=== PATIENT | female | born 1950 | race Caucasian/White ===

== ENCOUNTER 2017-07-07 19:57 | Inpatient (IN) | payer MEDICARE, OTHER ==
[~2017-07-07] VITALS: Ht 170.2 cm; Wt 60.4 kg
--- NOTE | 2017-07-07 20:05 | ED.ADGEN ---
Past History Past Medical History: Anxiety, Dementia, Depression Adult General Chief Complaint Chief Complaint " ,, I don't why I am here... Why did they... send me in the middle of the night..." HPI HPI Patient is a 67 year old female resident of [facility] at [facility], who presents with above hx increased anxiety, uncooperative behavior and sent to ED for screen for SBH. Pt. recent hx of mental status change, refusing meds, therapy and uncooperative with staff. Pt. has been a resident of [facility] since 06/11/17 after Lt hip surgery on 06/08. Pt. has recently been refusing to go to dinning room to eat. Emotional out burst at staff. Pt. does have hx. of Anxiety, Panic disorder, CARDz, HTN, COPD, Nicotine dependence, Hypomagnesium, Stage II CKD, CARBG, Hyponatremia, Dysthymic Personality disorder, Mild Neurocognitive disorder, dementia and recent Lt. Femur fx. Pt. previous under went Psychological assessment by Estefanía Luong ( See report 06/23/2017). Pt. apparently received Haldol before transfer to [place] for which she received bid and prn. for marked agitation and aggressive behavior. Pt very poor historian, appears sedated. Review of Systems Review of Systems Pt. limited historian Constitutional: Denies fever or chills [] Eyes: Denies change in visual acuity, redness, or eye pain [] HENT: Denies nasal congestion or sore throat [] Respiratory: Denies cough or shortness of breath [] Cardiovascular: No additional information not addressed in HPI [] GI: Denies abdominal pain, nausea, vomiting, bloody stools or diarrhea [] : Denies dysuria or hematuria [] Musculoskeletal: Denies back pain or joint pain [] Complaints of Lt hip pain- recent surgery Integument: Denies rash or skin lesions [] Neurologic: Denies headache, focal weakness or sensory changes [] Endocrine: Denies polyuria or polydipsia [] All other systems were reviewed and found to be within normal limits, except as documented in this note. Family History Family History Not currently available. Current Medications Current Medications Current Medications Medications (Trade) Dose Ordered Sig/Shabbir Start Time Stop Time Status Last Admin Dose Admin Cephalexin HCl (Keflex) 500 mg 1X ONCE 07/07/17 22:00 07/07/17 22:01 DC 07/07/17 22:00 500 MG Clindamycin Palmitate HCl (Cleocin Pediatric) 280 mg 1X ONCE 07/07/17 23:45 07/07/17 23:46 UNV See Nursing for record of [facility] rehab[facility] facility meds. Allergies Allergies Allergies Coded Allergies Type Severity Reaction Last Updated Verified Penicillins Allergy Unknown 07/07/17 Yes Sulfa (Sulfonamide Antibiotics) Allergy Unknown 07/07/17 Yes codeine Allergy Unknown 07/07/17 Yes levofloxacin Allergy Unknown 07/07/17 Yes sulfamethoxazole Allergy Unknown 07/07/17 Yes trimethoprim Allergy Unknown 07/07/17 Yes Physical Exam Physical Exam Constitutional: Well developed, well nourished, no acute distress, sedate in appearance. [] HENT: Normocephalic, atraumatic, bilateral external ears normal, oropharynx moist, no oral exudates, nose normal. [] Eyes: PERRLA, EOMI, conjunctiva normal, no discharge. [] Neck: Normal range of motion, no tenderness, supple, no stridor. [] Cardiovascular:Heart rate regular rhythm, no murmur [] Lungs & Thorax: Bilateral breath sounds clear to auscultation [] Mid line scar. Abdomen: Bowel sounds normal, soft, no tenderness, no masses, no pulsatile masses. [] Old scars. Skin: Warm, dry, no erythema, no rash. [] Poor turgor. Back: No tenderness, no CVA tenderness. [] Extremities: No tenderness, no cyanosis, no clubbing, ROM intact, no edema. [] Old harvest scars. Arthritis changes. lt. hips scar. No inflammation. Neurologic: Alert and oriented X 3, but slow to respond, no gross motor or sensory deficits from base line, no gross focal deficits noted. [] Psychologic: Affect flat, judgement appears limited, depressed mood normal. [] Denies suicidal ideation. Current Patient Data Vital Signs Vital Signs Date Time Temp Pulse Resp B/P (MAP) Pulse Ox O2 Delivery O2 Flow Rate FiO2 07/07/17 23:40 98.0 81 18 145/62 (89) 98 Room Air Lab Results Laboratory Tests Test 07/07/17 20:30 White Blood Count 11.3 x10^3/uL (4.0-11.0) H Red Blood Count 2.61 x10^6/uL (3.50-5.40) L Hemoglobin 8.3 g/dL (12.0-15.5) L Hematocrit 25.4 % (36.0-47.0) L Mean Corpuscular Volume 97 fL (79-100) Mean Corpuscular Hemoglobin 32 pg (25-35) Mean Corpuscular Hemoglobin Concent 33 g/dL (31-37) Red Cell Distribution Width 17.5 % (11.5-14.5) H Platelet Count 440 x10^3/uL (140-400) H Neutrophils (%) (Auto) 72 % (31-73) Lymphocytes (%) (Auto) 21 % (24-48) L Monocytes (%) (Auto) 6 % (0-9) Eosinophils (%) (Auto) 1 % (0-3) Basophils (%) (Auto) 1 % (0-3) Neutrophils # (Auto) 8.2 x10^3uL (1.8-7.7) H Lymphocytes # (Auto) 2.3 x10^3/uL (1.0-4.8) Monocytes # (Auto) 0.6 x10^3/uL (0.0-1.1) Eosinophils # (Auto) 0.1 x10^3/uL (0.0-0.7) Basophils # (Auto) 0.1 x10^3/uL (0.0-0.2) Erythrocyte Sedimentation Rate 65 (0-25) H Prothrombin Time 11.6 SEC (9.4-11.4) H Prothrombin Time INR 1.1 (0.9-1.1) PTT 30 SEC (23-33) Urine Collection Type Unknown Urine Color Yellow Urine Clarity Cloudy Urine pH 6.5 Urine Specific [place] 1.015 Urine Protein Neg (NEG-TRACE) Urine Glucose (UA) Neg mg/dL (NEG) Urine Ketones (Stick) Neg mg/dL (NEG) Urine Blood Neg (NEG) Urine Nitrite Neg (NEG) Urine Bilirubin Neg (NEG) Urine Urobilinogen Dipstick 0.2 mg/dL (0.2 mg/dL) Urine Leukocyte Esterase Trace (NEG) Urine RBC 0 /HPF (0-2) Urine WBC 5-10 /HPF (0-4) Urine Squamous Epithelial Cells Occ /LPF Urine Bacteria Many /HPF (0-FEW) Sodium Level 136 mmol/L (136-145) Potassium Level 4.4 mmol/L (3.5-5.1) Chloride Level 101 mmol/L (98-107) Carbon Dioxide Level 27 mmol/L (21-32) Anion Gap 8 (6-14) Blood Urea Nitrogen 15 mg/dL (7-20) Creatinine 1.3 mg/dL (0.6-1.0) H Estimated GFR (Cockcroft-Gault) 41.1 Glucose Level 125 mg/dL (70-99) H Calcium Level 9.1 mg/dL (8.5-10.1) Magnesium Level 1.9 mg/dL (1.8-2.4) Creatine Kinase 24 U/L (26-192) L Creatine Kinase MB (Mass) 0.6 ng/mL (0.0-3.6) Creatine Kinase MB Relative Index 2.5 % (0-4) Troponin I Quantitative < 0.017 ng/mL (0-0.055) BB-Let-F-Type Natriuretic Peptide 685 pg/mL (0-124) H Urine Opiates Screen Pos (NEG) Urine Methadone Screen Neg (NEG) Urine Barbiturates Neg (NEG) Urine Phencyclidine Screen Neg (NEG) Urine Amphetamine/Methamphetamine Neg (NEG) Urine Benzodiazepines Screen Neg (NEG) Urine Cocaine Screen Neg (NEG) Urine Cannabinoids Screen Neg (NEG) Urine Ethyl Alcohol Neg (NEG) EKG EKG My interpretation of EKG shows sinus rate of 81, no findings of acute STEMI with contralateral changes. []Sone non-specific anteroseptal changes and T changes. Radiology/Procedures Radiology/Procedures My interpretation of CT head shows no shift, mass, edema, bleed or fx. White mater changes[] My interpretation of CXR shows marked scoliosis. No acute cardiopulmonary findings. DJD joint changes. Old surgery clips. Course & Med Decision Making Course & Med Decision Making Pertinent Labs and Imaging studies reviewed. (See chart for details). Discussed presentation, testing and tx. plan with Dr. Wilkinson. Will follow up labs . Pt. to be admitted to [facility]- Dr. Lott. [] Final Impression Final Impression 1. Mental Status Change[] 2. Recent Lt Hip Fx- repair 3. UTI 4. Anemia 5. Leukocytosis 6. Elevated Creat. 7. Hx Dementia 8. Hx Anxiety 9. Hx of Agitation Problems: Dragon Disclaimer Dragon Disclaimer This electronic medical record was generated, in whole or in part, using a voice recognition dictation system. GENE CRAWFORD MD Jul 07, 2017 20:05
--- NOTE | 2017-07-07 20:20 | EKG ---
[address] [address] Test Date: 2017-07-07 Test Time: 20:15:44 Pat Name: QUYEN KELLEY Department: Room: Gender: F C 42A Crew Chief: KORY : 1950 Requested By: GENE CRAWFORD Order Number: [id number] Reading MD: Measurements Intervals [place] Rate: 81 P: 64 DC: 170 QRS: 45 QRSD: 78 T: 74 QT: 360 QTc: 419 Interpretive Statements SINUS RHYTHM QRS(T) CONTOUR ABNORMALITY CONSIDER ANTEROSEPTAL MYOCARDIAL DAMAGE T ABNORMALITY IN HIGH LATERAL LEADS ABNORMAL ECG RI6.01 No previous ECG available for comparison
[2017-07-07 20:58] LABS: BASO # 0.1 x10^3/uL (0.0-0.2); BASO % 1 % (0-3); EOS # 0.1 x10^3/uL (0.0-0.7); EOS % 1 % (0-3); HEMATOCRIT 25.4 % (36.0-47.0); HEMOGLOBIN 8.3 g/dL (12.0-15.5); LYMPH # 2.3 x10^3/uL (1.0-4.8); LYMPH % 21 % (24-48); MEAN CORPUSCULAR HEMOGLOBIN 32 pg (25-35); MEAN CORPUSCULAR HGB CONC 33 g/dL (31-37); MEAN CORPUSCULAR VOLUME 97 fL (79-100); MONO # 0.6 x10^3/uL (0.0-1.1); MONO % 6 % (0-9); NEUT # 8.2 x10^3uL (1.8-7.7); NEUT % 72 % (31-73); PLATELET COUNT 440 x10^3/uL (140-400); RED BLOOD COUNT 2.61 x10^6/uL (3.50-5.40); RED CELL DISTRIBUTION WIDTH 17.5 % (11.5-14.5); WHITE BLOOD COUNT 11.3 x10^3/uL (4.0-11.0)
[2017-07-07 21:03] LABS: BARBITURATES NEG (NEG); BENZODIAZEPINES NEG (NEG); CANNABINOIDS NEG (NEG); COCAINE NEG (NEG); METHADONE NEG (NEG); OPIATES POS (NEG); PHENCYCLIDINE NEG (NEG)
[2017-07-07 21:05] LABS: AMPHETAMINE/METHAMPHETAMINE NEG (NEG); CLARITY,URINE CLOUDY; COLOR,URINE YELLOW; GLUCOSE,URINE NEG (NEG)
[2017-07-07 21:06] LABS: BACTERIA,URINE MANY /HPF (0-FEW); BILIRUBIN,URINE NEG (NEG); NITRITE,URINE NEG (NEG); RBC,URINE 0 /HPF (0-2); SQUAMOUS EPITHELIAL CELL,UR OCC /LPF; UROBILINOGEN,URINE 0.2 mg/dL (0.2 mg/dL)
[2017-07-07 21:21] LABS: CALCIUM 9.1 mg/dL (8.5-10.1); CREATININE 1.3 mg/dL (0.6-1.0); GFR 41.1; MAGNESIUM 1.9 mg/dL (1.8-2.4); POTASSIUM 4.4 mmol/L (3.5-5.1)
--- NOTE | 2017-07-07 21:37 | RAD ---
PQRS Compliance Statement: One or more of the following individualized dose reduction techniques were utilized for this examination: 1. Automated exposure control 2. Adjustment of the mA and/or kV according to patient size 3. Use of iterative reconstruction technique CT HEAD WITHOUT CONTRAST History: Mental status change Comparison: None. Technique: Axial images are obtained of the head from the skull base through the vertex without IV contrast. Findings: No mass-effect, midline shift, extra-axial fluid collection, hemorrhage, or obvious acute infarction is identified. Basilar cisterns are patent. The ventricles and sulci are prominent, consistent with age-related cerebral atrophy. There is periventricular white matter hypoattenuation. This is a nonspecific finding but is commonly due to chronic small vessel ischemic disease. Bone windows demonstrate no acute calvarial abnormality. The visualized paranasal sinuses are clear. Mastoid air cells are well aerated. IMPRESSION: No acute intracranial abnormality. Electronically signed by: Lio Snyder MD (07/07/2017 9:33 PM) [facility]
[2017-07-07] MEDS ORDERED: HYDR-971 PO (21:45)
[2017-07-07] MEDS ORDERED: CHOL10003 PO (21:45)
[2017-07-07] MEDS ORDERED: FAMO40TA4 PO (21:45)
[2017-07-07] MEDS ORDERED: IPRA3AMP NEB (21:45)
[2017-07-07] MEDS ORDERED: ESCITALOPRAM OX20 MG PO (21:45)
[2017-07-07] MEDS ORDERED: FERR325T14 PO (21:45)
[2017-07-07] MEDS ORDERED: ASPI81TA50 PO (21:45)
[2017-07-07] MEDS ORDERED: LIDO700A39 TP (21:45)
[2017-07-07] MEDS ORDERED: MULT-671 PO (21:45)
[2017-07-07] MEDS ORDERED: LISI-338 PO (21:45)
[2017-07-07] MEDS ORDERED: NICO1PAT21 TD (21:45)
[2017-07-07] MEDS ORDERED: METO25TA2 PO (21:45)
[2017-07-07] MEDS ORDERED: HALO2TAB PO ×2 (21:45)
[2017-07-07] MEDS ORDERED: ATORVASTATIN CA80 MG PO (21:45)
[2017-07-07] MEDS ORDERED: ACET325T9 PO (21:45)
[2017-07-07] MEDS ORDERED: ENOX40DI SQ (21:45)
[2017-07-07] MEDS ORDERED: LEVE500T56 PO (21:45)
[2017-07-07] MEDS ORDERED: MAGN400O7 PO (21:45)
[2017-07-07] MEDS ORDERED: PANT40TA3 PO (21:45)
[2017-07-07] MEDS ORDERED: BUDE10.2 IH (21:45)
[2017-07-07] MEDS ORDERED: BENZ100C PO (21:45)
[2017-07-07] MEDS ORDERED: NA P133E2 RC (21:45)
[2017-07-07] MEDS ORDERED: POTA10TA10 PO (21:45)
[2017-07-07] MEDS ORDERED: CLON1TAB3 PO (21:45)
[2017-07-07] MEDS ORDERED: MAGN400T3 PO (21:45)
[2017-07-07] MEDS ORDERED: CEPHALEXIN 250 MG CAPSULE PO ONE (22:00)
[2017-07-07 22:04] LABS: SEDIMENTATION RATE 65 (0-25)
[2017-07-07] MEDS ORDERED: CLINDAMYCIN 75 MG/5 ML ORAL SOLUTION. PO ONE (23:45)
[2017-07-08] MEDS ORDERED: HALOPERIDOL 2 MG TABLET PO PRN (00:30)
[2017-07-08] MEDS ORDERED: METHYL SALICYLATE/MENTHOL TOPICAL OINTMENT 29GM TUBE. TP PRN (00:30)
[2017-07-08] MEDS ORDERED: SODIUM PHOSPHATES 19/7GM 133 ML ENEMA. RC PRN (00:30)
[2017-07-08] MEDS ORDERED: BENZONATATE 100 MG CAPSULE. PO PRN (00:30)
[2017-07-08] MEDS ORDERED: MAGNESIUM HYDROXIDE 2,400 MG/30 ML ORAL.SUSP. PO PRN (00:30)
[2017-07-08] MEDS ORDERED: MAG HYDROX/AL HYDROX/SIMETH 30 ML ORAL.SUSP PO PRN (00:30)
[2017-07-08] MEDS: HYDROcodone/APAP 5/325MG 1 TAB TABLET PO PRN ×3 (00:43→18:38)
[2017-07-08] MEDS ORDERED: CLINDAMYCIN HCL 150 MG CAPSULE PO ONE (00:45)
[2017-07-08 07:45] LABS: BASO % 0 % (0-3); EOS # 0.1 x10^3/uL (0.0-0.7); EOS % 1 % (0-3); HEMATOCRIT 27.8 % (36.0-47.0); HEMOGLOBIN 9.3 g/dL (12.0-15.5); LYMPH # 2.4 x10^3/uL (1.0-4.8); LYMPH % 21 % (24-48); MEAN CORPUSCULAR HEMOGLOBIN 33 pg (25-35); MEAN CORPUSCULAR HGB CONC 34 g/dL (31-37); MEAN CORPUSCULAR VOLUME 97 fL (79-100); MONO # 0.6 x10^3/uL (0.0-1.1); MONO % 5 % (0-9); NEUT # 8.5 x10^3uL (1.8-7.7); NEUT % 73 % (31-73); PLATELET COUNT 443 x10^3/uL (140-400); RED BLOOD COUNT 2.86 x10^6/uL (3.50-5.40); RED CELL DISTRIBUTION WIDTH 17.2 % (11.5-14.5); WHITE BLOOD COUNT 11.7 x10^3/uL (4.0-11.0)
[2017-07-08] MEDS: FAMOTIDINE 20 MG TABLET PO SCH ×2 (07:45→20:09)
[2017-07-08] MEDS: ENOXAPARIN 40 MG/0.4 ML DISP.SYRIN. SQ SCH (07:45)
[2017-07-08] MEDS: FERROUS SULFATE 325 MG TABLET. PO SCH (07:45)
[2017-07-08] MEDS: MULTIVITAMIN with MINERAL TABLET. PO SCH (07:45)
[2017-07-08] MEDS: ASPIRIN ENTERIC COATED 81 MG TABLET.DR. PO SCH (07:45)
[2017-07-08] MEDS: CHOLECALCIFEROL (VITAMIN D3) 1,000 UNIT TABLET PO SCH (07:45)
[2017-07-08] MEDS: LISINOPRIL 5 MG TABLET. PO SCH ×2 (07:45→20:10)
[2017-07-08] MEDS: clonazePAM 1 MG TABLET PO SCH ×3 (07:46→20:09)
[2017-07-08] MEDS: levETIRAcetam 500 MG TABLET PO SCH ×2 (07:46→20:09)
[2017-07-08] MEDS: HALOPERIDOL 2 MG TABLET PO SCH ×2 (07:46→20:09)
[2017-07-08] MEDS: POTASSIUM CHLORIDE 10 MEQ TABLET.ER. PO SCH ×2 (07:46→18:08)
[2017-07-08] MEDS: NICOTINE 21MG PATCH. TD SCH (07:47)
[2017-07-08] MEDS: LIDOCAINE (700MG/PATCH) PATCH. TP SCH (07:47)
[2017-07-08] MEDS: METOPROLOL SUCC 24HR ER 25 MG TAB.ER.24H. PO SCH (07:51)
[2017-07-08] MEDS: MAGNESIUM OXIDE 400 MG TABLET PO SCH (07:51)
[2017-07-08 07:54] LABS: ALBUMIN 2.6 g/dL (3.4-5.0); ALBUMIN/GLOBULIN RATIO 0.7 (1.0-1.7); CALCIUM 9.3 mg/dL (8.5-10.1); CREATININE 1.3 mg/dL (0.6-1.0); GFR 41.1; POTASSIUM 4.5 mmol/L (3.5-5.1); TOTAL BILIRUBIN 0.3 mg/dL (0.2-1.0); TOTAL PROTEIN 6.6 g/dL (6.4-8.2)
--- NOTE | 2017-07-08 08:48 | RAD ---
AP chest x-ray History: Shortness of breath. Findings: Heart size normal. Thoracic aorta calcified plaque. There is asymmetric enlargement of the left hilum. Hyperexpansion of the lungs with decreased pulmonary vasculature at the apices likely indicative of pulmonary emphysema. There is no pleural line evident to suggest a pneumothorax. No pulmonary opacities or pleural effusions. Thoracolumbar scoliosis. Right posterior 10th rib fracture with mild distraction of indeterminate age. Impression: Age-indeterminate fracture of the right posterior 10th rib fracture. No acute cardiopulmonary process. Asymmetric enlargement of the left hilum which could be due to overlapping pulmonary vasculature versus a mass or adenopathy. This could be further assessed by CT imaging. See discussion above.
[2017-07-08] MEDS ORDERED: CITALOPRAM 20 MG TABLET. PO SCH (09:00)
[2017-07-08] MEDS ORDERED: NON FORMULARY ITEM (Budesonide/Formoterol Fumarate (Symbicort 160-4.5 Mcg Inhaler) 2 PUFF) IH SCH (09:00)
[2017-07-08] MEDS ORDERED: ALBUTEROL SULFATE 2.5 MG/3 ML NEBU. NEB PRN (10:00)
[2017-07-08 10:11] LABS: THYROID STIM HORMONE (TSH) 2.471 uIU/mL (0.358-3.740)
[2017-07-08 13:14] LABS: THYROXINE 7.5 ug/dL (4.5-12.0)
--- NOTE | 2017-07-08 14:59 | CONS ---
DATE OF CONSULTATION: 07/08/2017 REASON FOR CONSULTATION: Medical management. HISTORY OF PRESENT ILLNESS: The patient a 67-year-old female patient resident who is currently at [facility] where she is supposed to be getting rehabilitation as she broke her hip and underwent open reduction and internal fixation. However, the patient has been increasingly depressed, refusing to get out of bed or do therapy. Her appetite is very poor and decreased withdrawal behavior. When I questioned her today, she is complaining of pain mostly in her back and her head. She was in a wheelchair, as she wanted to bed, she refused to have her lunch. PAST MEDICAL HISTORY: Significant for coronary artery disease, hypertension, hyperlipidemia, COPD, hypomagnesemia, hyponatremia, stage 3 chronic kidney disease. She continued to smoke. She apparently has broken both hips, although not the same time and for both she underwent open reduction and internal fixation. PAST PSYCHIATRIC HISTORY: Significant for major depressive disorder, anxiety and panic attack. PAST SURGICAL HISTORY: Significant for bilateral hip fractures, status post open reduction and internal fixation. She has also appendectomy and cholecystectomy. ALLERGIES: PENICILLIN, SULFA DRUGS, CODEINE, LEVOFLOXACIN, SULFAMETHOXAZOLE AND TRIMETHOPRIM. MEDICATIONS: She is currently on following medications: She is on DuoNeb 0.5-2.5 mg 3 mL by nebulizer twice a day. She is on nicotine patch 21 mg transdermal patch daily, ferrous sulfate 325 mg every other day, Lovenox 40 mg daily, atorvastatin calcium 80 mg at bedtime, metoprolol succinate 25 mg once a day, lisinopril 5 mg twice a day, aspirin 81 mg once a day. She is on hydrocodone/APAP 5/325 one tablet every 6 hours, Tylenol 650 mg every 4 hours, clonazepam 1 mg 3 times a day, levetiracetam or Keppra 500 mg twice a day. She is on Lexapro 20 mg once a day, Haldol 2 mg twice a day, potassium chloride 10 mEq twice a day. She is on Symbicort 160/4.5 mcg 2 puffs twice a day, magnesium oxide 400 mg once a day, magnesium oxide, milk of magnesia 30 mL p.o. daily p.r.n. for constipation, famotidine 40 mg twice a day, Protonix 40 mg daily, Lidoderm patch topically to the right hip on for 12 hours and off for 12 hours, vitamin D 1000 international unit once a day, multivitamin 1 tablet once a day. FAMILY HISTORY: Unremarkable. SOCIAL HISTORY: She apparently used to live alone. She has 2 sons. 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 She has been a smoker for 40 years. She said she cut down and now smoking only 4 cigarettes. Does not drink alcohol or use any recreational drugs. REVIEW OF SYSTEMS: She basically denied any blurring of vision, did have bilateral cataracts, but denied any glaucoma or macular degeneration. Denied any earache, tinnitus or sensorineural deafness. Denied any nosebleeds, stuffy nose or postnasal drip. Denied any sore throat, sore tongue, toothache, hoarseness of voice or difficulty swallowing. Denied any nausea, vomiting, diarrhea or constipation. Denied any hematemesis, melena or hematochezia. Denied any dysuria, frequency or hematuria. Denied any chest pain, shortness of breath, orthopnea, paroxysmal nocturnal dyspnea. Her main complaint is low back pain and pain in both hip joints and inability to walk. PHYSICAL EXAMINATION: GENERAL: When I saw her today, she was sitting comfortably in her wheelchair, in no apparent distress. She was extremely pale, cachectic, no jaundice or cyanosis. No lymphadenopathy, no thyromegaly. No jugular venous distension. No lower limb edema. VITAL SIGNS: Her heart rate was 81, blood pressure was 145/62, temperature was 98, respiratory rate was 20, and oxygen saturation was 98% on room air. HEENT: Showed normocephalic, atraumatic. NECK: Supple, with no lymphadenopathy, no thyromegaly. No jugular venous distension. No audible bruit. HEART: Showed normal first and second heart sounds with no gallop, rub or murmur. CHEST: Clear to auscultation. No crepitation or rhonchi. ABDOMEN: Scaphoid, soft, nontender. NEUROLOGIC: She is awake, alert. All her cranial nerves intact. She has a slow monotonous speech. She moves extremities without difficulty. She has marked muscle wasting and weakness. She is mostly bedbound, chair bound. LABORATORY DATA: As of this morning showed a white cell count of 11,700, hemoglobin 9, hematocrit 27, MCV 97, and platelet count 443,000. Her chemistry showed a serum sodium 135, potassium 4.5, chloride 100, bicarbonate 27, anion gap of 8, BUN 14, creatinine 1.3, estimated GFR was 41 mL per minute. His glucose was 99, calcium was 9.3. Her serum iron was 16, TIBC was 146 and percent saturation was 11. Total bilirubin, AST, ALT were normal. Alkaline phosphatase was slightly elevated. Total protein was 6.6, albumin was 2.6. Her serum triglycerides were 96. Total cholesterol was 89, LDL was 26, VLDL was 19, HDL cholesterol was 44 and the ratio was 2. Her TSH was normal at 2.471. Her prothrombin time was 11.6, INR 1.1, aPTT was 30, and her urinalysis was essentially unremarkable. There were only 5-10 WBC, many bacteria, but negative for nitrite and trace of leukocyte esterase. Her toxic screen was positive for opiates, but negative for methadone, barbiturates, phencyclidine, amphetamine and methamphetamine, benzodiazepine, cocaine as well as alcohol. She did have a chest x-ray, which showed the heart size is normal. There is a symmetric enlargement of the left hilum, hyperexpansion of the lungs with decreased pulmonary vasculature. This is likely indicative of pulmonary emphysema. There is no pleural effusion evident to suggest pneumothorax and no pulmonary opacities or pleural effusion. Thoracolumbar scoliosis, right posterior tenth rib fracture with mild distraction of indeterminate age. She has had a CT scan of the head, which basically showed that no mass effect, midline shift, extra-axial fluid collection, hemorrhage or obvious acute infarction identified. Basilar cisterns are patent. The ventricles and sulci are prominent consistent with age-related cerebral atrophy. There is periventricular white matter hypoattenuation. This is a nonspecific finding, but is commonly due to chronic small vessel ischemic disease. IMPRESSION: In summary, this is a 67-year-old female patient who is currently at [facility] after she broke her left femur, treated with open reduction and internal fixation. She apparently has been increasingly depressed, refusing to get out of the bed or do therapy, decreased appetite, increasingly withdrawn, behavior, all this in a background of major depressive disorder with psychotic features. The patient is here for inpatient psychiatric stabilization. Medically she seemed to be stable. All her vital signs and her lab works are all within acceptable range. She has back pain and pain in her hip joints as well as poor appetite. PLAN: My plan is to x-ray of her hips and also her back and also given that her poor appetite and her body mass index, sometimes pancreatic cancer can be presented with severe depression and I will arrange for her to have a CT scan of the abdomen and pelvis and would decide on further management accordingly. Thank you for giving me the opportunity to participate in the care of this patient. JOEL DAVIS MD DR: LEW/mikey JOB#: [id number] / [id number]
--- NOTE | 2017-07-08 15:21 | RAD ---
CT abdomen and pelvis with contrast History: Abdominal pain, back pain with weight loss. Technique: Helical CT imaging of the abdomen and pelvis with 60 mL Omnipaque 300 intravenous contrast. Abdomen findings: Lumbar scoliosis with disc bulges and facet osteophytes and multilevel spinal canal and neural foraminal stenoses. There is mild anterior buckling and bone sclerosis of the third sacral vertebra without a lucent fracture, likely an old healed fracture. There is a subacute or chronic fifth sacral segment fracture with mild cortical offset and bone sclerosis. Old right posterior 11th rib fracture. Dilation of the extrahepatic bile ducts the common bile duct has a diameter of 12 mm proximally and tapers distally likely related to cholecystectomy. Pancreatic duct diameter 3 mm upper limits of normal. 2 cm oval hypodense lesion central right hepatic lobe adjacent to the IVC density of 40 units this is indeterminate. There appear to be small densities along the posterior aspect of the common duct on axial images 38-40, small calculi are not excluded. Pancreas, adrenals, spleen unremarkable. Numerous renal cysts as well as hypodensities lesions which are indeterminate based on their internal density of greater than 20 units. Appendix is not visualized. No obstruction or inflammatory changes in GI tract. Extensive calcified plaque of the aorta and arteries and iliac arteries with moderate stenotic disease, severe stenoses of the common iliac arteries are likely present. No abdominal fluid or adenopathy. Pelvis findings: Hysterectomy. Ovaries are absent. Bladder and rectum are unremarkable. No fluid or adenopathy. Screws of the right femoral neck bridging a nonunion fracture. Left hip arthroplasty with surrounding streak artifact. Impression: 1. Mild biliary ductal dilation. Common bile duct diameter is 12 mm. While this could be secondary to cholecystectomy, there are subtle densities at the distal common duct dependently raising the possibility of choledocholithiasis. 2. Renal cysts and indeterminate hypodense lesions based on densities of greater than 20 units may be hemorrhagic cysts although hypodense solid masses cannot be excluded. Correlation with nonemergent renal sonography may be of benefit. 3. Lumbar disc disease with multilevel spinal canal stenoses. 4. Chronic-appearing sacral fractures as described above. 5. Indeterminate 2 cm oval hypodense lesion of the right hepatic lobe with an internal density of 40 units. This may be further characterized by sonography or MR imaging. 6. Appendix not visualized. 7. Iliac artery atherosclerotic disease with high-grade stenoses.
[2017-07-08 16:07] VITALS: BP 104/52
[2017-07-08] MEDS: PANTOPRAZOLE 40 MG TABLET. PO SCH (18:07)
[2017-07-08] MEDS: ACETAMINOPHEN 325 MG TABLET PO PRN (18:38)
[2017-07-08] MEDS ORDERED: traZODone 50 MG TABLET. PO PRN (19:30)
--- NOTE | 2017-07-08 19:41 | PDOC ---
Exam Note: Avery Note: Please also refer to the separate dictated note~for this date of service dictated separately.~Patient seen individually. Discussed the patient with Nursing staff reviewed the chart.~Reviewed interim history and current functioning. Reviewed vital signs,~Labs/ Radiology~and current medications noted below. Continue current treatment with the changes noted in the dictated addendum note Assessment: Vital Signs: Vital Signs Date Time Temp Pulse Resp B/P (MAP) Pulse Ox O2 Delivery O2 Flow Rate FiO2 07/08/17 18:38 98 07/08/17 16:07 97.7 79 18 104/52 (69) Room Air Labs: Laboratory Tests Test 07/07/17 20:30 07/08/17 07:34 White Blood Count 11.3 x10^3/uL (4.0-11.0) H 11.7 x10^3/uL (4.0-11.0) H Red Blood Count 2.61 x10^6/uL (3.50-5.40) L 2.86 x10^6/uL (3.50-5.40) L Hemoglobin 8.3 g/dL (12.0-15.5) L 9.3 g/dL (12.0-15.5) L Hematocrit 25.4 % (36.0-47.0) L 27.8 % (36.0-47.0) L Mean Corpuscular Volume 97 fL (79-100) 97 fL (79-100) Mean Corpuscular Hemoglobin 32 pg (25-35) 33 pg (25-35) Mean Corpuscular Hemoglobin Concent 33 g/dL (31-37) 34 g/dL (31-37) Red Cell Distribution Width 17.5 % (11.5-14.5) H 17.2 % (11.5-14.5) H Platelet Count 440 x10^3/uL (140-400) H 443 x10^3/uL (140-400) H Neutrophils (%) (Auto) 72 % (31-73) 73 % (31-73) Lymphocytes (%) (Auto) 21 % (24-48) L 21 % (24-48) L Monocytes (%) (Auto) 6 % (0-9) 5 % (0-9) Eosinophils (%) (Auto) 1 % (0-3) 1 % (0-3) Basophils (%) (Auto) 1 % (0-3) 0 % (0-3) Neutrophils # (Auto) 8.2 x10^3uL (1.8-7.7) H 8.5 x10^3uL (1.8-7.7) H Lymphocytes # (Auto) 2.3 x10^3/uL (1.0-4.8) 2.4 x10^3/uL (1.0-4.8) Monocytes # (Auto) 0.6 x10^3/uL (0.0-1.1) 0.6 x10^3/uL (0.0-1.1) Eosinophils # (Auto) 0.1 x10^3/uL (0.0-0.7) 0.1 x10^3/uL (0.0-0.7) Basophils # (Auto) 0.1 x10^3/uL (0.0-0.2) 0.0 x10^3/uL (0.0-0.2) Erythrocyte Sedimentation Rate 65 (0-25) H 74 (0-25) H Reticulocyte Count (auto) 1.6 % (0.5-2.5) Prothrombin Time 11.6 SEC (9.4-11.4) H Prothrombin Time INR 1.1 (0.9-1.1) PTT 30 SEC (23-33) Urine Collection Type Unknown Urine Color Yellow Urine Clarity Cloudy Urine pH 6.5 Urine Specific [place] 1.015 Urine Protein Neg (NEG-TRACE) Urine Glucose (UA) Neg mg/dL (NEG) Urine Ketones (Stick) Neg mg/dL (NEG) Urine Blood Neg (NEG) Urine Nitrite Neg (NEG) Urine Bilirubin Neg (NEG) Urine Urobilinogen Dipstick 0.2 mg/dL (0.2 mg/dL) Urine Leukocyte Esterase Trace (NEG) Urine RBC 0 /HPF (0-2) Urine WBC 5-10 /HPF (0-4) Urine Squamous Epithelial Cells Occ /LPF Urine Bacteria Many /HPF (0-FEW) Sodium Level 136 mmol/L (136-145) 135 mmol/L (136-145) L Potassium Level 4.4 mmol/L (3.5-5.1) 4.5 mmol/L (3.5-5.1) Chloride Level 101 mmol/L (98-107) 100 mmol/L (98-107) Carbon Dioxide Level 27 mmol/L (21-32) 27 mmol/L (21-32) Anion Gap 8 (6-14) 8 (6-14) Blood Urea Nitrogen 15 mg/dL (7-20) 14 mg/dL (7-20) Creatinine 1.3 mg/dL (0.6-1.0) H 1.3 mg/dL (0.6-1.0) H Estimated GFR (Cockcroft-Gault) 41.1 41.1 Glucose Level 125 mg/dL (70-99) H 99 mg/dL (70-99) Calcium Level 9.1 mg/dL (8.5-10.1) 9.3 mg/dL (8.5-10.1) Magnesium Level 1.9 mg/dL (1.8-2.4) Iron Level 16 ug/dL (50-170) L Total Iron Binding Capacity 146 ug/dL (250-450) L Iron Saturation 11 % (15-34) L Creatine Kinase 24 U/L (26-192) L Creatine Kinase MB (Mass) 0.6 ng/mL (0.0-3.6) Creatine Kinase MB Relative Index 2.5 % (0-4) Troponin I Quantitative < 0.017 ng/mL (0-0.055) MR-Lnz-D-Type Natriuretic Peptide 685 pg/mL (0-124) H Triglycerides Level 96 mg/dL (0-150) Cholesterol Level 89 mg/dL (0-200) LDL Cholesterol, Calculated 26 mg/dL (0-100) VLDL Cholesterol, Calculated 19 mg/dL (0-40) Non-HDL Cholesterol Calculated 45 mg/dL (0-129) HDL Cholesterol 44 mg/dL (40-60) Cholesterol/HDL Ratio 2.0 Thyroid Stimulating Hormone (TSH) 2.471 uIU/mL (0.358-3.740) Thyroxine (T4) 7.5 ug/dL (4.5-12.0) Total Triiodothyronine (TT3) 98 ng/dL (71-180) Urine Opiates Screen Pos (NEG) Urine Methadone Screen Neg (NEG) Urine Barbiturates Neg (NEG) Urine Phencyclidine Screen Neg (NEG) Urine Amphetamine/Methamphetamine Neg (NEG) Urine Benzodiazepines Screen Neg (NEG) Urine Cocaine Screen Neg (NEG) Urine Cannabinoids Screen Neg (NEG) Urine Ethyl Alcohol Neg (NEG) BUN/Creatinine Ratio 11 (6-20) Total Bilirubin 0.3 mg/dL (0.2-1.0) Aspartate Amino Transferase (AST) 19 U/L (15-37) Alanine Aminotransferase (ALT) 22 U/L (14-59) Alkaline Phosphatase 150 U/L (46-116) H C-Reactive Protein 43.7 mg/L (0-3.3) H Total Protein 6.6 g/dL (6.4-8.2) Albumin 2.6 g/dL (3.4-5.0) L Albumin/Globulin Ratio 0.7 (1.0-1.7) L Current Medications: Meds: Current Medications Cephalexin HCl (Keflex) 500 mg 1X ONCE PO Last administered on 07/07/17at 22:00 ; Start 07/07/17 at 22:00; Stop 07/07/17 at 22:01; Status DC Clindamycin Palmitate HCl (Cleocin Pediatric) 280 mg 1X ONCE PO ; Start at 23:45; Stop 07/07/17 at 23:46; Status UNV Acetaminophen (Tylenol) 650 mg PRN Q6HRS PRN PO PAIN / TEMP Last administered on 07/08/17at 18:38; Start 07/08/17 at 00:30 Multi-Ingredient Ointment (Analgesic [place]) 1 meme PRN QID PRN TP MUSCLE PAIN; Start 07/08/17 at 00:30 Al Hydroxide/Mg Hydroxide (Mylanta Plus Xs) 15 ml PRN AFTMEALHC PRN PO DYSPEPSIA; Start 07/08/17 at 00:30 Nicotine (Nicoderm Cq 21mg) 1 patch DAILY TD Last administered on 07/08/17at 07: 47; Start 07/08/17 at 09:00 Clonazepam (KlonoPIN) 1 mg TID PO Last administered on 07/08/17at 12:12; Start 07/08/17 at 09:00; Stop 07/08/17 at 19:33; Status DC Haloperidol (Haldol) 1 mg BID PO Last administered on 07/08/17at 07:46; Start at 09:00 Haloperidol (Haldol) 2 mg PRN Q6HRS PRN PO AGITATION; Start 07/08/17 at 00:30 Levetiracetam (Keppra) 500 mg BID PO Last administered on 07/08/17 07:46; Start 07/08/17 at 09:00 Citalopram Hydrobromide (CeleXA) 40 mg DAILY PO Last administered on 07/08/17 07:46; Start 07/08/17 at 09:00; Stop 07/08/17 at 19:33; Status DC Aspirin (Aspirin Enteric Coated) 81 mg DAILY PO Last administered on 07/08/17 07:45; Start 07/08/17 at 09:00 Benzonatate (Tessalon Perle) 100 mg PRN TID PRN PO COUGH; Start 07/08/17 at 00: 30 Vitamin D (Vitamin D3) 1,000 unit DAILY PO Last administered on 07/08/17at 07:45 ; Start 07/08/17 at 09:00 Enoxaparin Sodium (Lovenox) 40 mg DAILY SQ Last administered on 07/08/17 07:45 ; Start 07/08/17 at 09:00 Ferrous Sulfate (Feosol) 325 mg QODAY PO Last administered on 07/08/17 07:45; Start 07/08/17 at 09:00 Acetaminophen/ Hydrocodone Bitart (Lortab 5/325) 1 tab PRN Q6HRS PRN PO PAIN Last administered on 07/08/17at 18:38; Start 07/08/17 at 00:30 Albuterol/ Ipratropium (Duoneb) 3 ml RTBID NEB ; Start 07/08/17 at 08:00 Lidocaine (Lidoderm) 1 patch DAILY TP Last administered on 07/08/17 07:47; Start 07/08/17 at 09:00 Lisinopril (Prinivil) 5 mg BID PO Last administered on 07/08/17 07:45; Start 07/08/17 at 09:00 Magnesium Hydroxide (Milk Of Magnesia) 2,400 mg PRN DAILY PRN PO CONSTIPATION; Start 07/08/17 at 00:30 Magnesium Oxide (Magnesium Oxide) 400 mg DAILY PO Last administered on at 07:51; Start 07/08/17 at 09:00 Metoprolol Succinate (Toprol Xl) 25 mg DAILY PO Last administered on 07/08/17at 07:51; Start 07/08/17 at 09:00 Sodium Biphosphate/ Sodium Phosphate (Fleet Adult) 133 ml PRN 1X PRN RC CONSTIPATION; Start 07/08/17 at 00:30 Pantoprazole Sodium (Protonix) 80 mg DAILYBFRSUP PO Last administered on at 18:07; Start 07/08/17 at 17:00 Atorvastatin Calcium (Lipitor) 80 mg QHS PO ; Start 07/08/17 at 21:00 Non-Formulary Medication (Budesonide/ Formoterol Fumarate (Symbicort 160-4.5 Mcg Inhaler)) 2 puff BID IH ; Start 07/08/17 at 09:00; Status UNV Famotidine (Pepcid) 40 mg BID PO Last administered on 07/08/17at 07:45; Start at 09:00 Multivitamins/ Calcium (Thera-M Plus) 1 tab DAILY PO Last administered on at 07:45; Start 07/08/17 at 09:00 Potassium Chloride (Klor-Con) 10 meq BIDWMEALS PO Last administered on at 18:08; Start 07/08/17 at 08:00 Miscellaneous (Lidoderm Patch Removal) 1 ea QHS MC ; Start 07/08/17 at 21:00 Clindamycin HCl (Cleocin) 300 mg 1X ONCE PO Last administered on 07/08/17at 00: 43; Start 07/08/17 at 00:45; Stop 07/08/17 at 00:46; Status DC Budesonide (Pulmicort) 0.5 mg RTBID NEB ; Start 07/08/17 at 08:00 Albuterol Sulfate (Ventolin) 2.5 mg PRN Q6HRS PRN NEB SHORTNESS OF BREATH; Start 07/08/17 at 10:00 Bupropion HCl (Wellbutrin Xl) 150 mg DAILY PO ; Start 07/09/17 at 09:00; Stop at 07:00 Bupropion HCl (Wellbutrin Xl) 300 mg DAILY PO ; Start 07/12/17 at 09:00 Trazodone HCl (Desyrel) 50 mg PRN QHS PRN PO INSOMNIA; Start 07/08/17 at 19:30 Clonazepam (KlonoPIN) 0.75 mg DAILY PO ; Start 07/09/17 at 09:00 Clonazepam (KlonoPIN) 1 mg BID PO ; Start 07/08/17 at 21:00; Status UNV Active Scripts Active Reported Vitamin D3 (Cholecalciferol (Vitamin D3)) 1,000 Unit Tablet 1,000 Unit PO DAILY Toprol Xl (Metoprolol Succinate) 25 Mg Tab.er.24h 25 Mg PO DAILY Tessalon Perle (Benzonatate) 100 Mg Capsule 100 Mg PO PRN TID PRN Symbicort 160-4.5 Mcg Inhaler (Budesonide/Formoterol Fumarate) 10.2 Gm Hfa.aer.ad 2 Puff IH BID Protonix (Pantoprazole Sodium) 40 Mg Tablet.dr 80 Mg PO DAILYBFRSUP Potassium Chloride 10 Meq Tablet.er 10 Meq PO BID [place] 5-325 Tablet (Hydrocodone Bit/Acetaminophen) 1 Each Tablet 1 Tab PO PRN Q6HRS PRN NICODERM CQ 21mg (Nicotine) 1 Each Patch.td24 1 Patch TD DAILY Dfwkr-Lharwzq-Phfjhlhr Tablet (Multivit-Min/Iron Fum/Folic AC) 1 Each Tablet 1 Tab PO DAILY Milk Of Magnesia (Magnesium Hydroxide) 400 Mg/5 Ml Oral.susp 2,400 Mg PO PRN DAILY PRN Magnesium Oxide 400 Mg Tablet 400 Mg PO DAILY Lisinopril 5 Mg Tablet 5 Mg PO BID Lidocaine 1 Each Adh..patch 1 Patch TP DAILY Keppra (Levetiracetam) 500 Mg Tablet 500 Mg PO BID Duoneb 0.5-3(2.5) Mg/3 Ml (Albuterol/Ipratropium) 3 Ml Ampul.neb 3 Ml NEB BID Haloperidol 2 Mg Tablet 1 Mg PO BID Haloperidol 2 Mg Tablet 2 Mg PO PRN Q6HRS PRN Fleet Enema (Na Phos,M-B/Na Phos,Di-Ba) 133 Ml Enema 133 Ml RC PRN 1X PRN Ferrous Sulfate 325 Mg Tablet 325 Mg PO QODAY Famotidine 40 Mg Tablet 40 Mg PO BID Escitalopram Oxalate 20 Mg Tablet 20 Mg PO DAILY Lovenox (Enoxaparin Sodium) 40 Mg/0.4 Ml Disp.syrin 40 Mg SQ DAILY Clonazepam 1 Mg Tablet 1 Mg PO TID Atorvastatin Calcium 80 Mg Tablet 80 Mg PO QHS Aspir-Low (Aspirin) 81 Mg Tablet. 81 Mg PO DAILY Tylenol (Acetaminophen) 325 Mg Tablet 650 Mg PO PRN Q24HRS PRN I have reviewed the current psychotropics carefully including drug interactions. Risk benefit ratio favors no change other than as noted in my dictated progress note. Diagnosis: Problems: (1) Anxiety disorder (2) Major depressive disorder, recurrent episode (3) Mild cognitive disorder CELESTINE RAY MD Jul 08, 2017 19:40
[2017-07-08] MEDS: BUDESONIDE 0.5 MG/2 ML NEBU NEB SCH ×2 (20:00→22:26)
[2017-07-08] MEDS: IPRATRPIUM/ALBUTEROL 0.5/2.5MG 3 ML NEBU. NEB SCH ×2 (20:00→22:26)
[2017-07-08] MEDS: PATCH REMOVAL. MC SCH (20:11)
[2017-07-08] MEDS: ATORVASTATIN CALCIUM 20 MG TABLET PO SCH (20:13)
--- NOTE | 2017-07-08 22:07 | HP ---
ADMIT DATE: 07/07/2017 PSYCHIATRIC ADMISSION HISTORY/EVALUATION IDENTIFYING DATA: The patient is a 67-year-old female referred to us from [facility] in [place], [place] by Marie Cortez MD, her primary care physician on account of worsening symptoms of depression, weight loss from 135 pounds down to 119 pounds, refusing to do therapy, lying in bed over the past 2 weeks, declined participation in all treatment, interventions and over the past week, refusing to go to the dining room with marked decrease in appetite and weight is noted. Declined has been worsening for 2 weeks, much worse for the past 1 week. She has failed outpatient psychiatric interventions with Dr. Henning resulting in this referral. CHIEF COMPLAINT: "I am getting better." The patient responded after I introduced myself, took her history, discussed her depression. HISTORY OF PRESENT ILLNESS: The patient has been increasingly depressed for the past 2 weeks as noted with significant weight loss, appetite change, apathy, anhedonia, demotivation, feeling hopeless, helpless, worthless. The patient denies clear psychotic symptoms or suicidal ideation. No clear history of bipolar disorder. She has had some short-term memory deficits and panic attacks as well. PAST PSYCHIATRIC HISTORY: Past psychiatric history is positive for depression. PAST MEDICAL HISTORY: Status post fractured left femur, hyponatremia, stage 3 chronic kidney disease, CHF, CAD, hypertension, hyperlipidemia, COPD, hypomagnesemia. SOCIAL HISTORY: She is a smoker. ALLERGIES: TO CODEINE, PENICILLIN, SULFA, BACTRIM, LEVAQUIN. CODE STATUS: Full code ACCU-CHEKS: None. DIET: Regular. Takes her medications whole. ambulates wheelchair with 1-person assist for transfers. UA positive on 07/07/2017, on Keflex and clindamycin with some leukocytosis evident. CURRENT PSYCHOTROPICS: Klonopin 1 mg 3 times a day, Keppra 500 mg b.i.d. for possible seizure disorder, Celexa 40 mg a day, Haldol 1 mg b.i.d. 2 mg q. 6 hours p.r.n. psychosis. FAMILY HISTORY: Noncontributory. SOCIAL HISTORY: No alcohol, drug abuse, physical, sexual or elder abuse. She is not known to be a perpetrator. 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 She is in the middle of a divorce and ex- is coming into the home and assisting her. MENTAL STATUS EXAMINATION: The patient was seen individually in the evening of 07/08/2017. She was aware it is 06/2017, unaware of the date, felt she came here on" Monday." In fact, she was admitted on 07/08/2017 earlier today. Speech has some latency, coherent. Abstraction fair, computation is impaired, language function intact, attention span short. Mood and affect is depressed, but no active suicidal ideation. ASSETS: Supportive family. REACTION TO HOSPITALIZATION: The patient accepting of it. REVIEW OF SYSTEMS: Ambulation impaired, in wheelchair. No CV, , pulmonary, eye system symptoms on review. IMPRESSION: Major depressive disorder, recurrent, severe with possible psychotic features; anxiety disorder, unspecified, cognitive disorder, unspecified. PLAN: Change the patient's Celexa to Wellbutrin XL 150 mg a day in the morning, increasing in 3 days to 300 mg a day. This should be more activating energizing for her. She slept 3-1/2 hours last night. We will add trazodone 50 mg at bedtime p.r.n. insomnia. She is on a rather large dosage of Klonopin 1 mg 3 times a day, which could be causing her to be more withdrawn, isolative, and we will reduce the morning dosage to 0.75 mg and gradually reduce the dosage further. Treat the UTI per Dr. Wilkinson from a medical standpoint and I will see her daily individually from a psychiatric standpoint. Estimated length of stay is 10-12 days. MAN Karthikeyan RAY MD DR: ROSA/mikey JOB#: [id number] / [id number]
--- NOTE | 2017-07-08 22:26 | PDOC ---
Exam Note: Avery Note: Please also refer to the separate dictated note~for this date of service dictated separately.~Patient seen individually. Discussed the patient with Nursing staff reviewed the chart.~Reviewed interim history and current functioning. Reviewed vital signs,~Labs/ Radiology~and current medications noted below. Continue current treatment with the changes noted in the dictated addendum note Assessment: Vital Signs: Vital Signs Date Time Temp Pulse Resp B/P (MAP) Pulse Ox O2 Delivery O2 Flow Rate FiO2 07/08/17 20:35 99 Room Air 07/08/17 20:10 79 104/52 07/08/17 19:38 18 07/08/17 16:07 97.7 Labs: Laboratory Tests Test 07/08/17 07:34 White Blood Count 11.7 x10^3/uL (4.0-11.0) H Red Blood Count 2.86 x10^6/uL (3.50-5.40) L Hemoglobin 9.3 g/dL (12.0-15.5) L Hematocrit 27.8 % (36.0-47.0) L Mean Corpuscular Volume 97 fL (79-100) Mean Corpuscular Hemoglobin 33 pg (25-35) Mean Corpuscular Hemoglobin Concent 34 g/dL (31-37) Red Cell Distribution Width 17.2 % (11.5-14.5) H Platelet Count 443 x10^3/uL (140-400) H Neutrophils (%) (Auto) 73 % (31-73) Lymphocytes (%) (Auto) 21 % (24-48) L Monocytes (%) (Auto) 5 % (0-9) Eosinophils (%) (Auto) 1 % (0-3) Basophils (%) (Auto) 0 % (0-3) Neutrophils # (Auto) 8.5 x10^3uL (1.8-7.7) H Lymphocytes # (Auto) 2.4 x10^3/uL (1.0-4.8) Monocytes # (Auto) 0.6 x10^3/uL (0.0-1.1) Eosinophils # (Auto) 0.1 x10^3/uL (0.0-0.7) Basophils # (Auto) 0.0 x10^3/uL (0.0-0.2) Erythrocyte Sedimentation Rate 74 (0-25) H Sodium Level 135 mmol/L (136-145) L Potassium Level 4.5 mmol/L (3.5-5.1) Chloride Level 100 mmol/L (98-107) Carbon Dioxide Level 27 mmol/L (21-32) Anion Gap 8 (6-14) Blood Urea Nitrogen 14 mg/dL (7-20) Creatinine 1.3 mg/dL (0.6-1.0) H Estimated GFR (Cockcroft-Gault) 41.1 BUN/Creatinine Ratio 11 (6-20) Glucose Level 99 mg/dL (70-99) Calcium Level 9.3 mg/dL (8.5-10.1) Total Bilirubin 0.3 mg/dL (0.2-1.0) Aspartate Amino Transferase (AST) 19 U/L (15-37) Alanine Aminotransferase (ALT) 22 U/L (14-59) Alkaline Phosphatase 150 U/L (46-116) H C-Reactive Protein 43.7 mg/L (0-3.3) H Total Protein 6.6 g/dL (6.4-8.2) Albumin 2.6 g/dL (3.4-5.0) L Albumin/Globulin Ratio 0.7 (1.0-1.7) L Current Medications: Meds: Current Medications Cephalexin HCl (Keflex) 500 mg 1X ONCE PO Last administered on 07/07/17at 22:00 ; Start 07/07/17 at 22:00; Stop 07/07/17 at 22:01; Status DC Clindamycin Palmitate HCl (Cleocin Pediatric) 280 mg 1X ONCE PO ; Start at 23:45; Stop 07/07/17 at 23:46; Status UNV Acetaminophen (Tylenol) 650 mg PRN Q6HRS PRN PO PAIN / TEMP Last administered on 07/08/17at 18:38; Start 07/08/17 at 00:30 Multi-Ingredient Ointment (Analgesic [place]) 1 meme PRN QID PRN TP MUSCLE PAIN; Start 07/08/17 at 00:30 Al Hydroxide/Mg Hydroxide (Mylanta Plus Xs) 15 ml PRN AFTMEALHC PRN PO DYSPEPSIA; Start 07/08/17 at 00:30 Nicotine (Nicoderm Cq 21mg) 1 patch DAILY TD Last administered on 07/08/17 07: 47; Start 07/08/17 at 09:00 Clonazepam (KlonoPIN) 1 mg TID PO Last administered on 07/08/17 12:12; Start 07/08/17 at 09:00; Stop 07/08/17 at 19:33; Status DC Haloperidol (Haldol) 1 mg BID PO Last administered on 07/08/17 20:09; Start at 09:00 Haloperidol (Haldol) 2 mg PRN Q6HRS PRN PO AGITATION; Start 07/08/17 at 00:30 Levetiracetam (Keppra) 500 mg BID PO Last administered on 07/08/17 20:09; Start 07/08/17 at 09:00 Citalopram Hydrobromide (CeleXA) 40 mg DAILY PO Last administered on 07/08/17 07:46; Start 07/08/17 at 09:00; Stop 07/08/17 at 19:33; Status DC Aspirin (Aspirin Enteric Coated) 81 mg DAILY PO Last administered on 07/08/17 07:45; Start 07/08/17 at 09:00 Benzonatate (Tessalon Perle) 100 mg PRN TID PRN PO COUGH; Start 07/08/17 at 00: 30 Vitamin D (Vitamin D3) 1,000 unit DAILY PO Last administered on 07/08/17 07:45 ; Start 07/08/17 at 09:00 Enoxaparin Sodium (Lovenox) 40 mg DAILY SQ Last administered on 07/08/17 07:45 ; Start 07/08/17 at 09:00 Ferrous Sulfate (Feosol) 325 mg QODAY PO Last administered on 07/08/17 07:45; Start 07/08/17 at 09:00 Acetaminophen/ Hydrocodone Bitart (Lortab 5/325) 1 tab PRN Q6HRS PRN PO PAIN Last administered on 07/08/17 18:38; Start 07/08/17 at 00:30 Albuterol/ Ipratropium (Duoneb) 3 ml RTBID NEB ; Start 07/08/17 at 08:00 Lidocaine (Lidoderm) 1 patch DAILY TP Last administered on 07/08/17 07:47; Start 07/08/17 at 09:00 Lisinopril (Prinivil) 5 mg BID PO Last administered on 07/08/17at 20:10; Start 07/08/17 at 09:00 Magnesium Hydroxide (Milk Of Magnesia) 2,400 mg PRN DAILY PRN PO CONSTIPATION; Start 07/08/17 at 00:30 Magnesium Oxide (Magnesium Oxide) 400 mg DAILY PO Last administered on at 07:51; Start 07/08/17 at 09:00 Metoprolol Succinate (Toprol Xl) 25 mg DAILY PO Last administered on 07/08/17at 07:51; Start 07/08/17 at 09:00 Sodium Biphosphate/ Sodium Phosphate (Fleet Adult) 133 ml PRN 1X PRN RC CONSTIPATION; Start 07/08/17 at 00:30 Pantoprazole Sodium (Protonix) 80 mg DAILYBFRSUP PO Last administered on at 18:07; Start 07/08/17 at 17:00 Atorvastatin Calcium (Lipitor) 80 mg QHS PO Last administered on 07/08/17at 20: 13; Start 07/08/17 at 21:00 Non-Formulary Medication (Budesonide/ Formoterol Fumarate (Symbicort 160-4.5 Mcg Inhaler)) 2 puff BID IH ; Start 07/08/17 at 09:00; Status UNV Famotidine (Pepcid) 40 mg BID PO Last administered on 07/08/17at 20:09; Start at 09:00 Multivitamins/ Calcium (Thera-M Plus) 1 tab DAILY PO Last administered on at 07:45; Start 07/08/17 at 09:00 Potassium Chloride (Klor-Con) 10 meq BIDWMEALS PO Last administered on at 18:08; Start 07/08/17 at 08:00 Miscellaneous (Lidoderm Patch Removal) 1 ea QHS MC Last administered on at 20:11; Start 07/08/17 at 21:00 Clindamycin HCl (Cleocin) 300 mg 1X ONCE PO Last administered on 07/08/17at 00: 43; Start 07/08/17 at 00:45; Stop 07/08/17 at 00:46; Status DC Budesonide (Pulmicort) 0.5 mg RTBID NEB ; Start 07/08/17 at 08:00 Albuterol Sulfate (Ventolin) 2.5 mg PRN Q6HRS PRN NEB SHORTNESS OF BREATH; Start 07/08/17 at 10:00 Bupropion HCl (Wellbutrin Xl) 150 mg DAILY PO ; Start 07/09/17 at 09:00; Stop at 09:00; Status DC Bupropion HCl (Wellbutrin Xl) 300 mg DAILY PO ; Start 07/12/17 at 09:00; Stop at 09:00; Status DC Trazodone HCl (Desyrel) 50 mg PRN QHS PRN PO INSOMNIA Last administered on 07/08at 20:09; Start 07/08/17 at 19:30 Clonazepam (KlonoPIN) 0.75 mg DAILY PO ; Start 07/09/17 at 09:00 Clonazepam (KlonoPIN) 1 mg BID@1400,2100 PO Last administered on 07/08/17at 20: 09; Start 07/08/17 at 21:00 Duloxetine HCl (Cymbalta) 30 mg DAILY PO ; Start 07/09/17 at 09:00 Active Scripts Active Reported Vitamin D3 (Cholecalciferol (Vitamin D3)) 1,000 Unit Tablet 1,000 Unit PO DAILY Toprol Xl (Metoprolol Succinate) 25 Mg Tab.er.24h 25 Mg PO DAILY Tessalon Perle (Benzonatate) 100 Mg Capsule 100 Mg PO PRN TID PRN Symbicort 160-4.5 Mcg Inhaler (Budesonide/Formoterol Fumarate) 10.2 Gm Hfa.aer.ad 2 Puff IH BID Protonix (Pantoprazole Sodium) 40 Mg Tablet.dr 80 Mg PO DAILYBFRSUP Potassium Chloride 10 Meq Tablet.er 10 Meq PO BID [place] 5-325 Tablet (Hydrocodone Bit/Acetaminophen) 1 Each Tablet 1 Tab PO PRN Q6HRS PRN NICODERM CQ 21mg (Nicotine) 1 Each Patch.td24 1 Patch TD DAILY Rpnoq-Bkbrwlj-Ckczmvgj Tablet (Multivit-Min/Iron Fum/Folic AC) 1 Each Tablet 1 Tab PO DAILY Milk Of Magnesia (Magnesium Hydroxide) 400 Mg/5 Ml Oral.susp 2,400 Mg PO PRN DAILY PRN Magnesium Oxide 400 Mg Tablet 400 Mg PO DAILY Lisinopril 5 Mg Tablet 5 Mg PO BID Lidocaine 1 Each Adh..patch 1 Patch TP DAILY Keppra (Levetiracetam) 500 Mg Tablet 500 Mg PO BID Duoneb 0.5-3(2.5) Mg/3 Ml (Albuterol/Ipratropium) 3 Ml Ampul.neb 3 Ml NEB BID Haloperidol 2 Mg Tablet 1 Mg PO BID Haloperidol 2 Mg Tablet 2 Mg PO PRN Q6HRS PRN Fleet Enema (Na Phos,M-B/Na Phos,Di-Ba) 133 Ml Enema 133 Ml RC PRN 1X PRN Ferrous Sulfate 325 Mg Tablet 325 Mg PO QODAY Famotidine 40 Mg Tablet 40 Mg PO BID Escitalopram Oxalate 20 Mg Tablet 20 Mg PO DAILY Lovenox (Enoxaparin Sodium) 40 Mg/0.4 Ml Disp.syrin 40 Mg SQ DAILY Clonazepam 1 Mg Tablet 1 Mg PO TID Atorvastatin Calcium 80 Mg Tablet 80 Mg PO QHS Aspir-Low (Aspirin) 81 Mg Tablet.dr 81 Mg PO DAILY Tylenol (Acetaminophen) 325 Mg Tablet 650 Mg PO PRN Q24HRS PRN I have reviewed the current psychotropics carefully including drug interactions. Risk benefit ratio favors no change other than as noted in my dictated progress note. Diagnosis: Problems: (1) Depression (2) Malnutrition (3) Anxiety disorder (4) Major depressive disorder, recurrent episode (5) Mild cognitive disorder CELESTINE RAY MD Jul 08, 2017 22:26
[2017-07-09] MEDS: ACETAMINOPHEN 325 MG TABLET PO PRN (00:25)
[2017-07-09] MEDS: HYDROcodone/APAP 5/325MG 1 TAB TABLET PO PRN ×2 (00:25→12:46)
[2017-07-09 06:07] VITALS: BP 94/41
[2017-07-09] MEDS: FAMOTIDINE 20 MG TABLET PO SCH ×2 (07:50→19:24)
[2017-07-09] MEDS: NICOTINE 21MG PATCH. TD SCH (07:50)
[2017-07-09] MEDS: levETIRAcetam 500 MG TABLET PO SCH ×2 (07:50→19:25)
[2017-07-09] MEDS: HALOPERIDOL 2 MG TABLET PO SCH ×2 (07:51→19:25)
[2017-07-09] MEDS: POTASSIUM CHLORIDE 10 MEQ TABLET.ER. PO SCH ×2 (07:51→16:50)
[2017-07-09] MEDS: MAGNESIUM OXIDE 400 MG TABLET PO SCH (07:51)
[2017-07-09] MEDS: CHOLECALCIFEROL (VITAMIN D3) 1,000 UNIT TABLET PO SCH (07:51)
[2017-07-09] MEDS: MULTIVITAMIN with MINERAL TABLET. PO SCH (07:51)
[2017-07-09] MEDS: LIDOCAINE (700MG/PATCH) PATCH. TP SCH (07:52)
[2017-07-09] MEDS: ASPIRIN ENTERIC COATED 81 MG TABLET.DR. PO SCH (07:52)
[2017-07-09] MEDS: METOPROLOL SUCC 24HR ER 25 MG TAB.ER.24H. PO SCH (07:52)
[2017-07-09] MEDS: ENOXAPARIN 40 MG/0.4 ML DISP.SYRIN. SQ SCH (07:52)
[2017-07-09] MEDS: LISINOPRIL 5 MG TABLET. PO SCH ×2 (07:53→19:26)
[2017-07-09] MEDS: clonazePAM 0.5 MG TABLET PO SCH (07:55)
[2017-07-09] MEDS: DULoxetine HCL 30 MG CAPSULE.DR PO SCH (07:55)
[2017-07-09] MEDS ORDERED: buPROPion XL 150 MG TAB.ER.24H PO SCH (09:00)
[2017-07-09] MEDS: BUDESONIDE 0.5 MG/2 ML NEBU NEB SCH ×2 (10:50→19:57)
[2017-07-09] MEDS: IPRATRPIUM/ALBUTEROL 0.5/2.5MG 3 ML NEBU. NEB SCH ×2 (10:50→19:57)
[2017-07-09] MEDS: clonazePAM 1 MG TABLET PO SCH ×2 (12:46→19:25)
[2017-07-09 15:38] VITALS: BP 109/46
[2017-07-09] MEDS ORDERED: traZODone 100 MG TABLET. PO PRN (16:30)
[2017-07-09] MEDS: PANTOPRAZOLE 40 MG TABLET. PO SCH (16:49)
[2017-07-09] MEDS: HYDROcodone/APAP 5/325MG 1 TAB TABLET PO SCH ×2 (16:50→23:30)
[2017-07-09] MEDS: ATORVASTATIN CALCIUM 20 MG TABLET PO SCH (19:24)
[2017-07-09] MEDS: PATCH REMOVAL. MC SCH (19:28)
--- NOTE | 2017-07-09 20:48 | PDOC ---
Exam Note: Avery Note: Please also refer to the separate dictated note~for this date of service dictated separately.~Patient seen individually. Discussed the patient with Nursing staff reviewed the chart.~Reviewed interim history and current functioning. Reviewed vital signs,~Labs/ Radiology~and current medications noted below. Continue current treatment with the changes noted in the dictated addendum note Assessment: Vital Signs: Vital Signs Date Time Temp Pulse Resp B/P (MAP) Pulse Ox O2 Delivery O2 Flow Rate FiO2 07/09/17 20:03 Room Air 07/09/17 20:00 98 07/09/17 19:26 90 109/46 07/09/17 17:50 18 07/09/17 15:38 98.0 I&O Intake and Output 07/09/17 07:00 Intake Total 810 ml Balance 810 ml Intake Oral 810 ml Current Medications: Meds: Current Medications Cephalexin HCl (Keflex) 500 mg 1X ONCE PO Last administered on 07/07/17at 22:00 ; Start 07/07/17 at 22:00; Stop 07/07/17 at 22:01; Status DC Clindamycin Palmitate HCl (Cleocin Pediatric) 280 mg 1X ONCE PO ; Start at 23:45; Stop 07/07/17 at 23:46; Status UNV Acetaminophen (Tylenol) 650 mg PRN Q6HRS PRN PO PAIN / TEMP Last administered on 07/09/17at 00:25; Start 07/08/17 at 00:30 Multi-Ingredient Ointment (Analgesic [place]) 1 meme PRN QID PRN TP MUSCLE PAIN; Start 07/08/17 at 00:30 Al Hydroxide/Mg Hydroxide (Mylanta Plus Xs) 15 ml PRN AFTMEALHC PRN PO DYSPEPSIA; Start 07/08/17 at 00:30 Nicotine (Nicoderm Cq 21mg) 1 patch DAILY TD Last administered on 07/09/17at 07: 50; Start 07/08/17 at 09:00 Clonazepam (KlonoPIN) 1 mg TID PO Last administered on 07/08/17at 12:12; Start 07/08/17 at 09:00; Stop 07/08/17 at 19:33; Status DC Haloperidol (Haldol) 1 mg BID PO Last administered on 07/09/17at 19:25; Start at 09:00 Haloperidol (Haldol) 2 mg PRN Q6HRS PRN PO AGITATION; Start 07/08/17 at 00:30; Stop 07/09/17 at 16:30; Status DC Levetiracetam (Keppra) 500 mg BID PO Last administered on 07/09/17 19:25; Start 07/08/17 at 09:00 Citalopram Hydrobromide (CeleXA) 40 mg DAILY PO Last administered on 07/08/17 07:46; Start 07/08/17 at 09:00; Stop 07/08/17 at 19:33; Status DC Aspirin (Aspirin Enteric Coated) 81 mg DAILY PO Last administered on 07/09/17 07:52; Start 07/08/17 at 09:00 Benzonatate (Tessalon Perle) 100 mg PRN TID PRN PO COUGH; Start 07/08/17 at 00: 30 Vitamin D (Vitamin D3) 1,000 unit DAILY PO Last administered on 07/09/17 07:51 ; Start 07/08/17 at 09:00 Enoxaparin Sodium (Lovenox) 40 mg DAILY SQ Last administered on 07/09/17 07:52 ; Start 07/08/17 at 09:00 Ferrous Sulfate (Feosol) 325 mg QODAY PO Last administered on 07/08/17 07:45; Start 07/08/17 at 09:00 Acetaminophen/ Hydrocodone Bitart (Lortab 5/325) 1 tab PRN Q6HRS PRN PO PAIN Last administered on 07/09/17 12:46; Start 07/08/17 at 00:30; Stop 07/09/17 at 15:24; Status DC Albuterol/ Ipratropium (Duoneb) 3 ml RTBID NEB Last administered on 07/09/17 19:57; Start 07/08/17 at 08:00 Lidocaine (Lidoderm) 1 patch DAILY TP Last administered on 07/09/17 07:52; Start 07/08/17 at 09:00 Lisinopril (Prinivil) 5 mg BID PO Last administered on 07/09/17 19:26; Start 07/08/17 at 09:00 Magnesium Hydroxide (Milk Of Magnesia) 2,400 mg PRN DAILY PRN PO CONSTIPATION; Start 07/08/17 at 00:30 Magnesium Oxide (Magnesium Oxide) 400 mg DAILY PO Last administered on 07:51; Start 07/08/17 at 09:00 Metoprolol Succinate (Toprol Xl) 25 mg DAILY PO Last administered on 07/08/17at 07:51; Start 07/08/17 at 09:00 Sodium Biphosphate/ Sodium Phosphate (Fleet Adult) 133 ml PRN 1X PRN RC CONSTIPATION; Start 07/08/17 at 00:30 Pantoprazole Sodium (Protonix) 80 mg DAILYBFRSUP PO Last administered on at 16:49; Start 07/08/17 at 17:00 Atorvastatin Calcium (Lipitor) 80 mg QHS PO Last administered on 07/09/17 19: 24; Start 07/08/17 at 21:00 Non-Formulary Medication (Budesonide/ Formoterol Fumarate (Symbicort 160-4.5 Mcg Inhaler)) 2 puff BID IH ; Start 07/08/17 at 09:00; Status UNV Famotidine (Pepcid) 40 mg BID PO Last administered on 07/09/17 19:24; Start at 09:00 Multivitamins/ Calcium (Thera-M Plus) 1 tab DAILY PO Last administered on 07:51; Start 07/08/17 at 09:00 Potassium Chloride (Klor-Con) 10 meq BIDWMEALS PO Last administered on at 16:50; Start 07/08/17 at 08:00 Miscellaneous (Lidoderm Patch Removal) 1 ea QHS MC Last administered on 19:28; Start 07/08/17 at 21:00 Clindamycin HCl (Cleocin) 300 mg 1X ONCE PO Last administered on 07/08/17at 00: 43; Start 07/08/17 at 00:45; Stop 07/08/17 at 00:46; Status DC Budesonide (Pulmicort) 0.5 mg RTBID NEB Last administered on 07/09/17at 19:57; Start 07/08/17 at 08:00 Albuterol Sulfate (Ventolin) 2.5 mg PRN Q6HRS PRN NEB SHORTNESS OF BREATH; Start 07/08/17 at 10:00 Bupropion HCl (Wellbutrin Xl) 150 mg DAILY PO ; Start 07/09/17 at 09:00; Stop at 09:00; Status DC Bupropion HCl (Wellbutrin Xl) 300 mg DAILY PO ; Start 07/12/17 at 09:00; Stop at 09:00; Status DC Trazodone HCl (Desyrel) 50 mg PRN QHS PRN PO INSOMNIA Last administered on 07/08at 20:09; Start 07/08/17 at 19:30; Stop 07/09/17 at 16:30; Status DC Clonazepam (KlonoPIN) 0.75 mg DAILY PO Last administered on 07/09/17at 07:55; Start 07/09/17 at 09:00 Clonazepam (KlonoPIN) 1 mg BID@1400,2100 PO Last administered on 07/09/17at 19: 25; Start 07/08/17 at 21:00 Duloxetine HCl (Cymbalta) 30 mg DAILY PO Last administered on 07/09/17at 07:55; Start 07/09/17 at 09:00 Acetaminophen/ Hydrocodone Bitart (Lortab 5/325) 1 tab Q6H PO Last administered on 07/09/17at 16:50; Start 07/09/17 at 16:00 Trazodone HCl (Desyrel) 100 mg PRN QHS PRN PO INSOMNIA; Start 07/09/17 at 16:30 Aripiprazole (Abilify) 5 mg DAILY PO ; Start 07/10/17 at 09:00 Active Scripts Active Reported Vitamin D3 (Cholecalciferol (Vitamin D3)) 1,000 Unit Tablet 1,000 Unit PO DAILY Toprol Xl (Metoprolol Succinate) 25 Mg Tab.er.24h 25 Mg PO DAILY Tessalon Perle (Benzonatate) 100 Mg Capsule 100 Mg PO PRN TID PRN Symbicort 160-4.5 Mcg Inhaler (Budesonide/Formoterol Fumarate) 10.2 Gm Hfa.aer.ad 2 Puff IH BID Protonix (Pantoprazole Sodium) 40 Mg Tablet.dr 80 Mg PO DAILYBFRSUP Potassium Chloride 10 Meq Tablet.er 10 Meq PO BID [place] 5-325 Tablet (Hydrocodone Bit/Acetaminophen) 1 Each Tablet 1 Tab PO PRN Q6HRS PRN NICODERM CQ 21mg (Nicotine) 1 Each Patch.td24 1 Patch TD DAILY Rsawx-Skhnssi-Oynmwvdl Tablet (Multivit-Min/Iron Fum/Folic AC) 1 Each Tablet 1 Tab PO DAILY Milk Of Magnesia (Magnesium Hydroxide) 400 Mg/5 Ml Oral.susp 2,400 Mg PO PRN DAILY PRN Magnesium Oxide 400 Mg Tablet 400 Mg PO DAILY Lisinopril 5 Mg Tablet 5 Mg PO BID Lidocaine 1 Each Adh..patch 1 Patch TP DAILY Keppra (Levetiracetam) 500 Mg Tablet 500 Mg PO BID Duoneb 0.5-3(2.5) Mg/3 Ml (Albuterol/Ipratropium) 3 Ml Ampul.neb 3 Ml NEB BID Haloperidol 2 Mg Tablet 1 Mg PO BID Haloperidol 2 Mg Tablet 2 Mg PO PRN Q6HRS PRN Fleet Enema (Na Phos,M-B/Na Phos,Di-Ba) 133 Ml Enema 133 Ml RC PRN 1X PRN Ferrous Sulfate 325 Mg Tablet 325 Mg PO QODAY Famotidine 40 Mg Tablet 40 Mg PO BID Escitalopram Oxalate 20 Mg Tablet 20 Mg PO DAILY Lovenox (Enoxaparin Sodium) 40 Mg/0.4 Ml Disp.syrin 40 Mg SQ DAILY Clonazepam 1 Mg Tablet 1 Mg PO TID Atorvastatin Calcium 80 Mg Tablet 80 Mg PO QHS Aspir-Low (Aspirin) 81 Mg Tablet. 81 Mg PO DAILY Tylenol (Acetaminophen) 325 Mg Tablet 650 Mg PO PRN Q24HRS PRN I have reviewed the current psychotropics carefully including drug interactions. Risk benefit ratio favors no change other than as noted in my dictated progress note. Diagnosis: Problems: (1) Depression (2) Malnutrition (3) Anxiety disorder (4) Major depressive disorder, recurrent episode (5) Mild cognitive disorder CELESTINE RAY MD Jul 09, 2017 20:48
[2017-07-09 22:09] LABS: HEMOGLOBIN A1C 5.6 % (4.8-5.6)
[2017-07-10] MEDS: HYDROcodone/APAP 5/325MG 1 TAB TABLET PO SCH ×4 (02:02→19:33)
[2017-07-10 06:25] VITALS: BP 107/70
[2017-07-10] MEDS: ENOXAPARIN 40 MG/0.4 ML DISP.SYRIN. SQ SCH (07:16)
[2017-07-10] MEDS: NICOTINE 21MG PATCH. TD SCH (07:16)
[2017-07-10] MEDS: MULTIVITAMIN with MINERAL TABLET. PO SCH (07:17)
[2017-07-10] MEDS: LIDOCAINE (700MG/PATCH) PATCH. TP SCH (07:17)
[2017-07-10] MEDS: MAGNESIUM OXIDE 400 MG TABLET PO SCH (07:17)
[2017-07-10] MEDS: ASPIRIN ENTERIC COATED 81 MG TABLET.DR. PO SCH (07:17)
[2017-07-10] MEDS: POTASSIUM CHLORIDE 10 MEQ TABLET.ER. PO SCH ×2 (07:18→17:07)
[2017-07-10] MEDS: FERROUS SULFATE 325 MG TABLET. PO SCH (07:18)
[2017-07-10] MEDS: DULoxetine HCL 30 MG CAPSULE.DR PO SCH (07:18)
[2017-07-10] MEDS: HALOPERIDOL 2 MG TABLET PO SCH ×2 (07:18→19:29)
[2017-07-10] MEDS: LISINOPRIL 5 MG TABLET. PO SCH ×2 (07:19→19:28)
[2017-07-10] MEDS: levETIRAcetam 500 MG TABLET PO SCH ×2 (07:19→19:29)
[2017-07-10] MEDS: CHOLECALCIFEROL (VITAMIN D3) 1,000 UNIT TABLET PO SCH (07:19)
[2017-07-10] MEDS: METOPROLOL SUCC 24HR ER 25 MG TAB.ER.24H. PO SCH (07:19)
[2017-07-10] MEDS: FAMOTIDINE 20 MG TABLET PO SCH ×2 (07:20→19:28)
[2017-07-10] MEDS: clonazePAM 0.5 MG TABLET PO SCH (07:25)
[2017-07-10] MEDS: ARIPiprazole 5 MG TABLET PO SCH (07:33)
[2017-07-10] MEDS: BUDESONIDE 0.5 MG/2 ML NEBU NEB SCH ×2 (10:53→19:57)
[2017-07-10] MEDS: IPRATRPIUM/ALBUTEROL 0.5/2.5MG 3 ML NEBU. NEB SCH ×2 (10:53→19:57)
[2017-07-10] MEDS: clonazePAM 1 MG TABLET PO SCH ×2 (14:41→19:35)
[2017-07-10 16:15] VITALS: BP 107/63
[2017-07-10] MEDS: PANTOPRAZOLE 40 MG TABLET. PO SCH (17:08)
[2017-07-10] MEDS: PATCH REMOVAL. MC SCH (19:29)
[2017-07-10] MEDS: ATORVASTATIN CALCIUM 20 MG TABLET PO SCH (19:29)
[2017-07-10] MEDS: LACTOBACILLUS RHAMNOSUS GG 1 CAPSULE. PO SCH (19:33)
[2017-07-10] MEDS: DOXYCYCLINE HYCLATE 100 MG TABLET PO SCH (19:33)
--- NOTE | 2017-07-10 20:44 | PDOC ---
Exam Note: Avery Note: Please also refer to the separate dictated note~for this date of service dictated separately.~Patient seen individually. Discussed the patient with Nursing staff reviewed the chart.~Reviewed interim history and current functioning. Reviewed vital signs,~Labs/ Radiology~and current medications noted below. Continue current treatment with the changes noted in the dictated addendum note Assessment: Vital Signs: Vital Signs Date Time Temp Pulse Resp B/P (MAP) Pulse Ox O2 Delivery O2 Flow Rate FiO2 07/10/17 20:04 96 Room Air 07/10/17 19:33 18 07/10/17 19:28 93 107/63 07/10/17 16:15 97.6 I&O Intake and Output 07/10/17 07:00 Intake Total 540 ml Balance 540 ml Intake Oral 540 ml # Voids 1 Current Medications: Meds: Current Medications Cephalexin HCl (Keflex) 500 mg 1X ONCE PO Last administered on 07/07/17at 22:00 ; Start 07/07/17 at 22:00; Stop 07/07/17 at 22:01; Status DC Clindamycin Palmitate HCl (Cleocin Pediatric) 280 mg 1X ONCE PO ; Start at 23:45; Stop 07/07/17 at 23:46; Status UNV Acetaminophen (Tylenol) 650 mg PRN Q6HRS PRN PO PAIN / TEMP Last administered on 07/09/17at 00:25; Start 07/08/17 at 00:30 Multi-Ingredient Ointment (Analgesic [place]) 1 meme PRN QID PRN TP MUSCLE PAIN; Start 07/08/17 at 00:30 Al Hydroxide/Mg Hydroxide (Mylanta Plus Xs) 15 ml PRN AFTMEALHC PRN PO DYSPEPSIA; Start 07/08/17 at 00:30 Nicotine (Nicoderm Cq 21mg) 1 patch DAILY TD Last administered on 07/10/17at 07: 16; Start 07/08/17 at 09:00 Clonazepam (KlonoPIN) 1 mg TID PO Last administered on 07/08/17at 12:12; Start 07/08/17 at 09:00; Stop 07/08/17 at 19:33; Status DC Haloperidol (Haldol) 1 mg BID PO Last administered on 07/10/17at 19:29; Start at 09:00 Haloperidol (Haldol) 2 mg PRN Q6HRS PRN PO AGITATION; Start 07/08/17 at 00:30; Stop 07/09/17 at 16:30; Status DC Levetiracetam (Keppra) 500 mg BID PO Last administered on 07/10/17 19:29; Start 07/08/17 at 09:00 Citalopram Hydrobromide (CeleXA) 40 mg DAILY PO Last administered on 07/08/17 07:46; Start 07/08/17 at 09:00; Stop 07/08/17 at 19:33; Status DC Aspirin (Aspirin Enteric Coated) 81 mg DAILY PO Last administered on 07/10/17 07:17; Start 07/08/17 at 09:00 Benzonatate (Tessalon Perle) 100 mg PRN TID PRN PO COUGH; Start 07/08/17 at 00: 30 Vitamin D (Vitamin D3) 1,000 unit DAILY PO Last administered on 07/10/17 07:19 ; Start 07/08/17 at 09:00 Enoxaparin Sodium (Lovenox) 40 mg DAILY SQ Last administered on 07/10/17 07:16 ; Start 07/08/17 at 09:00 Ferrous Sulfate (Feosol) 325 mg QODAY PO Last administered on 07/10/17 07:18; Start 07/08/17 at 09:00 Acetaminophen/ Hydrocodone Bitart (Lortab 5/325) 1 tab PRN Q6HRS PRN PO PAIN Last administered on 07/09/17at 12:46; Start 07/08/17 at 00:30; Stop 07/09/17 at 15:24; Status DC Albuterol/ Ipratropium (Duoneb) 3 ml RTBID NEB Last administered on 07/10/17 19:57; Start 07/08/17 at 08:00 Lidocaine (Lidoderm) 1 patch DAILY TP Last administered on 07/10/17 07:17; Start 07/08/17 at 09:00 Lisinopril (Prinivil) 5 mg BID PO Last administered on 07/10/17 19:28; Start 07/08/17 at 09:00 Magnesium Hydroxide (Milk Of Magnesia) 2,400 mg PRN DAILY PRN PO CONSTIPATION; Start 07/08/17 at 00:30 Magnesium Oxide (Magnesium Oxide) 400 mg DAILY PO Last administered on 07:17; Start 07/08/17 at 09:00 Metoprolol Succinate (Toprol Xl) 25 mg DAILY PO Last administered on 07/10/17 07:19; Start 07/08/17 at 09:00 Sodium Biphosphate/ Sodium Phosphate (Fleet Adult) 133 ml PRN 1X PRN RC CONSTIPATION; Start 07/08/17 at 00:30 Pantoprazole Sodium (Protonix) 80 mg DAILYBFRSUP PO Last administered on 17:08; Start 07/08/17 at 17:00 Atorvastatin Calcium (Lipitor) 80 mg QHS PO Last administered on 07/10/17 19: 29; Start 07/08/17 at 21:00 Non-Formulary Medication (Budesonide/ Formoterol Fumarate (Symbicort 160-4.5 Mcg Inhaler)) 2 puff BID IH ; Start 07/08/17 at 09:00; Status UNV Famotidine (Pepcid) 40 mg BID PO Last administered on 07/10/17 19:28; Start at 09:00 Multivitamins/ Calcium (Thera-M Plus) 1 tab DAILY PO Last administered on 07:17; Start 07/08/17 at 09:00 Potassium Chloride (Klor-Con) 10 meq BIDWMEALS PO Last administered on 17:07; Start 07/08/17 at 08:00 Miscellaneous (Lidoderm Patch Removal) 1 ea QHS MC Last administered on 19:29; Start 07/08/17 at 21:00 Clindamycin HCl (Cleocin) 300 mg 1X ONCE PO Last administered on 07/08/17 00: 43; Start 07/08/17 at 00:45; Stop 07/08/17 at 00:46; Status DC Budesonide (Pulmicort) 0.5 mg RTBID NEB Last administered on 07/10/17 19:57; Start 07/08/17 at 08:00 Albuterol Sulfate (Ventolin) 2.5 mg PRN Q6HRS PRN NEB SHORTNESS OF BREATH; Start 07/08/17 at 10:00 Bupropion HCl (Wellbutrin Xl) 150 mg DAILY PO ; Start 07/09/17 at 09:00; Stop at 09:00; Status DC Bupropion HCl (Wellbutrin Xl) 300 mg DAILY PO ; Start 07/12/17 at 09:00; Stop at 09:00; Status DC Trazodone HCl (Desyrel) 50 mg PRN QHS PRN PO INSOMNIA Last administered on 07/08at 20:09; Start 07/08/17 at 19:30; Stop 07/09/17 at 16:30; Status DC Clonazepam (KlonoPIN) 0.75 mg DAILY PO Last administered on 07/10/17at 07:25; Start 07/09/17 at 09:00 Clonazepam (KlonoPIN) 1 mg BID@1400,2100 PO Last administered on 07/10/17at 19: 35; Start 07/08/17 at 21:00 Duloxetine HCl (Cymbalta) 30 mg DAILY PO Last administered on 07/10/17at 07:18; Start 07/09/17 at 09:00 Acetaminophen/ Hydrocodone Bitart (Lortab 5/325) 1 tab Q6H PO Last administered on 07/10/17 19:33; Start 07/09/17 at 16:00 Trazodone HCl (Desyrel) 100 mg PRN QHS PRN PO INSOMNIA; Start 07/09/17 at 16:30 Aripiprazole (Abilify) 5 mg DAILY PO Last administered on 07/10/17at 07:33; Start 07/10/17 at 09:00 Doxycycline Hyclate (Vibra-Tab) 100 mg BID PO Last administered on 07/10/17 19 :33; Start 07/10/17 at 21:00; Stop 07/17/17 at 20:59 Lactobacillus Rhamnosus (Culturelle) 1 cap BID PO Last administered on 19:33; Start 07/10/17 at 21:00 Active Scripts Active Reported Vitamin D3 (Cholecalciferol (Vitamin D3)) 1,000 Unit Tablet 1,000 Unit PO DAILY Toprol Xl (Metoprolol Succinate) 25 Mg Tab.er.24h 25 Mg PO DAILY Tessalon Perle (Benzonatate) 100 Mg Capsule 100 Mg PO PRN TID PRN Symbicort 160-4.5 Mcg Inhaler (Budesonide/Formoterol Fumarate) 10.2 Gm Hfa.aer.ad 2 Puff IH BID Protonix (Pantoprazole Sodium) 40 Mg Tablet. 80 Mg PO DAILYBFRSUP Potassium Chloride 10 Meq Tablet.er 10 Meq PO BID [place] 5-325 Tablet (Hydrocodone Bit/Acetaminophen) 1 Each Tablet 1 Tab PO PRN Q6HRS PRN NICODERM CQ 21mg (Nicotine) 1 Each Patch.td24 1 Patch TD DAILY Tljuj-Vlbmtmk-Ztmcaliv Tablet (Multivit-Min/Iron Fum/Folic AC) 1 Each Tablet 1 Tab PO DAILY Milk Of Magnesia (Magnesium Hydroxide) 400 Mg/5 Ml Oral.susp 2,400 Mg PO PRN DAILY PRN Magnesium Oxide 400 Mg Tablet 400 Mg PO DAILY Lisinopril 5 Mg Tablet 5 Mg PO BID Lidocaine 1 Each Adh..patch 1 Patch TP DAILY Keppra (Levetiracetam) 500 Mg Tablet 500 Mg PO BID Duoneb 0.5-3(2.5) Mg/3 Ml (Albuterol/Ipratropium) 3 Ml Ampul.neb 3 Ml NEB BID Haloperidol 2 Mg Tablet 1 Mg PO BID Haloperidol 2 Mg Tablet 2 Mg PO PRN Q6HRS PRN Fleet Enema (Na Phos,M-B/Na Phos,Di-Ba) 133 Ml Enema 133 Ml RC PRN 1X PRN Ferrous Sulfate 325 Mg Tablet 325 Mg PO QODAY Famotidine 40 Mg Tablet 40 Mg PO BID Escitalopram Oxalate 20 Mg Tablet 20 Mg PO DAILY Lovenox (Enoxaparin Sodium) 40 Mg/0.4 Ml Disp.syrin 40 Mg SQ DAILY Clonazepam 1 Mg Tablet 1 Mg PO TID Atorvastatin Calcium 80 Mg Tablet 80 Mg PO QHS Aspir-Low (Aspirin) 81 Mg Tablet. 81 Mg PO DAILY Tylenol (Acetaminophen) 325 Mg Tablet 650 Mg PO PRN Q24HRS PRN I have reviewed the current psychotropics carefully including drug interactions. Risk benefit ratio favors no change other than as noted in my dictated progress note. Diagnosis: Problems: (1) Depression (2) Malnutrition (3) Anxiety disorder (4) Major depressive disorder, recurrent episode (5) Mild cognitive disorder CELESTINE RAY MD Jul 10, 2017 20:44
--- NOTE | 2017-07-11 00:53 | PN ---
DATE: 07/09/2017 This is a late entry for 07/09/2017 and covers elements not covered in my initial note of 07/09/2017. I met with the patient in the afternoon. 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 The patient has been withdrawn, isolative. I wanted to start her on Wellbutrin, but she stated she had an adverse reaction to it and we started Cymbalta instead. She is constantly wanting pain medication and Cymbalta should help with this as well, slept 5-3/4 hours previous evening, met with her in her room. No CV, , pulmonary, eye system symptoms on review. MENTAL STATUS EXAM: Reasonably oriented. Speech coherent, has some latency, low in volume. Abstraction fair, computation impaired, language function intact, attention span short. Mood and affect withdrawn. LABORATORY DATA: Reviewed. IMPRESSION: Major depressive disorder with psychotic features. PLAN: Start trazodone 100 mg at bedtime p.r.n., july repeat x 1 for insomnia. Change Haldol to Abilify 5 mg a day to augment the Cymbalta. Adjust further as clinically indicated. MAN Karthikeyan RAY MD DR: ROSA/mikey JOB#: [id number] / [id number]
[2017-07-11] MEDS: HYDROcodone/APAP 5/325MG 1 TAB TABLET PO SCH ×4 (03:08→22:00)
[2017-07-11 06:20] VITALS: BP 106/66
[2017-07-11] MEDS: LISINOPRIL 5 MG TABLET. PO SCH ×2 (09:00→19:16)
[2017-07-11] MEDS: LIDOCAINE (700MG/PATCH) PATCH. TP SCH (09:16)
[2017-07-11] MEDS: ENOXAPARIN 40 MG/0.4 ML DISP.SYRIN. SQ SCH (09:17)
[2017-07-11] MEDS: MAGNESIUM OXIDE 400 MG TABLET PO SCH (09:18)
[2017-07-11] MEDS: ARIPiprazole 5 MG TABLET PO SCH (09:18)
[2017-07-11] MEDS: LACTOBACILLUS RHAMNOSUS GG 1 CAPSULE. PO SCH ×2 (09:18→19:05)
[2017-07-11] MEDS: clonazePAM 0.5 MG TABLET PO SCH (09:18)
[2017-07-11] MEDS: DOXYCYCLINE HYCLATE 100 MG TABLET PO SCH ×2 (09:19→19:07)
[2017-07-11] MEDS: POTASSIUM CHLORIDE 10 MEQ TABLET.ER. PO SCH ×2 (09:19→16:36)
[2017-07-11] MEDS: DULoxetine HCL 30 MG CAPSULE.DR PO SCH (09:19)
[2017-07-11] MEDS: CHOLECALCIFEROL (VITAMIN D3) 1,000 UNIT TABLET PO SCH (09:19)
[2017-07-11] MEDS: ASPIRIN ENTERIC COATED 81 MG TABLET.DR. PO SCH (09:19)
[2017-07-11] MEDS: MULTIVITAMIN with MINERAL TABLET. PO SCH (09:19)
[2017-07-11] MEDS: levETIRAcetam 500 MG TABLET PO SCH ×2 (09:19→19:07)
[2017-07-11] MEDS: FAMOTIDINE 20 MG TABLET PO SCH ×2 (09:20→19:05)
[2017-07-11] MEDS: METOPROLOL SUCC 24HR ER 25 MG TAB.ER.24H. PO SCH (09:20)
[2017-07-11] MEDS: NICOTINE 21MG PATCH. TD SCH (09:22)
[2017-07-11] MEDS: BUDESONIDE 0.5 MG/2 ML NEBU NEB SCH ×2 (10:28→22:01)
[2017-07-11] MEDS: IPRATRPIUM/ALBUTEROL 0.5/2.5MG 3 ML NEBU. NEB SCH ×2 (10:28→22:01)
[2017-07-11] MEDS: clonazePAM 1 MG TABLET PO SCH ×2 (14:07→19:09)
[2017-07-11] MEDS: PANTOPRAZOLE 40 MG TABLET. PO SCH (16:36)
[2017-07-11] MEDS: ATORVASTATIN CALCIUM 20 MG TABLET PO SCH (19:07)
--- NOTE | 2017-07-11 20:42 | PDOC ---
Exam Note: Avery Note: Please also refer to the separate dictated note~for this date of service dictated separately.~Patient seen individually. Discussed the patient with Nursing staff reviewed the chart.~Reviewed interim history and current functioning. Reviewed vital signs,~Labs/ Radiology~and current medications noted below. Continue current treatment with the changes noted in the dictated addendum note Assessment: Vital Signs: Vital Signs Date Time Temp Pulse Resp B/P (MAP) Pulse Ox O2 Delivery O2 Flow Rate FiO2 07/11/17 19:16 84 115/48 07/11/17 17:21 16 95 07/11/17 10:31 Room Air 07/11/17 06:20 97.3 I&O Intake and Output 07/11/17 07:00 Intake Total 120 ml Balance 120 ml Intake Oral 120 ml # Voids 1 Current Medications: Meds: Current Medications Cephalexin HCl (Keflex) 500 mg 1X ONCE PO Last administered on 07/07/17at 22:00 ; Start 07/07/17 at 22:00; Stop 07/07/17 at 22:01; Status DC Clindamycin Palmitate HCl (Cleocin Pediatric) 280 mg 1X ONCE PO ; Start at 23:45; Stop 07/07/17 at 23:46; Status UNV Acetaminophen (Tylenol) 650 mg PRN Q6HRS PRN PO PAIN / TEMP Last administered on 07/09/17at 00:25; Start 07/08/17 at 00:30 Multi-Ingredient Ointment (Analgesic [place]) 1 meme PRN QID PRN TP MUSCLE PAIN; Start 07/08/17 at 00:30 Al Hydroxide/Mg Hydroxide (Mylanta Plus Xs) 15 ml PRN AFTMEALHC PRN PO DYSPEPSIA; Start 07/08/17 at 00:30 Nicotine (Nicoderm Cq 21mg) 1 patch DAILY TD Last administered on 07/11/17at 09: 22; Start 07/08/17 at 09:00 Clonazepam (KlonoPIN) 1 mg TID PO Last administered on 07/08/17at 12:12; Start 07/08/17 at 09:00; Stop 07/08/17 at 19:33; Status DC Haloperidol (Haldol) 1 mg BID PO Last administered on 07/10/17at 19:29; Start at 09:00; Stop 07/11/17 at 05:30; Status DC Haloperidol (Haldol) 2 mg PRN Q6HRS PRN PO AGITATION; Start 07/08/17 at 00:30; Stop 07/09/17 at 16:30; Status DC Levetiracetam (Keppra) 500 mg BID PO Last administered on 07/11/17 19:07; Start 07/08/17 at 09:00 Citalopram Hydrobromide (CeleXA) 40 mg DAILY PO Last administered on 07/08/17at 07:46; Start 07/08/17 at 09:00; Stop 07/08/17 at 19:33; Status DC Aspirin (Aspirin Enteric Coated) 81 mg DAILY PO Last administered on 07/11/17 09:19; Start 07/08/17 at 09:00 Benzonatate (Tessalon Perle) 100 mg PRN TID PRN PO COUGH; Start 07/08/17 at 00: 30 Vitamin D (Vitamin D3) 1,000 unit DAILY PO Last administered on 07/11/17 09:19 ; Start 07/08/17 at 09:00 Enoxaparin Sodium (Lovenox) 40 mg DAILY SQ Last administered on 07/11/17 09:17 ; Start 07/08/17 at 09:00 Ferrous Sulfate (Feosol) 325 mg QODAY PO Last administered on 07/10/17 07:18; Start 07/08/17 at 09:00 Acetaminophen/ Hydrocodone Bitart (Lortab 5/325) 1 tab PRN Q6HRS PRN PO PAIN Last administered on 07/09/17at 12:46; Start 07/08/17 at 00:30; Stop 07/09/17 at 15:24; Status DC Albuterol/ Ipratropium (Duoneb) 3 ml RTBID NEB Last administered on 07/11/17 10:28; Start 07/08/17 at 08:00 Lidocaine (Lidoderm) 1 patch DAILY TP Last administered on 07/11/17 09:16; Start 07/08/17 at 09:00 Lisinopril (Prinivil) 5 mg BID PO Last administered on 07/11/17 19:16; Start 07/08/17 at 09:00 Magnesium Hydroxide (Milk Of Magnesia) 2,400 mg PRN DAILY PRN PO CONSTIPATION; Start 07/08/17 at 00:30 Magnesium Oxide (Magnesium Oxide) 400 mg DAILY PO Last administered on 09:18; Start 07/08/17 at 09:00 Metoprolol Succinate (Toprol Xl) 25 mg DAILY PO Last administered on 07/11/17 09:20; Start 07/08/17 at 09:00 Sodium Biphosphate/ Sodium Phosphate (Fleet Adult) 133 ml PRN 1X PRN RC CONSTIPATION; Start 07/08/17 at 00:30 Pantoprazole Sodium (Protonix) 80 mg DAILYBFRSUP PO Last administered on 16:36; Start 07/08/17 at 17:00 Atorvastatin Calcium (Lipitor) 80 mg QHS PO Last administered on 07/11/17 19: 07; Start 07/08/17 at 21:00 Non-Formulary Medication (Budesonide/ Formoterol Fumarate (Symbicort 160-4.5 Mcg Inhaler)) 2 puff BID IH ; Start 07/08/17 at 09:00; Status UNV Famotidine (Pepcid) 40 mg BID PO Last administered on 07/11/17 19:05; Start at 09:00 Multivitamins/ Calcium (Thera-M Plus) 1 tab DAILY PO Last administered on 09:19; Start 07/08/17 at 09:00 Potassium Chloride (Klor-Con) 10 meq BIDWMEALS PO Last administered on 16:36; Start 07/08/17 at 08:00 Miscellaneous (Lidoderm Patch Removal) 1 ea QHS MC Last administered on 19:29; Start 07/08/17 at 21:00 Clindamycin HCl (Cleocin) 300 mg 1X ONCE PO Last administered on 07/08/17at 00: 43; Start 07/08/17 at 00:45; Stop 07/08/17 at 00:46; Status DC Budesonide (Pulmicort) 0.5 mg RTBID NEB Last administered on 07/11/17at 10:28; Start 07/08/17 at 08:00 Albuterol Sulfate (Ventolin) 2.5 mg PRN Q6HRS PRN NEB SHORTNESS OF BREATH; Start 07/08/17 at 10:00 Bupropion HCl (Wellbutrin Xl) 150 mg DAILY PO ; Start 07/09/17 at 09:00; Stop at 09:00; Status DC Bupropion HCl (Wellbutrin Xl) 300 mg DAILY PO ; Start 07/12/17 at 09:00; Stop at 09:00; Status DC Trazodone HCl (Desyrel) 50 mg PRN QHS PRN PO INSOMNIA Last administered on 07/08at 20:09; Start 07/08/17 at 19:30; Stop 07/09/17 at 16:30; Status DC Clonazepam (KlonoPIN) 0.75 mg DAILY PO Last administered on 07/11/17at 09:18; Start 07/09/17 at 09:00 Clonazepam (KlonoPIN) 1 mg BID@1400,2100 PO Last administered on 07/11/17at 19: 09; Start 07/08/17 at 21:00; Stop 07/12/17 at 13:59 Duloxetine HCl (Cymbalta) 30 mg DAILY PO Last administered on 07/11/17at 09:19; Start 07/09/17 at 09:00 Acetaminophen/ Hydrocodone Bitart (Lortab 5/325) 1 tab Q6H PO Last administered on 07/11/17at 16:16; Start 07/09/17 at 16:00 Trazodone HCl (Desyrel) 100 mg PRN QHS PRN PO INSOMNIA; Start 07/09/17 at 16:30 Aripiprazole (Abilify) 5 mg DAILY PO Last administered on 07/11/17at 09:18; Start 07/10/17 at 09:00 Doxycycline Hyclate (Vibra-Tab) 100 mg BID PO Last administered on 07/11/17at 19 :07; Start 07/10/17 at 21:00; Stop 07/17/17 at 20:59 Lactobacillus Rhamnosus (Culturelle) 1 cap BID PO Last administered on at 19:05; Start 07/10/17 at 21:00 Clonazepam (KlonoPIN) 1 mg DAILY@1400 PO ; Start 07/12/17 at 14:00 Clonazepam (KlonoPIN) 0.75 mg QHS PO ; Start 07/12/17 at 21:00 Active Scripts Active Reported Vitamin D3 (Cholecalciferol (Vitamin D3)) 1,000 Unit Tablet 1,000 Unit PO DAILY Toprol Xl (Metoprolol Succinate) 25 Mg Tab.er.24h 25 Mg PO DAILY Tessalon Perle (Benzonatate) 100 Mg Capsule 100 Mg PO PRN TID PRN Symbicort 160-4.5 Mcg Inhaler (Budesonide/Formoterol Fumarate) 10.2 Gm Hfa.aer.ad 2 Puff IH BID Protonix (Pantoprazole Sodium) 40 Mg Tablet.dr 80 Mg PO DAILYBFRSUP Potassium Chloride 10 Meq Tablet.er 10 Meq PO BID [place] 5-325 Tablet (Hydrocodone Bit/Acetaminophen) 1 Each Tablet 1 Tab PO PRN Q6HRS PRN NICODERM CQ 21mg (Nicotine) 1 Each Patch.td24 1 Patch TD DAILY Shpxg-Papeduz-Ewndodqc Tablet (Multivit-Min/Iron Fum/Folic AC) 1 Each Tablet 1 Tab PO DAILY Milk Of Magnesia (Magnesium Hydroxide) 400 Mg/5 Ml Oral.susp 2,400 Mg PO PRN DAILY PRN Magnesium Oxide 400 Mg Tablet 400 Mg PO DAILY Lisinopril 5 Mg Tablet 5 Mg PO BID Lidocaine 1 Each Adh..patch 1 Patch TP DAILY Keppra (Levetiracetam) 500 Mg Tablet 500 Mg PO BID Duoneb 0.5-3(2.5) Mg/3 Ml (Albuterol/Ipratropium) 3 Ml Ampul.neb 3 Ml NEB BID Haloperidol 2 Mg Tablet 1 Mg PO BID Haloperidol 2 Mg Tablet 2 Mg PO PRN Q6HRS PRN Fleet Enema (Na Phos,M-B/Na Phos,Di-Ba) 133 Ml Enema 133 Ml RC PRN 1X PRN Ferrous Sulfate 325 Mg Tablet 325 Mg PO QODAY Famotidine 40 Mg Tablet 40 Mg PO BID Escitalopram Oxalate 20 Mg Tablet 20 Mg PO DAILY Lovenox (Enoxaparin Sodium) 40 Mg/0.4 Ml Disp.syrin 40 Mg SQ DAILY Clonazepam 1 Mg Tablet 1 Mg PO TID Atorvastatin Calcium 80 Mg Tablet 80 Mg PO QHS Aspir-Low (Aspirin) 81 Mg Tablet. 81 Mg PO DAILY Tylenol (Acetaminophen) 325 Mg Tablet 650 Mg PO PRN Q24HRS PRN I have reviewed the current psychotropics carefully including drug interactions. Risk benefit ratio favors no change other than as noted in my dictated progress note. Diagnosis: Problems: (1) Depression (2) Malnutrition (3) Anxiety disorder (4) Major depressive disorder, recurrent episode (5) Mild cognitive disorder CELESTINE RAY MD Jul 11, 2017 20:42
[2017-07-11] MEDS: PATCH REMOVAL. MC SCH (21:00)
[2017-07-11] MEDS: ACETAMINOPHEN 325 MG TABLET PO PRN (21:21)
--- NOTE | 2017-07-11 22:26 | PN ---
DATE: 07/10/2017 PSYCHIATRIC PROGRESS NOTE This late entry date of service 07/10/2017 covers elements not covered in my initial note 07/10/2017. SUBJECTIVE: The patient seen individually evening of 07/10/2017. The patient slept 7 hours previous evening. Per nursing report, she has been withdrawn, spending much time in bed, comes out for 2 minutes with significant encouragement from nursing staff, goes right back to bed. She does have a UTI, started on doxycycline 100 mg twice a day for 7 days. I met with her in her room. REVIEW OF SYSTEMS: No CV, , pulmonary, eye system symptoms on review. Gait unsteady in wheelchair. MENTAL STATUS EXAM: Oriented to herself and situation. Speech moderate latency, low in volume, coherent, abstraction fair, computation impaired, language function intact, attention span short. Mood and affect withdrawn, but showing some improvement. LABORATORY DATA: Reviewed. IMPRESSION: Major depressive disorder with psychotic features. PLAN: Continue psychotropics mentioned in my initial note. We will increase the Cymbalta gradually. CELESTINE RAY MD DR: ROSA/mikey JOB#: [id number] / [id number]
[2017-07-12] MEDS: HYDROcodone/APAP 5/325MG 1 TAB TABLET PO SCH ×4 (04:00→19:03)
[2017-07-12 06:22] VITALS: BP 124/79
[2017-07-12] MEDS: LIDOCAINE (700MG/PATCH) PATCH. TP SCH ×2 (07:41→13:14)
[2017-07-12] MEDS: NICOTINE 21MG PATCH. TD SCH (07:42)
[2017-07-12] MEDS: ENOXAPARIN 40 MG/0.4 ML DISP.SYRIN. SQ SCH (07:42)
[2017-07-12] MEDS: POTASSIUM CHLORIDE 10 MEQ TABLET.ER. PO SCH ×2 (07:42→16:40)
[2017-07-12] MEDS: METOPROLOL SUCC 24HR ER 25 MG TAB.ER.24H. PO SCH (07:43)
[2017-07-12] MEDS: ARIPiprazole 5 MG TABLET PO SCH (07:43)
[2017-07-12] MEDS: MAGNESIUM OXIDE 400 MG TABLET PO SCH (07:43)
[2017-07-12] MEDS: LACTOBACILLUS RHAMNOSUS GG 1 CAPSULE. PO SCH ×2 (07:43→19:03)
[2017-07-12] MEDS: CHOLECALCIFEROL (VITAMIN D3) 1,000 UNIT TABLET PO SCH (07:44)
[2017-07-12] MEDS: FAMOTIDINE 20 MG TABLET PO SCH ×2 (07:44→19:03)
[2017-07-12] MEDS: MULTIVITAMIN with MINERAL TABLET. PO SCH (07:44)
[2017-07-12] MEDS: levETIRAcetam 500 MG TABLET PO SCH ×2 (07:44→19:03)
[2017-07-12] MEDS: DOXYCYCLINE HYCLATE 100 MG TABLET PO SCH ×2 (07:44→19:03)
[2017-07-12] MEDS: ASPIRIN ENTERIC COATED 81 MG TABLET.DR. PO SCH (07:44)
[2017-07-12] MEDS: LISINOPRIL 5 MG TABLET. PO SCH ×2 (07:45→19:03)
[2017-07-12] MEDS: clonazePAM 0.5 MG TABLET PO SCH (07:52)
[2017-07-12] MEDS: FERROUS SULFATE 325 MG TABLET. PO SCH (07:52)
[2017-07-12] MEDS: DULoxetine HCL 30 MG CAPSULE.DR PO SCH (09:00)
[2017-07-12] MEDS ORDERED: buPROPion XL 300 MG TAB.ER.24H. PO SCH (09:00)
[2017-07-12] MEDS: BUDESONIDE 0.5 MG/2 ML NEBU NEB SCH ×2 (11:13→22:11)
[2017-07-12] MEDS: IPRATRPIUM/ALBUTEROL 0.5/2.5MG 3 ML NEBU. NEB SCH ×2 (11:14→22:11)
[2017-07-12] MEDS ORDERED: clonazePAM 1 MG TABLET PO SCH (14:00)
[2017-07-12 15:41] VITALS: BP 90/52
[2017-07-12 16:37] VITALS: BP 105/60
[2017-07-12] MEDS: PANTOPRAZOLE 40 MG TABLET. PO SCH (16:41)
[2017-07-12] MEDS: clonazePAM 1 MG TABLET PO SCH (19:01)
[2017-07-12] MEDS: ATORVASTATIN CALCIUM 20 MG TABLET PO SCH (19:03)
[2017-07-12] MEDS: PATCH REMOVAL. MC SCH (19:04)
--- NOTE | 2017-07-12 20:19 | PDOC ---
Exam Note: Avery Note: Please also refer to the separate dictated note~for this date of service dictated separately.~Patient seen individually. Discussed the patient with Nursing staff reviewed the chart.~Reviewed interim history and current functioning. Reviewed vital signs,~Labs/ Radiology~and current medications noted below. Continue current treatment with the changes noted in the dictated addendum note Assessment: Vital Signs: Vital Signs Date Time Temp Pulse Resp B/P (MAP) Pulse Ox O2 Delivery O2 Flow Rate FiO2 07/12/17 19:03 20 97 07/12/17 19:03 91 105/60 07/12/17 15:41 97.4 07/12/17 11:14 Room Air I&O Intake and Output 07/12/17 07:00 Intake Total 1020 ml Balance 1020 ml Intake Oral 1020 ml Current Medications: Meds: Current Medications Cephalexin HCl (Keflex) 500 mg 1X ONCE PO Last administered on 07/07/17at 22:00 ; Start 07/07/17 at 22:00; Stop 07/07/17 at 22:01; Status DC Clindamycin Palmitate HCl (Cleocin Pediatric) 280 mg 1X ONCE PO ; Start at 23:45; Stop 07/07/17 at 23:46; Status UNV Acetaminophen (Tylenol) 650 mg PRN Q6HRS PRN PO PAIN / TEMP Last administered on 07/11/17at 21:21; Start 07/08/17 at 00:30 Multi-Ingredient Ointment (Analgesic [place]) 1 meme PRN QID PRN TP MUSCLE PAIN; Start 07/08/17 at 00:30 Al Hydroxide/Mg Hydroxide (Mylanta Plus Xs) 15 ml PRN AFTMEALHC PRN PO DYSPEPSIA; Start 07/08/17 at 00:30 Nicotine (Nicoderm Cq 21mg) 1 patch DAILY TD Last administered on 07/12/17at 07: 42; Start 07/08/17 at 09:00 Clonazepam (KlonoPIN) 1 mg TID PO Last administered on 07/08/17at 12:12; Start 07/08/17 at 09:00; Stop 07/08/17 at 19:33; Status DC Haloperidol (Haldol) 1 mg BID PO Last administered on 07/10/17at 19:29; Start at 09:00; Stop 07/11/17 at 05:30; Status DC Haloperidol (Haldol) 2 mg PRN Q6HRS PRN PO AGITATION; Start 07/08/17 at 00:30; Stop 07/09/17 at 16:30; Status DC Levetiracetam (Keppra) 500 mg BID PO Last administered on 07/12/17 19:03; Start 07/08/17 at 09:00 Citalopram Hydrobromide (CeleXA) 40 mg DAILY PO Last administered on 07/08/17 07:46; Start 07/08/17 at 09:00; Stop 07/08/17 at 19:33; Status DC Aspirin (Aspirin Enteric Coated) 81 mg DAILY PO Last administered on 07/12/17 07:44; Start 07/08/17 at 09:00 Benzonatate (Tessalon Perle) 100 mg PRN TID PRN PO COUGH; Start 07/08/17 at 00: 30 Vitamin D (Vitamin D3) 1,000 unit DAILY PO Last administered on 07/12/17 07:44 ; Start 07/08/17 at 09:00 Enoxaparin Sodium (Lovenox) 40 mg DAILY SQ Last administered on 07/12/17 07:42 ; Start 07/08/17 at 09:00 Ferrous Sulfate (Feosol) 325 mg QODAY PO Last administered on 07/12/17 07:52; Start 07/08/17 at 09:00 Acetaminophen/ Hydrocodone Bitart (Lortab 5/325) 1 tab PRN Q6HRS PRN PO PAIN Last administered on 07/09/17 12:46; Start 07/08/17 at 00:30; Stop 07/09/17 at 15:24; Status DC Albuterol/ Ipratropium (Duoneb) 3 ml RTBID NEB Last administered on 07/12/17 11:14; Start 07/08/17 at 08:00 Lidocaine (Lidoderm) 1 patch DAILY TP Last administered on 07/12/17 13:14; Start 07/08/17 at 09:00 Lisinopril (Prinivil) 5 mg BID PO Last administered on 07/12/17 19:03; Start 07/08/17 at 09:00 Magnesium Hydroxide (Milk Of Magnesia) 2,400 mg PRN DAILY PRN PO CONSTIPATION; Start 07/08/17 at 00:30 Magnesium Oxide (Magnesium Oxide) 400 mg DAILY PO Last administered on 07:43; Start 07/08/17 at 09:00 Metoprolol Succinate (Toprol Xl) 25 mg DAILY PO Last administered on 07/12/17 07:43; Start 07/08/17 at 09:00 Sodium Biphosphate/ Sodium Phosphate (Fleet Adult) 133 ml PRN 1X PRN RC CONSTIPATION; Start 07/08/17 at 00:30 Pantoprazole Sodium (Protonix) 80 mg DAILYBFRSUP PO Last administered on 16:41; Start 07/08/17 at 17:00 Atorvastatin Calcium (Lipitor) 80 mg QHS PO Last administered on 07/12/17 19: 03; Start 07/08/17 at 21:00 Non-Formulary Medication (Budesonide/ Formoterol Fumarate (Symbicort 160-4.5 Mcg Inhaler)) 2 puff BID IH ; Start 07/08/17 at 09:00; Status UNV Famotidine (Pepcid) 40 mg BID PO Last administered on 07/12/17 19:03; Start at 09:00 Multivitamins/ Calcium (Thera-M Plus) 1 tab DAILY PO Last administered on 07:44; Start 07/08/17 at 09:00 Potassium Chloride (Klor-Con) 10 meq BIDWMEALS PO Last administered on 16:40; Start 07/08/17 at 08:00 Miscellaneous (Lidoderm Patch Removal) 1 ea QHS MC Last administered on 19:04; Start 07/08/17 at 21:00 Clindamycin HCl (Cleocin) 300 mg 1X ONCE PO Last administered on 07/08/17 00: 43; Start 07/08/17 at 00:45; Stop 07/08/17 at 00:46; Status DC Budesonide (Pulmicort) 0.5 mg RTBID NEB Last administered on 07/12/17 11:13; Start 07/08/17 at 08:00 Albuterol Sulfate (Ventolin) 2.5 mg PRN Q6HRS PRN NEB SHORTNESS OF BREATH; Start 07/08/17 at 10:00 Bupropion HCl (Wellbutrin Xl) 150 mg DAILY PO ; Start 07/09/17 at 09:00; Stop at 09:00; Status DC Bupropion HCl (Wellbutrin Xl) 300 mg DAILY PO ; Start 07/12/17 at 09:00; Stop at 09:00; Status DC Trazodone HCl (Desyrel) 50 mg PRN QHS PRN PO INSOMNIA Last administered on 07/08at 20:09; Start 07/08/17 at 19:30; Stop 07/09/17 at 16:30; Status DC Clonazepam (KlonoPIN) 0.75 mg DAILY PO Last administered on 07/12/17at 07:52; Start 07/09/17 at 09:00 Clonazepam (KlonoPIN) 1 mg BID@1400,2100 PO Last administered on 07/11/17at 19: 09; Start 07/08/17 at 21:00; Stop 07/12/17 at 13:59; Status DC Duloxetine HCl (Cymbalta) 30 mg DAILY PO Last administered on 07/12/17at 09:00; Start 07/09/17 at 09:00 Acetaminophen/ Hydrocodone Bitart (Lortab 5/325) 1 tab Q6H PO Last administered on 07/12/17at 19:03; Start 07/09/17 at 16:00 Trazodone HCl (Desyrel) 100 mg PRN QHS PRN PO INSOMNIA; Start 07/09/17 at 16:30 Aripiprazole (Abilify) 5 mg DAILY PO Last administered on 07/12/17at 07:43; Start 07/10/17 at 09:00 Doxycycline Hyclate (Vibra-Tab) 100 mg BID PO Last administered on 07/12/17 19 :03; Start 07/10/17 at 21:00; Stop 07/17/17 at 20:59 Lactobacillus Rhamnosus (Culturelle) 1 cap BID PO Last administered on 19:03; Start 07/10/17 at 21:00 Clonazepam (KlonoPIN) 1 mg DAILY@1400 PO Last administered on 07/12/17at 15:02; Start 07/12/17 at 14:00 Clonazepam (KlonoPIN) 0.75 mg QHS PO Last administered on 07/12/17at 19:01; Start 07/12/17 at 21:00 Active Scripts Active Reported Vitamin D3 (Cholecalciferol (Vitamin D3)) 1,000 Unit Tablet 1,000 Unit PO DAILY Toprol Xl (Metoprolol Succinate) 25 Mg Tab.er.24h 25 Mg PO DAILY Tessalon Perle (Benzonatate) 100 Mg Capsule 100 Mg PO PRN TID PRN Symbicort 160-4.5 Mcg Inhaler (Budesonide/Formoterol Fumarate) 10.2 Gm Hfa.aer.ad 2 Puff IH BID Protonix (Pantoprazole Sodium) 40 Mg Tablet.dr 80 Mg PO DAILYBFRSUP Potassium Chloride 10 Meq Tablet.er 10 Meq PO BID [place] 5-325 Tablet (Hydrocodone Bit/Acetaminophen) 1 Each Tablet 1 Tab PO PRN Q6HRS PRN NICODERM CQ 21mg (Nicotine) 1 Each Patch.td24 1 Patch TD DAILY Uvbsc-Zzifyoe-Jwmlxsni Tablet (Multivit-Min/Iron Fum/Folic AC) 1 Each Tablet 1 Tab PO DAILY Milk Of Magnesia (Magnesium Hydroxide) 400 Mg/5 Ml Oral.susp 2,400 Mg PO PRN DAILY PRN Magnesium Oxide 400 Mg Tablet 400 Mg PO DAILY Lisinopril 5 Mg Tablet 5 Mg PO BID Lidocaine 1 Each Adh..patch 1 Patch TP DAILY Keppra (Levetiracetam) 500 Mg Tablet 500 Mg PO BID Duoneb 0.5-3(2.5) Mg/3 Ml (Albuterol/Ipratropium) 3 Ml Ampul.neb 3 Ml NEB BID Haloperidol 2 Mg Tablet 1 Mg PO BID Haloperidol 2 Mg Tablet 2 Mg PO PRN Q6HRS PRN Fleet Enema (Na Phos,M-B/Na Phos,Di-Ba) 133 Ml Enema 133 Ml RC PRN 1X PRN Ferrous Sulfate 325 Mg Tablet 325 Mg PO QODAY Famotidine 40 Mg Tablet 40 Mg PO BID Escitalopram Oxalate 20 Mg Tablet 20 Mg PO DAILY Lovenox (Enoxaparin Sodium) 40 Mg/0.4 Ml Disp.syrin 40 Mg SQ DAILY Clonazepam 1 Mg Tablet 1 Mg PO TID Atorvastatin Calcium 80 Mg Tablet 80 Mg PO QHS Aspir-Low (Aspirin) 81 Mg Tablet.dr 81 Mg PO DAILY Tylenol (Acetaminophen) 325 Mg Tablet 650 Mg PO PRN Q24HRS PRN I have reviewed the current psychotropics carefully including drug interactions. Risk benefit ratio favors no change other than as noted in my dictated progress note. Diagnosis: Problems: (1) Depression (2) Malnutrition (3) Anxiety disorder (4) Major depressive disorder, recurrent episode (5) Mild cognitive disorder CELESTINE RAY MD Jul 12, 2017 20:19
--- NOTE | 2017-07-12 22:04 | PN ---
DATE: 07/11/2017 This late entry 07/11/2017 covers elements not covered in my initial note 07/11/2017. SUBJECTIVE: Met with the patient in the evening. The patient has been somewhat withdrawn, frequently back to her room. Staff are trying to encourage her to stay outside, attend activities. She spent a little time outside in the afternoon, but as I met with her in the evening, she is trying to get back to her room right after dinner, somewhat prematurely and nursing staff brought her out. She does have a UTI and is on doxycycline. REVIEW OF SYSTEMS: Impaired ambulation. No CV, , pulmonary, eye, ENT system symptoms on review. MENTAL STATUS EXAM: Oriented to herself and situation. Speech is moderate latency, often responses monosyllabic, coherent. Abstraction fair, computation impaired, language function intact, attention span short. Mood and affect still depressed. LABORATORY DATA: Reviewed. IMPRESSION: Major depressive disorder with psychotic features. PLAN: The patient is currently on Klonopin 0.75 mg in the morning and 1 mg at 1400 and 2100. We will reduce the Klonopin at 2100 down to 0.75 mg starting on the and reduce further gradually since it could be sedating her. Continue rest unchanged. CELESTINE RAY MD DR: ROSA/mikey JOB#: [id number] / [id number]
[2017-07-13] MEDS: HYDROcodone/APAP 5/325MG 1 TAB TABLET PO SCH ×4 (04:00→22:25)
[2017-07-13 06:10] VITALS: BP 138/80
[2017-07-13] MEDS: ARIPiprazole 5 MG TABLET PO SCH (08:26)
[2017-07-13] MEDS: FAMOTIDINE 20 MG TABLET PO SCH ×2 (08:26→20:27)
[2017-07-13] MEDS: ASPIRIN ENTERIC COATED 81 MG TABLET.DR. PO SCH (08:26)
[2017-07-13] MEDS: MULTIVITAMIN with MINERAL TABLET. PO SCH (08:26)
[2017-07-13] MEDS: MAGNESIUM OXIDE 400 MG TABLET PO SCH (08:26)
[2017-07-13] MEDS: LISINOPRIL 5 MG TABLET. PO SCH ×2 (08:26→20:32)
[2017-07-13] MEDS: POTASSIUM CHLORIDE 10 MEQ TABLET.ER. PO SCH ×2 (08:27→16:35)
[2017-07-13] MEDS: METOPROLOL SUCC 24HR ER 25 MG TAB.ER.24H. PO SCH (08:27)
[2017-07-13] MEDS: DULoxetine HCL 30 MG CAPSULE.DR PO SCH (08:27)
[2017-07-13] MEDS: DOXYCYCLINE HYCLATE 100 MG TABLET PO SCH ×2 (08:27→20:26)
[2017-07-13] MEDS: LACTOBACILLUS RHAMNOSUS GG 1 CAPSULE. PO SCH ×2 (08:27→20:27)
[2017-07-13] MEDS: CHOLECALCIFEROL (VITAMIN D3) 1,000 UNIT TABLET PO SCH (08:28)
[2017-07-13] MEDS: levETIRAcetam 500 MG TABLET PO SCH ×2 (08:28→20:27)
[2017-07-13] MEDS: ENOXAPARIN 40 MG/0.4 ML DISP.SYRIN. SQ SCH (08:28)
[2017-07-13] MEDS: NICOTINE 21MG PATCH. TD SCH (08:29)
[2017-07-13] MEDS: clonazePAM 0.5 MG TABLET PO SCH (08:33)
[2017-07-13] MEDS: IPRATRPIUM/ALBUTEROL 0.5/2.5MG 3 ML NEBU. NEB SCH ×2 (10:09→22:45)
[2017-07-13] MEDS: BUDESONIDE 0.5 MG/2 ML NEBU NEB SCH ×2 (10:09→22:45)
[2017-07-13] MEDS: clonazePAM 1 MG TABLET PO SCH ×2 (14:20→20:30)
[2017-07-13 16:16] VITALS: BP 97/45
[2017-07-13 16:32] VITALS: BP 102/62
[2017-07-13] MEDS: PANTOPRAZOLE 40 MG TABLET. PO SCH (16:35)
[2017-07-13 16:45] VITALS: BP 102/62
[2017-07-13] MEDS: ATORVASTATIN CALCIUM 20 MG TABLET PO SCH (20:27)
[2017-07-13] MEDS: ACETAMINOPHEN 325 MG TABLET PO PRN (20:38)
[2017-07-13] MEDS: PATCH REMOVAL. MC SCH (21:00)
--- NOTE | 2017-07-13 21:05 | PDOC ---
Exam Note: Avery Note: Please also refer to the separate dictated note~for this date of service dictated separately.~Patient seen individually. Discussed the patient with Nursing staff reviewed the chart.~Reviewed interim history and current functioning. Reviewed vital signs,~Labs/ Radiology~and current medications noted below. Continue current treatment with the changes noted in the dictated addendum note Assessment: Vital Signs: Vital Signs Date Time Temp Pulse Resp B/P (MAP) Pulse Ox O2 Delivery O2 Flow Rate FiO2 07/13/17 20:32 86 110/64 07/13/17 16:32 Room Air 07/13/17 16:16 97.8 18 97 I&O Intake and Output 07/13/17 07:00 Intake Total 630 ml Balance 630 ml Intake Oral 630 ml # Voids 1 Current Medications: Meds: Current Medications Cephalexin HCl (Keflex) 500 mg 1X ONCE PO Last administered on 07/07/17at 22:00 ; Start 07/07/17 at 22:00; Stop 07/07/17 at 22:01; Status DC Clindamycin Palmitate HCl (Cleocin Pediatric) 280 mg 1X ONCE PO ; Start at 23:45; Stop 07/07/17 at 23:46; Status UNV Acetaminophen (Tylenol) 650 mg PRN Q6HRS PRN PO PAIN / TEMP Last administered on 07/13/17at 20:38; Start 07/08/17 at 00:30 Multi-Ingredient Ointment (Analgesic [place]) 1 meme PRN QID PRN TP MUSCLE PAIN; Start 07/08/17 at 00:30 Al Hydroxide/Mg Hydroxide (Mylanta Plus Xs) 15 ml PRN AFTMEALHC PRN PO DYSPEPSIA; Start 07/08/17 at 00:30 Nicotine (Nicoderm Cq 21mg) 1 patch DAILY TD Last administered on 07/13/17at 08: 29; Start 07/08/17 at 09:00 Clonazepam (KlonoPIN) 1 mg TID PO Last administered on 07/08/17at 12:12; Start 07/08/17 at 09:00; Stop 07/08/17 at 19:33; Status DC Haloperidol (Haldol) 1 mg BID PO Last administered on 07/10/17at 19:29; Start at 09:00; Stop 07/11/17 at 05:30; Status DC Haloperidol (Haldol) 2 mg PRN Q6HRS PRN PO AGITATION; Start 07/08/17 at 00:30; Stop 07/09/17 at 16:30; Status DC Levetiracetam (Keppra) 500 mg BID PO Last administered on 07/13/17 20:27; Start 07/08/17 at 09:00 Citalopram Hydrobromide (CeleXA) 40 mg DAILY PO Last administered on 07/08/17 07:46; Start 07/08/17 at 09:00; Stop 07/08/17 at 19:33; Status DC Aspirin (Aspirin Enteric Coated) 81 mg DAILY PO Last administered on 07/13/17 08:26; Start 07/08/17 at 09:00 Benzonatate (Tessalon Perle) 100 mg PRN TID PRN PO COUGH; Start 07/08/17 at 00: 30 Vitamin D (Vitamin D3) 1,000 unit DAILY PO Last administered on 07/13/17 08:28 ; Start 07/08/17 at 09:00 Enoxaparin Sodium (Lovenox) 40 mg DAILY SQ Last administered on 07/13/17 08:28 ; Start 07/08/17 at 09:00 Ferrous Sulfate (Feosol) 325 mg QODAY PO Last administered on 07/12/17 07:52; Start 07/08/17 at 09:00 Acetaminophen/ Hydrocodone Bitart (Lortab 5/325) 1 tab PRN Q6HRS PRN PO PAIN Last administered on 07/09/17 12:46; Start 07/08/17 at 00:30; Stop 07/09/17 at 15:24; Status DC Albuterol/ Ipratropium (Duoneb) 3 ml RTBID NEB Last administered on 07/13/17 10:09; Start 07/08/17 at 08:00 Lidocaine (Lidoderm) 1 patch DAILY TP Last administered on 07/12/17 13:14; Start 07/08/17 at 09:00 Lisinopril (Prinivil) 5 mg BID PO Last administered on 07/13/17at 20:32; Start 07/08/17 at 09:00 Magnesium Hydroxide (Milk Of Magnesia) 2,400 mg PRN DAILY PRN PO CONSTIPATION; Start 07/08/17 at 00:30 Magnesium Oxide (Magnesium Oxide) 400 mg DAILY PO Last administered on 08:26; Start 07/08/17 at 09:00 Metoprolol Succinate (Toprol Xl) 25 mg DAILY PO Last administered on 07/13/17at 08:27; Start 07/08/17 at 09:00 Sodium Biphosphate/ Sodium Phosphate (Fleet Adult) 133 ml PRN 1X PRN RC CONSTIPATION; Start 07/08/17 at 00:30 Pantoprazole Sodium (Protonix) 80 mg DAILYBFRSUP PO Last administered on 16:35; Start 07/08/17 at 17:00 Atorvastatin Calcium (Lipitor) 80 mg QHS PO Last administered on 07/13/17 20: 27; Start 07/08/17 at 21:00 Non-Formulary Medication (Budesonide/ Formoterol Fumarate (Symbicort 160-4.5 Mcg Inhaler)) 2 puff BID IH ; Start 07/08/17 at 09:00; Status UNV Famotidine (Pepcid) 40 mg BID PO Last administered on 07/13/17 20:27; Start at 09:00 Multivitamins/ Calcium (Thera-M Plus) 1 tab DAILY PO Last administered on 08:26; Start 07/08/17 at 09:00 Potassium Chloride (Klor-Con) 10 meq BIDWMEALS PO Last administered on 16:35; Start 07/08/17 at 08:00 Miscellaneous (Lidoderm Patch Removal) 1 ea QHS MC Last administered on 19:04; Start 07/08/17 at 21:00 Clindamycin HCl (Cleocin) 300 mg 1X ONCE PO Last administered on 07/08/17at 00: 43; Start 07/08/17 at 00:45; Stop 07/08/17 at 00:46; Status DC Budesonide (Pulmicort) 0.5 mg RTBID NEB Last administered on 07/13/17at 10:09; Start 07/08/17 at 08:00 Albuterol Sulfate (Ventolin) 2.5 mg PRN Q6HRS PRN NEB SHORTNESS OF BREATH; Start 07/08/17 at 10:00 Bupropion HCl (Wellbutrin Xl) 150 mg DAILY PO ; Start 07/09/17 at 09:00; Stop at 09:00; Status DC Bupropion HCl (Wellbutrin Xl) 300 mg DAILY PO ; Start 07/12/17 at 09:00; Stop at 09:00; Status DC Trazodone HCl (Desyrel) 50 mg PRN QHS PRN PO INSOMNIA Last administered on 07/08at 20:09; Start 07/08/17 at 19:30; Stop 07/09/17 at 16:30; Status DC Clonazepam (KlonoPIN) 0.75 mg DAILY PO Last administered on 07/13/17at 08:33; Start 07/09/17 at 09:00 Clonazepam (KlonoPIN) 1 mg BID@1400,2100 PO Last administered on 07/11/17at 19: 09; Start 07/08/17 at 21:00; Stop 07/12/17 at 13:59; Status DC Duloxetine HCl (Cymbalta) 30 mg DAILY PO Last administered on 07/13/17 08:27; Start 07/09/17 at 09:00 Acetaminophen/ Hydrocodone Bitart (Lortab 5/325) 1 tab Q6H PO Last administered on 07/12/17at 19:03; Start 07/09/17 at 16:00 Trazodone HCl (Desyrel) 100 mg PRN QHS PRN PO INSOMNIA; Start 07/09/17 at 16:30 Aripiprazole (Abilify) 5 mg DAILY PO Last administered on 07/13/17at 08:26; Start 07/10/17 at 09:00 Doxycycline Hyclate (Vibra-Tab) 100 mg BID PO Last administered on 07/13/17 20 :26; Start 07/10/17 at 21:00; Stop 07/17/17 at 20:59 Lactobacillus Rhamnosus (Culturelle) 1 cap BID PO Last administered on at 20:27; Start 07/10/17 at 21:00 Clonazepam (KlonoPIN) 1 mg DAILY@1400 PO Last administered on 07/12/17at 15:02; Start 07/12/17 at 14:00; Stop 07/13/17 at 12:12; Status DC Clonazepam (KlonoPIN) 0.75 mg QHS PO Last administered on 07/13/17at 20:30; Start 07/12/17 at 21:00 Clonazepam (KlonoPIN) 0.75 mg DAILY@1400 PO Last administered on 07/13/17at 14: 20; Start 07/13/17 at 14:00 Active Scripts Active Reported Vitamin D3 (Cholecalciferol (Vitamin D3)) 1,000 Unit Tablet 1,000 Unit PO DAILY Toprol Xl (Metoprolol Succinate) 25 Mg Tab.er.24h 25 Mg PO DAILY Tessalon Perle (Benzonatate) 100 Mg Capsule 100 Mg PO PRN TID PRN Symbicort 160-4.5 Mcg Inhaler (Budesonide/Formoterol Fumarate) 10.2 Gm Hfa.aer.ad 2 Puff IH BID Protonix (Pantoprazole Sodium) 40 Mg Tablet.dr 80 Mg PO DAILYBFRSUP Potassium Chloride 10 Meq Tablet.er 10 Meq PO BID [place] 5-325 Tablet (Hydrocodone Bit/Acetaminophen) 1 Each Tablet 1 Tab PO PRN Q6HRS PRN NICODERM CQ 21mg (Nicotine) 1 Each Patch.td24 1 Patch TD DAILY Mibyw-Lpximef-Dtekfufp Tablet (Multivit-Min/Iron Fum/Folic AC) 1 Each Tablet 1 Tab PO DAILY Milk Of Magnesia (Magnesium Hydroxide) 400 Mg/5 Ml Oral.susp 2,400 Mg PO PRN DAILY PRN Magnesium Oxide 400 Mg Tablet 400 Mg PO DAILY Lisinopril 5 Mg Tablet 5 Mg PO BID Lidocaine 1 Each Adh..patch 1 Patch TP DAILY Keppra (Levetiracetam) 500 Mg Tablet 500 Mg PO BID Duoneb 0.5-3(2.5) Mg/3 Ml (Albuterol/Ipratropium) 3 Ml Ampul.neb 3 Ml NEB BID Haloperidol 2 Mg Tablet 1 Mg PO BID Haloperidol 2 Mg Tablet 2 Mg PO PRN Q6HRS PRN Fleet Enema (Na Phos,M-B/Na Phos,Di-Ba) 133 Ml Enema 133 Ml RC PRN 1X PRN Ferrous Sulfate 325 Mg Tablet 325 Mg PO QODAY Famotidine 40 Mg Tablet 40 Mg PO BID Escitalopram Oxalate 20 Mg Tablet 20 Mg PO DAILY Lovenox (Enoxaparin Sodium) 40 Mg/0.4 Ml Disp.syrin 40 Mg SQ DAILY Clonazepam 1 Mg Tablet 1 Mg PO TID Atorvastatin Calcium 80 Mg Tablet 80 Mg PO QHS Aspir-Low (Aspirin) 81 Mg Tablet.dr 81 Mg PO DAILY Tylenol (Acetaminophen) 325 Mg Tablet 650 Mg PO PRN Q24HRS PRN I have reviewed the current psychotropics carefully including drug interactions. Risk benefit ratio favors no change other than as noted in my dictated progress note. Diagnosis: Problems: (1) Depression (2) Malnutrition (3) Anxiety disorder (4) Major depressive disorder, recurrent episode (5) Mild cognitive disorder CELESTINE RAY MD Jul 13, 2017 21:05
[2017-07-14] MEDS: HYDROcodone/APAP 5/325MG 1 TAB TABLET PO SCH ×4 (04:00→22:00)
[2017-07-14 05:49] VITALS: BP 114/58
[2017-07-14] MEDS: BUDESONIDE 0.5 MG/2 ML NEBU NEB SCH ×2 (09:59→20:16)
[2017-07-14] MEDS: IPRATRPIUM/ALBUTEROL 0.5/2.5MG 3 ML NEBU. NEB SCH ×2 (09:59→20:16)
[2017-07-14] MEDS: DOXYCYCLINE HYCLATE 100 MG TABLET PO SCH ×2 (10:09→19:10)
[2017-07-14] MEDS: FAMOTIDINE 20 MG TABLET PO SCH ×2 (10:09→19:09)
[2017-07-14] MEDS: CHOLECALCIFEROL (VITAMIN D3) 1,000 UNIT TABLET PO SCH (10:09)
[2017-07-14] MEDS: ARIPiprazole 5 MG TABLET PO SCH (10:09)
[2017-07-14] MEDS: MAGNESIUM OXIDE 400 MG TABLET PO SCH (10:09)
[2017-07-14] MEDS: DULoxetine HCL 30 MG CAPSULE.DR PO SCH (10:09)
[2017-07-14] MEDS: MULTIVITAMIN with MINERAL TABLET. PO SCH (10:09)
[2017-07-14] MEDS: LISINOPRIL 5 MG TABLET. PO SCH ×2 (10:10→19:20)
[2017-07-14] MEDS: LACTOBACILLUS RHAMNOSUS GG 1 CAPSULE. PO SCH ×2 (10:10→19:09)
[2017-07-14] MEDS: levETIRAcetam 500 MG TABLET PO SCH ×2 (10:10→19:11)
[2017-07-14] MEDS: POTASSIUM CHLORIDE 10 MEQ TABLET.ER. PO SCH ×3 (10:10→18:31)
[2017-07-14] MEDS: ASPIRIN ENTERIC COATED 81 MG TABLET.DR. PO SCH (10:10)
[2017-07-14] MEDS: METOPROLOL SUCC 24HR ER 25 MG TAB.ER.24H. PO SCH (10:10)
[2017-07-14] MEDS: ENOXAPARIN 40 MG/0.4 ML DISP.SYRIN. SQ SCH (10:11)
[2017-07-14] MEDS: LIDOCAINE (700MG/PATCH) PATCH. TP SCH (10:12)
[2017-07-14] MEDS: NICOTINE 21MG PATCH. TD SCH (10:12)
[2017-07-14] MEDS: FERROUS SULFATE 325 MG TABLET. PO SCH (10:14)
[2017-07-14] MEDS: clonazePAM 0.5 MG TABLET PO SCH (10:15)
[2017-07-14 14:29] VITALS: BP 113/72
[2017-07-14] MEDS: clonazePAM 1 MG TABLET PO SCH ×2 (15:02→19:19)
[2017-07-14 16:19] VITALS: BP 98/62
[2017-07-14] MEDS: PANTOPRAZOLE 40 MG TABLET. PO SCH ×2 (17:43→18:31)
[2017-07-14] MEDS: ATORVASTATIN CALCIUM 20 MG TABLET PO SCH (19:11)
[2017-07-14] MEDS: PATCH REMOVAL. MC SCH (21:00)
--- NOTE | 2017-07-14 22:52 | PDOC ---
Exam Note: Avery Note: Please also refer to the separate dictated note~for this date of service dictated separately.~Patient seen individually. Discussed the patient with Nursing staff reviewed the chart.~Reviewed interim history and current functioning. Reviewed vital signs,~Labs/ Radiology~and current medications noted below. Continue current treatment with the changes noted in the dictated addendum note Assessment: Vital Signs: Vital Signs Date Time Temp Pulse Resp B/P (MAP) Pulse Ox O2 Delivery O2 Flow Rate FiO2 07/14/17 20:19 Room Air 07/14/17 20:15 98 07/14/17 19:20 89 121/89 07/14/17 16:19 97.6 20 I&O Intake and Output 07/14/17 07:00 Intake Total 960 ml Balance 960 ml Intake Oral 960 ml Current Medications: Meds: Current Medications Cephalexin HCl (Keflex) 500 mg 1X ONCE PO Last administered on 07/07/17at 22:00 ; Start 07/07/17 at 22:00; Stop 07/07/17 at 22:01; Status DC Clindamycin Palmitate HCl (Cleocin Pediatric) 280 mg 1X ONCE PO ; Start at 23:45; Stop 07/07/17 at 23:46; Status UNV Acetaminophen (Tylenol) 650 mg PRN Q6HRS PRN PO PAIN / TEMP Last administered on 07/13/17at 20:38; Start 07/08/17 at 00:30 Multi-Ingredient Ointment (Analgesic [place]) 1 meme PRN QID PRN TP MUSCLE PAIN; Start 07/08/17 at 00:30 Al Hydroxide/Mg Hydroxide (Mylanta Plus Xs) 15 ml PRN AFTMEALHC PRN PO DYSPEPSIA; Start 07/08/17 at 00:30 Nicotine (Nicoderm Cq 21mg) 1 patch DAILY TD Last administered on 07/14/17at 10: 12; Start 07/08/17 at 09:00 Clonazepam (KlonoPIN) 1 mg TID PO Last administered on 07/08/17at 12:12; Start 07/08/17 at 09:00; Stop 07/08/17 at 19:33; Status DC Haloperidol (Haldol) 1 mg BID PO Last administered on 07/10/17at 19:29; Start at 09:00; Stop 07/11/17 at 05:30; Status DC Haloperidol (Haldol) 2 mg PRN Q6HRS PRN PO AGITATION; Start 07/08/17 at 00:30; Stop 07/09/17 at 16:30; Status DC Levetiracetam (Keppra) 500 mg BID PO Last administered on 07/14/17 19:11; Start 07/08/17 at 09:00 Citalopram Hydrobromide (CeleXA) 40 mg DAILY PO Last administered on 07/08/17at 07:46; Start 07/08/17 at 09:00; Stop 07/08/17 at 19:33; Status DC Aspirin (Aspirin Enteric Coated) 81 mg DAILY PO Last administered on 07/14/17 10:10; Start 07/08/17 at 09:00 Benzonatate (Tessalon Perle) 100 mg PRN TID PRN PO COUGH; Start 07/08/17 at 00: 30 Vitamin D (Vitamin D3) 1,000 unit DAILY PO Last administered on 07/14/17 10:09 ; Start 07/08/17 at 09:00 Enoxaparin Sodium (Lovenox) 40 mg DAILY SQ Last administered on 07/14/17 10:11 ; Start 07/08/17 at 09:00 Ferrous Sulfate (Feosol) 325 mg QODAY PO Last administered on 07/14/17 10:14; Start 07/08/17 at 09:00 Acetaminophen/ Hydrocodone Bitart (Lortab 5/325) 1 tab PRN Q6HRS PRN PO PAIN Last administered on 07/09/17 12:46; Start 07/08/17 at 00:30; Stop 07/09/17 at 15:24; Status DC Albuterol/ Ipratropium (Duoneb) 3 ml RTBID NEB Last administered on 07/14/17 20:16; Start 07/08/17 at 08:00 Lidocaine (Lidoderm) 1 patch DAILY TP Last administered on 07/14/17 10:12; Start 07/08/17 at 09:00 Lisinopril (Prinivil) 5 mg BID PO Last administered on 07/14/17 19:20; Start 07/08/17 at 09:00 Magnesium Hydroxide (Milk Of Magnesia) 2,400 mg PRN DAILY PRN PO CONSTIPATION; Start 07/08/17 at 00:30 Magnesium Oxide (Magnesium Oxide) 400 mg DAILY PO Last administered on 10:09; Start 07/08/17 at 09:00 Metoprolol Succinate (Toprol Xl) 25 mg DAILY PO Last administered on 07/14/17 10:10; Start 07/08/17 at 09:00 Sodium Biphosphate/ Sodium Phosphate (Fleet Adult) 133 ml PRN 1X PRN RC CONSTIPATION; Start 07/08/17 at 00:30 Pantoprazole Sodium (Protonix) 80 mg DAILYBFRSUP PO Last administered on 16:35; Start 07/08/17 at 17:00 Atorvastatin Calcium (Lipitor) 80 mg QHS PO Last administered on 07/14/17 19: 11; Start 07/08/17 at 21:00 Non-Formulary Medication (Budesonide/ Formoterol Fumarate (Symbicort 160-4.5 Mcg Inhaler)) 2 puff BID IH ; Start 07/08/17 at 09:00; Status UNV Famotidine (Pepcid) 40 mg BID PO Last administered on 07/14/17 19:09; Start at 09:00 Multivitamins/ Calcium (Thera-M Plus) 1 tab DAILY PO Last administered on 10:09; Start 07/08/17 at 09:00 Potassium Chloride (Klor-Con) 10 meq BIDWMEALS PO Last administered on 10:10; Start 07/08/17 at 08:00 Miscellaneous (Lidoderm Patch Removal) 1 ea QHS MC Last administered on 21:00; Start 07/08/17 at 21:00 Clindamycin HCl (Cleocin) 300 mg 1X ONCE PO Last administered on 07/08/17at 00: 43; Start 07/08/17 at 00:45; Stop 07/08/17 at 00:46; Status DC Budesonide (Pulmicort) 0.5 mg RTBID NEB Last administered on 07/14/17at 20:16; Start 07/08/17 at 08:00 Albuterol Sulfate (Ventolin) 2.5 mg PRN Q6HRS PRN NEB SHORTNESS OF BREATH; Start 07/08/17 at 10:00 Bupropion HCl (Wellbutrin Xl) 150 mg DAILY PO ; Start 07/09/17 at 09:00; Stop at 09:00; Status DC Bupropion HCl (Wellbutrin Xl) 300 mg DAILY PO ; Start 07/12/17 at 09:00; Stop at 09:00; Status DC Trazodone HCl (Desyrel) 50 mg PRN QHS PRN PO INSOMNIA Last administered on 07/08at 20:09; Start 07/08/17 at 19:30; Stop 07/09/17 at 16:30; Status DC Clonazepam (KlonoPIN) 0.75 mg DAILY PO Last administered on 07/14/17at 10:15; Start 07/09/17 at 09:00 Clonazepam (KlonoPIN) 1 mg BID@1400,2100 PO Last administered on 07/11/17at 19: 09; Start 07/08/17 at 21:00; Stop 07/12/17 at 13:59; Status DC Duloxetine HCl (Cymbalta) 30 mg DAILY PO Last administered on 07/14/17 10:09; Start 07/09/17 at 09:00 Acetaminophen/ Hydrocodone Bitart (Lortab 5/325) 1 tab Q6H PO Last administered on 07/14/17at 10:14; Start 07/09/17 at 16:00 Trazodone HCl (Desyrel) 100 mg PRN QHS PRN PO INSOMNIA; Start 07/09/17 at 16:30 Aripiprazole (Abilify) 5 mg DAILY PO Last administered on 07/14/17at 10:09; Start 07/10/17 at 09:00 Doxycycline Hyclate (Vibra-Tab) 100 mg BID PO Last administered on 07/14/17 19 :10; Start 07/10/17 at 21:00; Stop 07/17/17 at 20:59 Lactobacillus Rhamnosus (Culturelle) 1 cap BID PO Last administered on 19:09; Start 07/10/17 at 21:00 Clonazepam (KlonoPIN) 1 mg DAILY@1400 PO Last administered on 07/12/17at 15:02; Start 07/12/17 at 14:00; Stop 07/13/17 at 12:12; Status DC Clonazepam (KlonoPIN) 0.75 mg QHS PO Last administered on 07/14/17at 19:19; Start 07/12/17 at 21:00 Clonazepam (KlonoPIN) 0.75 mg DAILY@1400 PO Last administered on 07/13/17at 14: 20; Start 07/13/17 at 14:00 Active Scripts Active Reported Vitamin D3 (Cholecalciferol (Vitamin D3)) 1,000 Unit Tablet 1,000 Unit PO DAILY Toprol Xl (Metoprolol Succinate) 25 Mg Tab.er.24h 25 Mg PO DAILY Tessalon Perle (Benzonatate) 100 Mg Capsule 100 Mg PO PRN TID PRN Symbicort 160-4.5 Mcg Inhaler (Budesonide/Formoterol Fumarate) 10.2 Gm Hfa.aer.ad 2 Puff IH BID Protonix (Pantoprazole Sodium) 40 Mg Tablet.dr 80 Mg PO DAILYBFRSUP Potassium Chloride 10 Meq Tablet.er 10 Meq PO BID [place] 5-325 Tablet (Hydrocodone Bit/Acetaminophen) 1 Each Tablet 1 Tab PO PRN Q6HRS PRN NICODERM CQ 21mg (Nicotine) 1 Each Patch.td24 1 Patch TD DAILY Qfysj-Qrgaeps-Jkfgrfar Tablet (Multivit-Min/Iron Fum/Folic AC) 1 Each Tablet 1 Tab PO DAILY Milk Of Magnesia (Magnesium Hydroxide) 400 Mg/5 Ml Oral.susp 2,400 Mg PO PRN DAILY PRN Magnesium Oxide 400 Mg Tablet 400 Mg PO DAILY Lisinopril 5 Mg Tablet 5 Mg PO BID Lidocaine 1 Each Adh..patch 1 Patch TP DAILY Keppra (Levetiracetam) 500 Mg Tablet 500 Mg PO BID Duoneb 0.5-3(2.5) Mg/3 Ml (Albuterol/Ipratropium) 3 Ml Ampul.neb 3 Ml NEB BID Haloperidol 2 Mg Tablet 1 Mg PO BID Haloperidol 2 Mg Tablet 2 Mg PO PRN Q6HRS PRN Fleet Enema (Na Phos,M-B/Na Phos,Di-Ba) 133 Ml Enema 133 Ml RC PRN 1X PRN Ferrous Sulfate 325 Mg Tablet 325 Mg PO QODAY Famotidine 40 Mg Tablet 40 Mg PO BID Escitalopram Oxalate 20 Mg Tablet 20 Mg PO DAILY Lovenox (Enoxaparin Sodium) 40 Mg/0.4 Ml Disp.syrin 40 Mg SQ DAILY Clonazepam 1 Mg Tablet 1 Mg PO TID Atorvastatin Calcium 80 Mg Tablet 80 Mg PO QHS Aspir-Low (Aspirin) 81 Mg Tablet. 81 Mg PO DAILY Tylenol (Acetaminophen) 325 Mg Tablet 650 Mg PO PRN Q24HRS PRN I have reviewed the current psychotropics carefully including drug interactions. Risk benefit ratio favors no change other than as noted in my dictated progress note. Diagnosis: Problems: (1) Depression (2) Malnutrition (3) Anxiety disorder (4) Major depressive disorder, recurrent episode (5) Mild cognitive disorder CELESTINE RAY MD Jul 14, 2017 22:52
[2017-07-15] MEDS: HYDROcodone/APAP 5/325MG 1 TAB TABLET PO SCH ×4 (04:00→21:37)
[2017-07-15 06:16] VITALS: BP 133/60
[2017-07-15] MEDS: IPRATRPIUM/ALBUTEROL 0.5/2.5MG 3 ML NEBU. NEB SCH ×2 (08:00→20:16)
[2017-07-15] MEDS: BUDESONIDE 0.5 MG/2 ML NEBU NEB SCH ×2 (08:00→20:16)
[2017-07-15 08:43] LABS: ALBUMIN 2.6 g/dL (3.4-5.0); ALBUMIN/GLOBULIN RATIO 0.7 (1.0-1.7); CALCIUM 9.8 mg/dL (8.5-10.1); CREATININE 1.3 mg/dL (0.6-1.0); GFR 41.1; POTASSIUM 4.5 mmol/L (3.5-5.1); TOTAL BILIRUBIN 0.3 mg/dL (0.2-1.0); TOTAL PROTEIN 6.2 g/dL (6.4-8.2)
[2017-07-15] MEDS: NICOTINE 21MG PATCH. TD SCH (09:02)
[2017-07-15] MEDS: LISINOPRIL 5 MG TABLET. PO SCH ×2 (09:03→19:34)
[2017-07-15] MEDS: DOXYCYCLINE HYCLATE 100 MG TABLET PO SCH ×2 (09:03→19:33)
[2017-07-15] MEDS: ASPIRIN ENTERIC COATED 81 MG TABLET.DR. PO SCH (09:03)
[2017-07-15] MEDS: levETIRAcetam 500 MG TABLET PO SCH ×2 (09:03→19:33)
[2017-07-15] MEDS: POTASSIUM CHLORIDE 10 MEQ TABLET.ER. PO SCH ×2 (09:03→16:52)
[2017-07-15] MEDS: CHOLECALCIFEROL (VITAMIN D3) 1,000 UNIT TABLET PO SCH (09:04)
[2017-07-15] MEDS: FAMOTIDINE 20 MG TABLET PO SCH ×2 (09:04→19:33)
[2017-07-15] MEDS: LACTOBACILLUS RHAMNOSUS GG 1 CAPSULE. PO SCH ×2 (09:04→19:33)
[2017-07-15] MEDS: MAGNESIUM OXIDE 400 MG TABLET PO SCH (09:04)
[2017-07-15] MEDS: ARIPiprazole 5 MG TABLET PO SCH (09:04)
[2017-07-15] MEDS: DULoxetine HCL 30 MG CAPSULE.DR PO SCH (09:04)
[2017-07-15] MEDS: MULTIVITAMIN with MINERAL TABLET. PO SCH (09:04)
[2017-07-15] MEDS: METOPROLOL SUCC 24HR ER 25 MG TAB.ER.24H. PO SCH (09:05)
[2017-07-15] MEDS: clonazePAM 0.5 MG TABLET PO SCH (09:08)
[2017-07-15] MEDS: ENOXAPARIN 40 MG/0.4 ML DISP.SYRIN. SQ SCH (09:09)
[2017-07-15] MEDS: LIDOCAINE (700MG/PATCH) PATCH. TP SCH (09:10)
[2017-07-15 09:13] LABS: BASO # 0.1 x10^3/uL (0.0-0.2); BASO % 1 % (0-3); EOS # 0.1 x10^3/uL (0.0-0.7); EOS % 1 % (0-3); HEMATOCRIT 26.1 % (36.0-47.0); HEMOGLOBIN 8.6 g/dL (12.0-15.5); LYMPH # 1.4 x10^3/uL (1.0-4.8); LYMPH % 19 % (24-48); MEAN CORPUSCULAR HEMOGLOBIN 32 pg (25-35); MEAN CORPUSCULAR HGB CONC 33 g/dL (31-37); MEAN CORPUSCULAR VOLUME 98 fL (79-100); MONO # 0.5 x10^3/uL (0.0-1.1); MONO % 7 % (0-9); NEUT # 5.7 x10^3uL (1.8-7.7); NEUT % 72 % (31-73); PLATELET COUNT 296 x10^3/uL (140-400); RED BLOOD COUNT 2.67 x10^6/uL (3.50-5.40); RED CELL DISTRIBUTION WIDTH 18.2 % (11.5-14.5); WHITE BLOOD COUNT 7.8 x10^3/uL (4.0-11.0)
--- NOTE | 2017-07-15 10:55 | PN ---
DATE: 07/12/2017 This is a late entry 07/12/2017 covers elements not covered in my initial note, 07/12/2017. SUBJECTIVE: I met with the patient in the evening. Her visited at lunch. She has been anxious, restless, withdrawn, spends much time in her room. She is on rather large doses of Klonopin and we are trying to reduce this since this could be worsening her withdrawal and sedation. She came to the day room and TV lounge, during the day, which was an improvement. I met with her in her room. REVIEW OF SYSTEMS: Ambulation impaired. Usually uses wheelchair. No CV, , pulmonary, eye system symptoms on review. MENTAL STATUS EXAM: Reasonably oriented. Speech, moderate latency, often responses monosyllabic. Abstraction fair, computation impaired, language function intact, attention span short. Mood and affect still somewhat withdrawn. LABORATORY DATA: Reviewed. IMPRESSION: Major depressive disorder with psychotic features in partial remission. Rest unchanged. PLAN: Continue to taper the Klonopin. Make further adjustments as clinically indicated. MAN Karthikeyan RAY MD DR: ROSA/mikey JOB#: [id number] / [id number]
[2017-07-15] MEDS: clonazePAM 1 MG TABLET PO SCH ×2 (12:59→19:37)
[2017-07-15 16:48] VITALS: BP 113/65
[2017-07-15] MEDS: PANTOPRAZOLE 40 MG TABLET. PO SCH (16:52)
--- NOTE | 2017-07-15 18:46 | PN ---
DATE: 07/13/2017 This is a late entry for 07/13/2017 and covers the elements not covered in my initial note of 07/13/2017. SUBJECTIVE: The patient was staffed in the morning and seen individually in the evening. Appetite somewhat poor 30%. She has been somewhat withdrawn, isolative, spends much time in her room, staff encouraging her to get out. Tapering the Klonopin since this could be sedating, her causing her withdrawal partially. REVIEW OF SYSTEMS: Ambulation impaired, in wheelchair. No CV, , pulmonary, eye system symptoms on review. MENTAL STATUS EXAM: Reasonably oriented. Speech, often responses monosyllabic, has some latency. Abstraction fair, computation impaired, language function intact, attention span short. Mood and affect still depressed. LABORATORY DATA: Reviewed. IMPRESSION: Major depressive disorder with psychotic features. PLAN: Continue current psychotropics. Reduce the Klonopin to 0.75 mg from her current 1 mg dosage at 1400 starting on 07/14/2017. The dose at 2100 was reduced from 1 mg to 0.75 mg on 07/12/2017. We will continue to taper this gradually. Maintain the rest unchanged. MAN Karthikeyan RAY MD DR: ROSA/mikey JOB#: [id number] / [id number]
[2017-07-15] MEDS: ATORVASTATIN CALCIUM 20 MG TABLET PO SCH (19:33)
[2017-07-15] MEDS: PATCH REMOVAL. MC SCH (19:49)
--- NOTE | 2017-07-15 22:22 | PDOC ---
Exam Note: Avery Note: Please also refer to the separate dictated note~for this date of service dictated separately.~Patient seen individually. Discussed the patient with Nursing staff reviewed the chart.~Reviewed interim history and current functioning. Reviewed vital signs,~Labs/ Radiology~and current medications noted below. Continue current treatment with the changes noted in the dictated addendum note Assessment: Vital Signs: Vital Signs Date Time Temp Pulse Resp B/P (MAP) Pulse Ox O2 Delivery O2 Flow Rate FiO2 07/15/17 21:37 18 97 Room Air 07/15/17 19:34 99 113/65 07/15/17 16:48 97.6 I&O Intake and Output 07/15/17 07:00 Intake Total 840 ml Balance 840 ml Intake Oral 840 ml Labs: Laboratory Tests Test 07/15/17 07:30 White Blood Count 7.8 x10^3/uL (4.0-11.0) Red Blood Count 2.67 x10^6/uL (3.50-5.40) L Hemoglobin 8.6 g/dL (12.0-15.5) L Hematocrit 26.1 % (36.0-47.0) L Mean Corpuscular Volume 98 fL (79-100) Mean Corpuscular Hemoglobin 32 pg (25-35) Mean Corpuscular Hemoglobin Concent 33 g/dL (31-37) Red Cell Distribution Width 18.2 % (11.5-14.5) H Platelet Count 296 x10^3/uL (140-400) Neutrophils (%) (Auto) 72 % (31-73) Lymphocytes (%) (Auto) 19 % (24-48) L Monocytes (%) (Auto) 7 % (0-9) Eosinophils (%) (Auto) 1 % (0-3) Basophils (%) (Auto) 1 % (0-3) Neutrophils # (Auto) 5.7 x10^3uL (1.8-7.7) Lymphocytes # (Auto) 1.4 x10^3/uL (1.0-4.8) Monocytes # (Auto) 0.5 x10^3/uL (0.0-1.1) Eosinophils # (Auto) 0.1 x10^3/uL (0.0-0.7) Basophils # (Auto) 0.1 x10^3/uL (0.0-0.2) Sodium Level 136 mmol/L (136-145) Potassium Level 4.5 mmol/L (3.5-5.1) Chloride Level 101 mmol/L (98-107) Carbon Dioxide Level 27 mmol/L (21-32) Anion Gap 8 (6-14) Blood Urea Nitrogen 20 mg/dL (7-20) Creatinine 1.3 mg/dL (0.6-1.0) H Estimated GFR (Cockcroft-Gault) 41.1 BUN/Creatinine Ratio 15 (6-20) Glucose Level 101 mg/dL (70-99) H Calcium Level 9.8 mg/dL (8.5-10.1) Total Bilirubin 0.3 mg/dL (0.2-1.0) Aspartate Amino Transferase (AST) 22 U/L (15-37) Alanine Aminotransferase (ALT) 20 U/L (14-59) Alkaline Phosphatase 114 U/L (46-116) Total Protein 6.2 g/dL (6.4-8.2) L Albumin 2.6 g/dL (3.4-5.0) L Albumin/Globulin Ratio 0.7 (1.0-1.7) L Current Medications: Meds: Current Medications Cephalexin HCl (Keflex) 500 mg 1X ONCE PO Last administered on 07/07/17at 22:00 ; Start 07/07/17 at 22:00; Stop 07/07/17 at 22:01; Status DC Clindamycin Palmitate HCl (Cleocin Pediatric) 280 mg 1X ONCE PO ; Start at 23:45; Stop 07/07/17 at 23:46; Status UNV Acetaminophen (Tylenol) 650 mg PRN Q6HRS PRN PO PAIN / TEMP Last administered on 07/13/17at 20:38; Start 07/08/17 at 00:30 Multi-Ingredient Ointment (Analgesic [place]) 1 meme PRN QID PRN TP MUSCLE PAIN; Start 07/08/17 at 00:30 Al Hydroxide/Mg Hydroxide (Mylanta Plus Xs) 15 ml PRN AFTMEALHC PRN PO DYSPEPSIA; Start 07/08/17 at 00:30 Nicotine (Nicoderm Cq 21mg) 1 patch DAILY TD Last administered on 07/15/17at 09: 02; Start 07/08/17 at 09:00 Clonazepam (KlonoPIN) 1 mg TID PO Last administered on 07/08/17 12:12; Start 07/08/17 at 09:00; Stop 07/08/17 at 19:33; Status DC Haloperidol (Haldol) 1 mg BID PO Last administered on 07/10/17 19:29; Start at 09:00; Stop 07/11/17 at 05:30; Status DC Haloperidol (Haldol) 2 mg PRN Q6HRS PRN PO AGITATION; Start 07/08/17 at 00:30; Stop 07/09/17 at 16:30; Status DC Levetiracetam (Keppra) 500 mg BID PO Last administered on 07/15/17 19:33; Start 07/08/17 at 09:00 Citalopram Hydrobromide (CeleXA) 40 mg DAILY PO Last administered on 07/08/17 07:46; Start 07/08/17 at 09:00; Stop 07/08/17 at 19:33; Status DC Aspirin (Aspirin Enteric Coated) 81 mg DAILY PO Last administered on 07/15/17 09:03; Start 07/08/17 at 09:00 Benzonatate (Tessalon Perle) 100 mg PRN TID PRN PO COUGH; Start 07/08/17 at 00: 30 Vitamin D (Vitamin D3) 1,000 unit DAILY PO Last administered on 07/15/17 09:04 ; Start 07/08/17 at 09:00 Enoxaparin Sodium (Lovenox) 40 mg DAILY SQ Last administered on 07/15/17 09:09 ; Start 07/08/17 at 09:00 Ferrous Sulfate (Feosol) 325 mg QODAY PO Last administered on 07/14/17at 10:14; Start 07/08/17 at 09:00 Acetaminophen/ Hydrocodone Bitart (Lortab 5/325) 1 tab PRN Q6HRS PRN PO PAIN Last administered on 07/09/17 12:46; Start 07/08/17 at 00:30; Stop 07/09/17 at 15:24; Status DC Albuterol/ Ipratropium (Duoneb) 3 ml RTBID NEB Last administered on 07/15/17 20:16; Start 07/08/17 at 08:00 Lidocaine (Lidoderm) 1 patch DAILY TP Last administered on 07/15/17 09:10; Start 07/08/17 at 09:00 Lisinopril (Prinivil) 5 mg BID PO Last administered on 07/15/17 19:34; Start 07/08/17 at 09:00 Magnesium Hydroxide (Milk Of Magnesia) 2,400 mg PRN DAILY PRN PO CONSTIPATION; Start 07/08/17 at 00:30 Magnesium Oxide (Magnesium Oxide) 400 mg DAILY PO Last administered on 09:04; Start 07/08/17 at 09:00 Metoprolol Succinate (Toprol Xl) 25 mg DAILY PO Last administered on 07/15/17 09:05; Start 07/08/17 at 09:00 Sodium Biphosphate/ Sodium Phosphate (Fleet Adult) 133 ml PRN 1X PRN RC CONSTIPATION; Start 07/08/17 at 00:30 Pantoprazole Sodium (Protonix) 80 mg DAILYBFRSUP PO Last administered on 16:52; Start 07/08/17 at 17:00 Atorvastatin Calcium (Lipitor) 80 mg QHS PO Last administered on 07/15/17 19: 33; Start 07/08/17 at 21:00 Non-Formulary Medication (Budesonide/ Formoterol Fumarate (Symbicort 160-4.5 Mcg Inhaler)) 2 puff BID IH ; Start 07/08/17 at 09:00; Status UNV Famotidine (Pepcid) 40 mg BID PO Last administered on 07/15/17 19:33; Start at 09:00 Multivitamins/ Calcium (Thera-M Plus) 1 tab DAILY PO Last administered on 09:04; Start 07/08/17 at 09:00 Potassium Chloride (Klor-Con) 10 meq BIDWMEALS PO Last administered on 16:52; Start 07/08/17 at 08:00 Miscellaneous (Lidoderm Patch Removal) 1 ea QHS MC Last administered on 19:49; Start 07/08/17 at 21:00 Clindamycin HCl (Cleocin) 300 mg 1X ONCE PO Last administered on 4/21/18at 00: 43; Start 07/08/17 at 00:45; Stop 07/08/17 at 00:46; Status DC Budesonide (Pulmicort) 0.5 mg RTBID NEB Last administered on 07/15/17at 20:16; Start 07/08/17 at 08:00 Albuterol Sulfate (Ventolin) 2.5 mg PRN Q6HRS PRN NEB SHORTNESS OF BREATH; Start 07/08/17 at 10:00 Bupropion HCl (Wellbutrin Xl) 150 mg DAILY PO ; Start 07/09/17 at 09:00; Stop at 09:00; Status DC Bupropion HCl (Wellbutrin Xl) 300 mg DAILY PO ; Start 07/12/17 at 09:00; Stop at 09:00; Status DC Trazodone HCl (Desyrel) 50 mg PRN QHS PRN PO INSOMNIA Last administered on 07/08at 20:09; Start 07/08/17 at 19:30; Stop 07/09/17 at 16:30; Status DC Clonazepam (KlonoPIN) 0.75 mg DAILY PO Last administered on 07/15/17at 09:08; Start 07/09/17 at 09:00; Stop 07/15/17 at 15:21; Status DC Clonazepam (KlonoPIN) 1 mg BID@1400,2100 PO Last administered on 07/11/17at 19: 09; Start 07/08/17 at 21:00; Stop 07/12/17 at 13:59; Status DC Duloxetine HCl (Cymbalta) 30 mg DAILY PO Last administered on 07/15/17at 09:04; Start 07/09/17 at 09:00 Acetaminophen/ Hydrocodone Bitart (Lortab 5/325) 1 tab Q6H PO Last administered on 07/15/17at 21:37; Start 07/09/17 at 16:00 Trazodone HCl (Desyrel) 100 mg PRN QHS PRN PO INSOMNIA; Start 07/09/17 at 16:30 Aripiprazole (Abilify) 5 mg DAILY PO Last administered on 07/15/17at 09:04; Start 07/10/17 at 09:00 Doxycycline Hyclate (Vibra-Tab) 100 mg BID PO Last administered on 07/15/17 19 :33; Start 07/10/17 at 21:00; Stop 07/17/17 at 20:59 Lactobacillus Rhamnosus (Culturelle) 1 cap BID PO Last administered on at 19:33; Start 07/10/17 at 21:00 Clonazepam (KlonoPIN) 1 mg DAILY@1400 PO Last administered on 07/12/17at 15:02; Start 07/12/17 at 14:00; Stop 07/13/17 at 12:12; Status DC Clonazepam (KlonoPIN) 0.75 mg QHS PO Last administered on 07/15/17at 19:37; Start 07/12/17 at 21:00 Clonazepam (KlonoPIN) 0.75 mg DAILY@1400 PO Last administered on 07/15/17at 12: 59; Start 07/13/17 at 14:00 Clonazepam (KlonoPIN) 0.5 mg DAILY PO ; Start 07/16/17 at 09:00 Active Scripts Active Reported Vitamin D3 (Cholecalciferol (Vitamin D3)) 1,000 Unit Tablet 1,000 Unit PO DAILY Toprol Xl (Metoprolol Succinate) 25 Mg Tab.er.24h 25 Mg PO DAILY Tessalon Perle (Benzonatate) 100 Mg Capsule 100 Mg PO PRN TID PRN Symbicort 160-4.5 Mcg Inhaler (Budesonide/Formoterol Fumarate) 10.2 Gm Hfa.aer.ad 2 Puff IH BID Protonix (Pantoprazole Sodium) 40 Mg Tablet.dr 80 Mg PO DAILYBFRSUP Potassium Chloride 10 Meq Tablet.er 10 Meq PO BID [place] 5-325 Tablet (Hydrocodone Bit/Acetaminophen) 1 Each Tablet 1 Tab PO PRN Q6HRS PRN NICODERM CQ 21mg (Nicotine) 1 Each Patch.td24 1 Patch TD DAILY Aszyq-Wggokqo-Umugcydi Tablet (Multivit-Min/Iron Fum/Folic AC) 1 Each Tablet 1 Tab PO DAILY Milk Of Magnesia (Magnesium Hydroxide) 400 Mg/5 Ml Oral.susp 2,400 Mg PO PRN DAILY PRN Magnesium Oxide 400 Mg Tablet 400 Mg PO DAILY Lisinopril 5 Mg Tablet 5 Mg PO BID Lidocaine 1 Each Adh..patch 1 Patch TP DAILY Keppra (Levetiracetam) 500 Mg Tablet 500 Mg PO BID Duoneb 0.5-3(2.5) Mg/3 Ml (Albuterol/Ipratropium) 3 Ml Ampul.neb 3 Ml NEB BID Haloperidol 2 Mg Tablet 1 Mg PO BID Haloperidol 2 Mg Tablet 2 Mg PO PRN Q6HRS PRN Fleet Enema (Na Phos,M-B/Na Phos,Di-Ba) 133 Ml Enema 133 Ml RC PRN 1X PRN Ferrous Sulfate 325 Mg Tablet 325 Mg PO QODAY Famotidine 40 Mg Tablet 40 Mg PO BID Escitalopram Oxalate 20 Mg Tablet 20 Mg PO DAILY Lovenox (Enoxaparin Sodium) 40 Mg/0.4 Ml Disp.syrin 40 Mg SQ DAILY Clonazepam 1 Mg Tablet 1 Mg PO TID Atorvastatin Calcium 80 Mg Tablet 80 Mg PO QHS Aspir-Low (Aspirin) 81 Mg Tablet.dr 81 Mg PO DAILY Tylenol (Acetaminophen) 325 Mg Tablet 650 Mg PO PRN Q24HRS PRN I have reviewed the current psychotropics carefully including drug interactions. Risk benefit ratio favors no change other than as noted in my dictated progress note. Diagnosis: Problems: (1) Depression (2) Malnutrition (3) Anxiety disorder (4) Major depressive disorder, recurrent episode (5) Mild cognitive disorder CELESTINE RAY MD Jul 15, 2017 22:22
[2017-07-16] MEDS: HYDROcodone/APAP 5/325MG 1 TAB TABLET PO SCH ×4 (03:43→21:50)
[2017-07-16 06:12] VITALS: BP 119/54
[2017-07-16] MEDS: POTASSIUM CHLORIDE 10 MEQ TABLET.ER. PO SCH ×2 (07:44→16:14)
[2017-07-16] MEDS: LACTOBACILLUS RHAMNOSUS GG 1 CAPSULE. PO SCH ×2 (07:45→19:19)
[2017-07-16] MEDS: ASPIRIN ENTERIC COATED 81 MG TABLET.DR. PO SCH (07:45)
[2017-07-16] MEDS: ARIPiprazole 5 MG TABLET PO SCH (07:45)
[2017-07-16] MEDS: FAMOTIDINE 20 MG TABLET PO SCH ×2 (07:46→19:18)
[2017-07-16] MEDS: FERROUS SULFATE 325 MG TABLET. PO SCH (07:46)
[2017-07-16] MEDS: levETIRAcetam 500 MG TABLET PO SCH ×2 (07:46→19:19)
[2017-07-16] MEDS: MAGNESIUM OXIDE 400 MG TABLET PO SCH (07:46)
[2017-07-16] MEDS: DULoxetine HCL 30 MG CAPSULE.DR PO SCH (07:46)
[2017-07-16] MEDS: DOXYCYCLINE HYCLATE 100 MG TABLET PO SCH ×2 (07:48→19:17)
[2017-07-16] MEDS: CHOLECALCIFEROL (VITAMIN D3) 1,000 UNIT TABLET PO SCH (07:48)
[2017-07-16] MEDS: MULTIVITAMIN with MINERAL TABLET. PO SCH (07:48)
[2017-07-16] MEDS: ENOXAPARIN 40 MG/0.4 ML DISP.SYRIN. SQ SCH (07:49)
[2017-07-16] MEDS: NICOTINE 21MG PATCH. TD SCH (07:49)
[2017-07-16] MEDS: LIDOCAINE (700MG/PATCH) PATCH. TP SCH (07:51)
[2017-07-16] MEDS: clonazePAM 0.5 MG TABLET PO SCH (07:52)
[2017-07-16] MEDS: METOPROLOL SUCC 24HR ER 25 MG TAB.ER.24H. PO SCH (07:52)
[2017-07-16] MEDS: LISINOPRIL 5 MG TABLET. PO SCH ×2 (07:53→19:18)
[2017-07-16] MEDS: IPRATRPIUM/ALBUTEROL 0.5/2.5MG 3 ML NEBU. NEB SCH ×2 (11:23→20:37)
[2017-07-16] MEDS: BUDESONIDE 0.5 MG/2 ML NEBU NEB SCH ×2 (11:23→20:37)
[2017-07-16] MEDS: clonazePAM 1 MG TABLET PO SCH (13:45)
[2017-07-16 16:07] VITALS: BP 93/58
[2017-07-16] MEDS: PANTOPRAZOLE 40 MG TABLET. PO SCH (16:14)
[2017-07-16 17:35] VITALS: BP 116/71
[2017-07-16] MEDS: ATORVASTATIN CALCIUM 20 MG TABLET PO SCH (19:18)
[2017-07-16] MEDS: PATCH REMOVAL. MC SCH (19:20)
--- NOTE | 2017-07-16 20:17 | PDOC ---
Exam Note: Avery Note: Please also refer to the separate dictated note~for this date of service dictated separately.~Patient seen individually. Discussed the patient with Nursing staff reviewed the chart.~Reviewed interim history and current functioning. Reviewed vital signs,~Labs/ Radiology~and current medications noted below. Continue current treatment with the changes noted in the dictated addendum note Assessment: Vital Signs: Vital Signs Date Time Temp Pulse Resp B/P (MAP) Pulse Ox O2 Delivery O2 Flow Rate FiO2 07/16/17 19:18 89 116/71 07/16/17 17:35 20 99 07/16/17 17:14 Room Air 07/16/17 16:07 97.4 I&O Intake and Output 07/16/17 07:00 Intake Total 360 ml Balance 360 ml Intake Oral 360 ml # Voids 2 Current Medications: Meds: Current Medications Cephalexin HCl (Keflex) 500 mg 1X ONCE PO Last administered on 07/07/17at 22:00 ; Start 07/07/17 at 22:00; Stop 07/07/17 at 22:01; Status DC Clindamycin Palmitate HCl (Cleocin Pediatric) 280 mg 1X ONCE PO ; Start at 23:45; Stop 07/07/17 at 23:46; Status UNV Acetaminophen (Tylenol) 650 mg PRN Q6HRS PRN PO PAIN / TEMP Last administered on 07/13/17at 20:38; Start 07/08/17 at 00:30 Multi-Ingredient Ointment (Analgesic [place]) 1 meme PRN QID PRN TP MUSCLE PAIN; Start 07/08/17 at 00:30 Al Hydroxide/Mg Hydroxide (Mylanta Plus Xs) 15 ml PRN AFTMEALHC PRN PO DYSPEPSIA; Start 07/08/17 at 00:30 Nicotine (Nicoderm Cq 21mg) 1 patch DAILY TD Last administered on 07/16/17at 07: 49; Start 07/08/17 at 09:00 Clonazepam (KlonoPIN) 1 mg TID PO Last administered on 07/08/17at 12:12; Start 07/08/17 at 09:00; Stop 07/08/17 at 19:33; Status DC Haloperidol (Haldol) 1 mg BID PO Last administered on 07/10/17at 19:29; Start at 09:00; Stop 07/11/17 at 05:30; Status DC Haloperidol (Haldol) 2 mg PRN Q6HRS PRN PO AGITATION; Start 07/08/17 at 00:30; Stop 07/09/17 at 16:30; Status DC Levetiracetam (Keppra) 500 mg BID PO Last administered on 07/16/17 19:19; Start 07/08/17 at 09:00 Citalopram Hydrobromide (CeleXA) 40 mg DAILY PO Last administered on 07/08/17 07:46; Start 07/08/17 at 09:00; Stop 07/08/17 at 19:33; Status DC Aspirin (Aspirin Enteric Coated) 81 mg DAILY PO Last administered on 07/16/17 07:45; Start 07/08/17 at 09:00 Benzonatate (Tessalon Perle) 100 mg PRN TID PRN PO COUGH; Start 07/08/17 at 00: 30 Vitamin D (Vitamin D3) 1,000 unit DAILY PO Last administered on 07/16/17 07:48 ; Start 07/08/17 at 09:00 Enoxaparin Sodium (Lovenox) 40 mg DAILY SQ Last administered on 07/16/17 07:49 ; Start 07/08/17 at 09:00 Ferrous Sulfate (Feosol) 325 mg QODAY PO Last administered on 07/16/17 07:46; Start 07/08/17 at 09:00 Acetaminophen/ Hydrocodone Bitart (Lortab 5/325) 1 tab PRN Q6HRS PRN PO PAIN Last administered on 07/09/17 12:46; Start 07/08/17 at 00:30; Stop 07/09/17 at 15:24; Status DC Albuterol/ Ipratropium (Duoneb) 3 ml RTBID NEB Last administered on 07/16/17 11:23; Start 07/08/17 at 08:00 Lidocaine (Lidoderm) 1 patch DAILY TP Last administered on 07/16/17 07:51; Start 07/08/17 at 09:00 Lisinopril (Prinivil) 5 mg BID PO Last administered on 07/16/17 19:18; Start 07/08/17 at 09:00 Magnesium Hydroxide (Milk Of Magnesia) 2,400 mg PRN DAILY PRN PO CONSTIPATION; Start 07/08/17 at 00:30 Magnesium Oxide (Magnesium Oxide) 400 mg DAILY PO Last administered on 07:46; Start 07/08/17 at 09:00 Metoprolol Succinate (Toprol Xl) 25 mg DAILY PO Last administered on 07/16/17 07:52; Start 07/08/17 at 09:00 Sodium Biphosphate/ Sodium Phosphate (Fleet Adult) 133 ml PRN 1X PRN RC CONSTIPATION; Start 07/08/17 at 00:30 Pantoprazole Sodium (Protonix) 80 mg DAILYBFRSUP PO Last administered on 16:14; Start 07/08/17 at 17:00 Atorvastatin Calcium (Lipitor) 80 mg QHS PO Last administered on 07/16/17 19: 18; Start 07/08/17 at 21:00 Non-Formulary Medication (Budesonide/ Formoterol Fumarate (Symbicort 160-4.5 Mcg Inhaler)) 2 puff BID IH ; Start 07/08/17 at 09:00; Status UNV Famotidine (Pepcid) 40 mg BID PO Last administered on 07/16/17 19:18; Start at 09:00 Multivitamins/ Calcium (Thera-M Plus) 1 tab DAILY PO Last administered on 07:48; Start 07/08/17 at 09:00 Potassium Chloride (Klor-Con) 10 meq BIDWMEALS PO Last administered on 16:14; Start 07/08/17 at 08:00 Miscellaneous (Lidoderm Patch Removal) 1 ea QHS MC Last administered on 19:20; Start 07/08/17 at 21:00 Clindamycin HCl (Cleocin) 300 mg 1X ONCE PO Last administered on 07/08/17 00: 43; Start 07/08/17 at 00:45; Stop 07/08/17 at 00:46; Status DC Budesonide (Pulmicort) 0.5 mg RTBID NEB Last administered on 07/16/17 11:23; Start 07/08/17 at 08:00 Albuterol Sulfate (Ventolin) 2.5 mg PRN Q6HRS PRN NEB SHORTNESS OF BREATH; Start 07/08/17 at 10:00 Bupropion HCl (Wellbutrin Xl) 150 mg DAILY PO ; Start 07/09/17 at 09:00; Stop at 09:00; Status DC Bupropion HCl (Wellbutrin Xl) 300 mg DAILY PO ; Start 07/12/17 at 09:00; Stop at 09:00; Status DC Trazodone HCl (Desyrel) 50 mg PRN QHS PRN PO INSOMNIA Last administered on 07/08at 20:09; Start 07/08/17 at 19:30; Stop 07/09/17 at 16:30; Status DC Clonazepam (KlonoPIN) 0.75 mg DAILY PO Last administered on 07/15/17at 09:08; Start 07/09/17 at 09:00; Stop 07/15/17 at 15:21; Status DC Clonazepam (KlonoPIN) 1 mg BID@1400,2100 PO Last administered on 07/11/17at 19: 09; Start 07/08/17 at 21:00; Stop 07/12/17 at 13:59; Status DC Duloxetine HCl (Cymbalta) 30 mg DAILY PO Last administered on 07/16/17at 07:46; Start 07/09/17 at 09:00; Stop 07/16/17 at 18:57; Status DC Acetaminophen/ Hydrocodone Bitart (Lortab 5/325) 1 tab Q6H PO Last administered on 07/16/17at 16:14; Start 07/09/17 at 16:00 Trazodone HCl (Desyrel) 100 mg PRN QHS PRN PO INSOMNIA; Start 07/09/17 at 16:30 Aripiprazole (Abilify) 5 mg DAILY PO Last administered on 07/16/17at 07:45; Start 07/10/17 at 09:00 Doxycycline Hyclate (Vibra-Tab) 100 mg BID PO Last administered on 07/16/17at 19 :17; Start 07/10/17 at 21:00; Stop 07/17/17 at 20:59 Lactobacillus Rhamnosus (Culturelle) 1 cap BID PO Last administered on at 19:19; Start 07/10/17 at 21:00 Clonazepam (KlonoPIN) 1 mg DAILY@1400 PO Last administered on 07/12/17at 15:02; Start 07/12/17 at 14:00; Stop 07/13/17 at 12:12; Status DC Clonazepam (KlonoPIN) 0.75 mg QHS PO Last administered on 07/15/17at 19:37; Start 07/12/17 at 21:00; Stop 07/16/17 at 18:21; Status DC Clonazepam (KlonoPIN) 0.75 mg DAILY@1400 PO Last administered on 07/16/17at 13: 45; Start 07/13/17 at 14:00 Clonazepam (KlonoPIN) 0.5 mg DAILY PO Last administered on 07/16/17at 07:52; Start 07/16/17 at 09:00 Clonazepam (KlonoPIN) 0.5 mg QHS PO ; Start 07/20/17 at 09:00 Duloxetine HCl (Cymbalta) 20 mg DAILY PO ; Start 07/17/17 at 09:00 Active Scripts Active Reported Vitamin D3 (Cholecalciferol (Vitamin D3)) 1,000 Unit Tablet 1,000 Unit PO DAILY Toprol Xl (Metoprolol Succinate) 25 Mg Tab.er.24h 25 Mg PO DAILY Tessalon Perle (Benzonatate) 100 Mg Capsule 100 Mg PO PRN TID PRN Symbicort 160-4.5 Mcg Inhaler (Budesonide/Formoterol Fumarate) 10.2 Gm Hfa.aer.ad 2 Puff IH BID Protonix (Pantoprazole Sodium) 40 Mg Tablet.dr 80 Mg PO DAILYBFRSUP Potassium Chloride 10 Meq Tablet.er 10 Meq PO BID [place] 5-325 Tablet (Hydrocodone Bit/Acetaminophen) 1 Each Tablet 1 Tab PO PRN Q6HRS PRN NICODERM CQ 21mg (Nicotine) 1 Each Patch.td24 1 Patch TD DAILY Ntmxy-Ggdhnzg-Sfwbqdrl Tablet (Multivit-Min/Iron Fum/Folic AC) 1 Each Tablet 1 Tab PO DAILY Milk Of Magnesia (Magnesium Hydroxide) 400 Mg/5 Ml Oral.susp 2,400 Mg PO PRN DAILY PRN Magnesium Oxide 400 Mg Tablet 400 Mg PO DAILY Lisinopril 5 Mg Tablet 5 Mg PO BID Lidocaine 1 Each Adh..patch 1 Patch TP DAILY Keppra (Levetiracetam) 500 Mg Tablet 500 Mg PO BID Duoneb 0.5-3(2.5) Mg/3 Ml (Albuterol/Ipratropium) 3 Ml Ampul.neb 3 Ml NEB BID Haloperidol 2 Mg Tablet 1 Mg PO BID Haloperidol 2 Mg Tablet 2 Mg PO PRN Q6HRS PRN Fleet Enema (Na Phos,M-B/Na Phos,Di-Ba) 133 Ml Enema 133 Ml RC PRN 1X PRN Ferrous Sulfate 325 Mg Tablet 325 Mg PO QODAY Famotidine 40 Mg Tablet 40 Mg PO BID Escitalopram Oxalate 20 Mg Tablet 20 Mg PO DAILY Lovenox (Enoxaparin Sodium) 40 Mg/0.4 Ml Disp.syrin 40 Mg SQ DAILY Clonazepam 1 Mg Tablet 1 Mg PO TID Atorvastatin Calcium 80 Mg Tablet 80 Mg PO QHS Aspir-Low (Aspirin) 81 Mg Tablet.dr 81 Mg PO DAILY Tylenol (Acetaminophen) 325 Mg Tablet 650 Mg PO PRN Q24HRS PRN I have reviewed the current psychotropics carefully including drug interactions. Risk benefit ratio favors no change other than as noted in my dictated progress note. Diagnosis: Problems: (1) Depression (2) Malnutrition (3) Anxiety disorder (4) Major depressive disorder, recurrent episode (5) Mild cognitive disorder CELESTINE RAY MD Jul 16, 2017 20:17
--- NOTE | 2017-07-16 21:34 | PN ---
DATE: 07/16/2017 This late entry of 07/14/2017 covers elements not covered in my initial note 07/14/2017. Met with the patient in the evening. The patient remains withdrawn, isolated, spends much time in her room. She has been encouraged by nursing staff to come out. She refused physical therapy, occupational therapy and wants her sister to come discharge her prematurely but the sister is refusing to come since the patient seems to need continued adjustments of her psychotropics and remains depressed. She did work with physical therapy later in the day. Klonopin is being tapered to reduce the daytime sedation. She was somewhat hypotensive earlier, ambulated to the bathroom with a walker herself, slept 6 hours previous evening. REVIEW OF SYSTEMS: Positive for tiredness. No CV, , pulmonary, eye system symptoms on review. MENTAL STATUS EXAM: Oriented to herself and situation. Speech moderate latency, often responses monosyllabic. Abstraction fair, computation impaired, language function intact, attention span short. Mood and affect, somewhat depressed, withdrawn, less so than before. LABORATORY DATA: Reviewed. IMPRESSION: Unchanged from initial note. PLAN: Continue current psychotropics and taper the Klonopin. May consider increasing Cymbalta. MAN Karthikeyan RAY MD DR: ROSA/mikey JOB#: [id number] / [id number]
[2017-07-16] MEDS: ACETAMINOPHEN 325 MG TABLET PO PRN (23:30)
[2017-07-17] MEDS ORDERED: CLON0.5T3 PO ×2 (01:04)
[2017-07-17] MEDS ORDERED: DULO20CA50 PO (01:08)
[2017-07-17] MEDS ORDERED: TRAZ-90 PO (01:10)
[2017-07-17] MEDS ORDERED: ARIP5TAB13 PO (01:12)
[2017-07-17] MEDS ORDERED: LACT1CAP21 PO (01:15)
[2017-07-17] MEDS ORDERED: MAG30ORA2 PO (01:18)
[2017-07-17] MEDS ORDERED: METH29OI TP (01:18)
[2017-07-17] MEDS: HYDROcodone/APAP 5/325MG 1 TAB TABLET PO SCH ×2 (04:43→11:20)
[2017-07-17 06:07] VITALS: BP 107/67
--- NOTE | 2017-07-17 08:53 | RAD ---
CT head without intravenous contrast History: Fall July 16, 2017. Posterior right head pain. Anticoagulated. Comparison: None. Technique: Axial images are obtained of the head from the skull base through the vertex without IV contrast. Exposure: One or more of the following individualized dose reduction techniques were utilized for this examination: 1. Automated exposure control 2. Adjustment of the mA and/or kV according to patient size 3. Use of iterative reconstruction technique Findings: The ventricles are appropriate in size, shape, and location for the patient's age. No obvious intracranial mass, mass-effect, midline shift, hemorrhage or obvious acute infarction is identified. Basilar cisterns are patent. Mild, patchy, nonspecific white matter low-attenuation is seen, probably from chronic microvascular ischemic disease. Bone windows demonstrate no acute calvarial abnormality. The visualized paranasal sinuses appear clear. Impression: 1. No acute intracranial process. Please note that CT can be relatively insensitive to acute ischemic infarction for up to 24 hours after symptom onset. 2. Nonspecific white matter changes, probably from chronic microvascular ischemic disease. Electronically signed by: Kwaku Catalan MD (07/17/2017 8:49 AM) [id number]
[2017-07-17] MEDS ORDERED: DULoxetine HCL 20 MG CAPSULE.DR PO SCH (09:00)
[2017-07-17] MEDS: ARIPiprazole 5 MG TABLET PO SCH (09:08)
[2017-07-17] MEDS: ASPIRIN ENTERIC COATED 81 MG TABLET.DR. PO SCH (09:08)
[2017-07-17] MEDS: MULTIVITAMIN with MINERAL TABLET. PO SCH (09:08)
[2017-07-17] MEDS: levETIRAcetam 500 MG TABLET PO SCH (09:08)
[2017-07-17] MEDS: CHOLECALCIFEROL (VITAMIN D3) 1,000 UNIT TABLET PO SCH (09:08)
[2017-07-17] MEDS: FAMOTIDINE 20 MG TABLET PO SCH (09:08)
[2017-07-17] MEDS: MAGNESIUM OXIDE 400 MG TABLET PO SCH (09:08)
[2017-07-17] MEDS: DOXYCYCLINE HYCLATE 100 MG TABLET PO SCH (09:08)
[2017-07-17] MEDS: METOPROLOL SUCC 24HR ER 25 MG TAB.ER.24H. PO SCH (09:09)
[2017-07-17] MEDS: clonazePAM 0.5 MG TABLET PO SCH (09:09)
[2017-07-17] MEDS: FERROUS SULFATE 325 MG TABLET. PO SCH (09:09)
[2017-07-17] MEDS: LACTOBACILLUS RHAMNOSUS GG 1 CAPSULE. PO SCH (09:09)
[2017-07-17] MEDS: POTASSIUM CHLORIDE 10 MEQ TABLET.ER. PO SCH (09:09)
[2017-07-17 09:10] VITALS: BP 107/67
[2017-07-17] MEDS: ENOXAPARIN 40 MG/0.4 ML DISP.SYRIN. SQ SCH (09:10)
[2017-07-17] MEDS: NICOTINE 21MG PATCH. TD SCH (09:10)
[2017-07-17] MEDS: LISINOPRIL 5 MG TABLET. PO SCH (09:10)
[2017-07-17] MEDS: LIDOCAINE (700MG/PATCH) PATCH. TP SCH (09:14)
[2017-07-17] MEDS: IPRATRPIUM/ALBUTEROL 0.5/2.5MG 3 ML NEBU. NEB SCH (10:28)
[2017-07-17] MEDS: BUDESONIDE 0.5 MG/2 ML NEBU NEB SCH (10:29)
--- NOTE | 2017-07-17 21:24 | PDOC ---
Exam Note: Avery Note: Please also refer to the separate dictated note~for this date of service dictated separately.~Patient seen individually. Discussed the patient with Nursing staff reviewed the chart.~Reviewed interim history and current functioning. Reviewed vital signs,~Labs/ Radiology~and current medications noted below. Continue current treatment with the changes noted in the dictated addendum note Assessment: Vital Signs: Vital Signs Date Time Temp Pulse Resp B/P (MAP) Pulse Ox O2 Delivery O2 Flow Rate FiO2 07/17/17 12:30 96 Room Air 07/17/17 09:10 80 107/67 07/17/17 06:07 97.5 18 I&O Intake and Output 07/17/17 07:00 Intake Total 840 ml Balance 840 ml Intake Oral 840 ml Current Medications: Meds: Current Medications Cephalexin HCl (Keflex) 500 mg 1X ONCE PO Last administered on 07/07/17at 22:00 ; Start 07/07/17 at 22:00; Stop 07/07/17 at 22:01; Status DC Clindamycin Palmitate HCl (Cleocin Pediatric) 280 mg 1X ONCE PO ; Start at 23:45; Stop 07/07/17 at 23:46; Status UNV Acetaminophen (Tylenol) 650 mg PRN Q6HRS PRN PO PAIN / TEMP Last administered on 07/16/17at 23:30; Start 07/08/17 at 00:30; Stop 07/17/17 at 14:53; Status DC Multi-Ingredient Ointment (Analgesic Sullivan) 1 yarely PRN QID PRN TP MUSCLE PAIN; Start 07/08/17 at 00:30; Stop 07/17/17 at 14:53; Status DC Al Hydroxide/Mg Hydroxide (Mylanta Plus Xs) 15 ml PRN AFTMEALHC PRN PO DYSPEPSIA; Start 07/08/17 at 00:30; Stop 07/17/17 at 14:53; Status DC Nicotine (Nicoderm Cq 21mg) 1 patch DAILY TD Last administered on 07/17/17at 09: 10; Start 07/08/17 at 09:00; Stop 07/17/17 at 14:53; Status DC Clonazepam (KlonoPIN) 1 mg TID PO Last administered on 07/08/17at 12:12; Start 07/08/17 at 09:00; Stop 07/08/17 at 19:33; Status DC Haloperidol (Haldol) 1 mg BID PO Last administered on 07/10/17at 19:29; Start at 09:00; Stop 07/11/17 at 05:30; Status DC Haloperidol (Haldol) 2 mg PRN Q6HRS PRN PO AGITATION; Start 07/08/17 at 00:30; Stop 07/09/17 at 16:30; Status DC Levetiracetam (Keppra) 500 mg BID PO Last administered on 07/17/17at 09:08; Start 07/08/17 at 09:00; Stop 07/17/17 at 14:54; Status DC Citalopram Hydrobromide (CeleXA) 40 mg DAILY PO Last administered on 07/08/17at 07:46; Start 07/08/17 at 09:00; Stop 07/08/17 at 19:33; Status DC Aspirin (Aspirin Enteric Coated) 81 mg DAILY PO Last administered on 07/17/17at 09:08; Start 07/08/17 at 09:00; Stop 07/17/17 at 14:54; Status DC Benzonatate (Tessalon Perle) 100 mg PRN TID PRN PO COUGH; Start 07/08/17 at 00: 30; Stop 07/17/17 at 14:54; Status DC Vitamin D (Vitamin D3) 1,000 unit DAILY PO Last administered on 07/17/17 09:08 ; Start 07/08/17 at 09:00; Stop 07/17/17 at 14:54; Status DC Enoxaparin Sodium (Lovenox) 40 mg DAILY SQ Last administered on 07/17/17at 09:10 ; Start 07/08/17 at 09:00; Stop 07/17/17 at 14:54; Status DC Ferrous Sulfate (Feosol) 325 mg QODAY PO Last administered on 07/17/17at 09:09; Start 07/08/17 at 09:00; Stop 07/17/17 at 14:54; Status DC Acetaminophen/ Hydrocodone Bitart (Lortab 5/325) 1 tab PRN Q6HRS PRN PO PAIN Last administered on 07/09/17at 12:46; Start 07/08/17 at 00:30; Stop 07/09/17 at 15:24; Status DC Albuterol/ Ipratropium (Duoneb) 3 ml RTBID NEB Last administered on 07/17/17at 10:28; Start 07/08/17 at 08:00; Stop 07/17/17 at 14:54; Status DC Lidocaine (Lidoderm) 1 patch DAILY TP Last administered on 07/17/17at 09:14; Start 07/08/17 at 09:00; Stop 07/17/17 at 14:54; Status DC Lisinopril (Prinivil) 5 mg BID PO Last administered on 07/17/17at 09:10; Start 07/08/17 at 09:00; Stop 07/17/17 at 14:54; Status DC Magnesium Hydroxide (Milk Of Magnesia) 2,400 mg PRN DAILY PRN PO CONSTIPATION; Start 07/08/17 at 00:30; Stop 07/17/17 at 14:54; Status DC Magnesium Oxide (Magnesium Oxide) 400 mg DAILY PO Last administered on at 09:08; Start 07/08/17 at 09:00; Stop 07/17/17 at 14:54; Status DC Metoprolol Succinate (Toprol Xl) 25 mg DAILY PO Last administered on 07/17/17at 09:09; Start 07/08/17 at 09:00; Stop 07/17/17 at 14:54; Status DC Sodium Biphosphate/ Sodium Phosphate (Fleet Adult) 133 ml PRN 1X PRN RC CONSTIPATION; Start 07/08/17 at 00:30; Stop 07/17/17 at 14:54; Status DC Pantoprazole Sodium (Protonix) 80 mg DAILYBFRSUP PO Last administered on at 16:14; Start 07/08/17 at 17:00; Stop 07/17/17 at 14:54; Status DC Atorvastatin Calcium (Lipitor) 80 mg QHS PO Last administered on 07/16/17at 19: 18; Start 07/08/17 at 21:00; Stop 07/17/17 at 14:54; Status DC Non-Formulary Medication (Budesonide/ Formoterol Fumarate (Symbicort 160-4.5 Mcg Inhaler)) 2 puff BID IH ; Start 07/08/17 at 09:00; Status UNV Famotidine (Pepcid) 40 mg BID PO Last administered on 07/17/17at 09:08; Start at 09:00; Stop 07/17/17 at 14:54; Status DC Multivitamins/ Calcium (Thera-M Plus) 1 tab DAILY PO Last administered on at 09:08; Start 07/08/17 at 09:00; Stop 07/17/17 at 14:54; Status DC Potassium Chloride (Klor-Con) 10 meq BIDWMEALS PO Last administered on at 09:09; Start 07/08/17 at 08:00; Stop 07/17/17 at 14:54; Status DC Miscellaneous (Lidoderm Patch Removal) 1 ea QHS MC Last administered on at 19:20; Start 07/08/17 at 21:00; Stop 07/17/17 at 14:54; Status DC Clindamycin HCl (Cleocin) 300 mg 1X ONCE PO Last administered on 07/08/17at 00: 43; Start 07/08/17 at 00:45; Stop 07/08/17 at 00:46; Status DC Budesonide (Pulmicort) 0.5 mg RTBID NEB Last administered on 07/17/17at 10:29; Start 07/08/17 at 08:00; Stop 07/17/17 at 14:54; Status DC Albuterol Sulfate (Ventolin) 2.5 mg PRN Q6HRS PRN NEB SHORTNESS OF BREATH; Start 07/08/17 at 10:00; Stop 07/17/17 at 14:54; Status DC Bupropion HCl (Wellbutrin Xl) 150 mg DAILY PO ; Start 07/09/17 at 09:00; Stop at 09:00; Status DC Bupropion HCl (Wellbutrin Xl) 300 mg DAILY PO ; Start 07/12/17 at 09:00; Stop at 09:00; Status DC Trazodone HCl (Desyrel) 50 mg PRN QHS PRN PO INSOMNIA Last administered on 07/08at 20:09; Start 07/08/17 at 19:30; Stop 07/09/17 at 16:30; Status DC Clonazepam (KlonoPIN) 0.75 mg DAILY PO Last administered on 07/15/17at 09:08; Start 07/09/17 at 09:00; Stop 07/15/17 at 15:21; Status DC Clonazepam (KlonoPIN) 1 mg BID@1400,2100 PO Last administered on 07/11/17at 19: 09; Start 07/08/17 at 21:00; Stop 07/12/17 at 13:59; Status DC Duloxetine HCl (Cymbalta) 30 mg DAILY PO Last administered on 07/16/17at 07:46; Start 07/09/17 at 09:00; Stop 07/16/17 at 18:57; Status DC Acetaminophen/ Hydrocodone Bitart (Lortab 5/325) 1 tab Q6H PO Last administered on 07/17/17at 11:20; Start 07/09/17 at 16:00; Stop 07/17/17 at 14:54 ; Status DC Trazodone HCl (Desyrel) 100 mg PRN QHS PRN PO INSOMNIA; Start 07/09/17 at 16:30 ; Stop 07/17/17 at 14:54; Status DC Aripiprazole (Abilify) 5 mg DAILY PO Last administered on 07/17/17at 09:08; Start 07/10/17 at 09:00; Stop 07/17/17 at 14:54; Status DC Doxycycline Hyclate (Vibra-Tab) 100 mg BID PO Last administered on 07/17/17 09 :08; Start 07/10/17 at 21:00; Stop 07/17/17 at 14:54; Status DC Lactobacillus Rhamnosus (Culturelle) 1 cap BID PO Last administered on at 09:09; Start 07/10/17 at 21:00; Stop 07/17/17 at 14:54; Status DC Clonazepam (KlonoPIN) 1 mg DAILY@1400 PO Last administered on 07/12/17at 15:02; Start 07/12/17 at 14:00; Stop 07/13/17 at 12:12; Status DC Clonazepam (KlonoPIN) 0.75 mg QHS PO Last administered on 07/15/17at 19:37; Start 07/12/17 at 21:00; Stop 07/16/17 at 18:21; Status DC Clonazepam (KlonoPIN) 0.75 mg DAILY@1400 PO Last administered on 07/16/17at 13: 45; Start 07/13/17 at 14:00; Stop 07/17/17 at 14:54; Status DC Clonazepam (KlonoPIN) 0.5 mg DAILY PO Last administered on 07/17/17at 09:09; Start 07/16/17 at 09:00; Stop 07/17/17 at 14:54; Status DC Clonazepam (KlonoPIN) 0.5 mg QHS PO ; Start 07/20/17 at 09:00; Stop 07/20/17 at 09 :00; Status DC Duloxetine HCl (Cymbalta) 20 mg DAILY PO Last administered on 07/17/17at 09:13; Start 07/17/17 at 09:00; Stop 07/17/17 at 14:54; Status DC Active Scripts Active Reported Analgesic Sullivan (Methyl Salicylate/Menthol) 28 Gm Oint...g. 1 Yarely TP PRN QID PRN Mag-Al Plus Xs Suspension (Mag Hydrox/Al Hydrox/Simeth) 30 Ml Oral.susp 15 Ml PO PRN AFTMEALHC PRN Culturelle (Lactobacillus Rhamnosus Gg) 1 Each Capsule 1 Cap PO BID Abilify (Aripiprazole) 5 Mg Tablet 5 Mg PO DAILY Trazodone Hcl 100 Mg Tablet 100 Mg PO PRN QHS PRN Cymbalta (Duloxetine Hcl) 20 Mg Capsule.dr 20 Mg PO DAILY Clonazepam 0.5 Mg Tablet 0.75 Mg PO DAILY@1400 Clonazepam 0.5 Mg Tablet 0.5 Mg PO BID Vitamin D3 (Cholecalciferol (Vitamin D3)) 1,000 Unit Tablet 1,000 Unit PO DAILY Toprol Xl (Metoprolol Succinate) 25 Mg Tab.er.24h 25 Mg PO DAILY Tessalon Perle (Benzonatate) 100 Mg Capsule 100 Mg PO PRN TID PRN Symbicort 160-4.5 Mcg Inhaler (Budesonide/Formoterol Fumarate) 10.2 Gm Hfa.aer.ad 2 Puff IH BID Protonix (Pantoprazole Sodium) 40 Mg Tablet.dr 80 Mg PO DAILYBFRSUP Potassium Chloride 10 Meq Tablet.er 10 Meq PO BIDWMEALS Marshall 5-325 Tablet (Hydrocodone Bit/Acetaminophen) 1 Each Tablet 1 Tab PO PRN Q6HRS PRN NICODERM CQ 21mg (Nicotine) 1 Each Patch.td24 1 Patch TD DAILY Mnrah-Isitkjm-Rjhlcqso Tablet (Multivit-Min/Iron Fum/Folic AC) 1 Each Tablet 1 Tab PO DAILY Milk Of Magnesia (Magnesium Hydroxide) 400 Mg/5 Ml Oral.susp 2,400 Mg PO PRN DAILY PRN Magnesium Oxide 400 Mg Tablet 400 Mg PO DAILY Lisinopril 5 Mg Tablet 5 Mg PO BID Lidocaine 1 Each Adh..patch 1 Patch TP DAILY Keppra (Levetiracetam) 500 Mg Tablet 500 Mg PO BID Duoneb 0.5-3(2.5) Mg/3 Ml (Albuterol/Ipratropium) 3 Ml Ampul.neb 3 Ml NEB BID Fleet Enema (Na Phos,M-B/Na Phos,Di-Ba) 133 Ml Enema 133 Ml RC PRN 1X PRN Ferrous Sulfate 325 Mg Tablet 325 Mg PO QODAY Famotidine 40 Mg Tablet 40 Mg PO BID Lovenox (Enoxaparin Sodium) 40 Mg/0.4 Ml Disp.syrin 40 Mg SQ DAILY Atorvastatin Calcium 80 Mg Tablet 80 Mg PO QHS Aspir-Low (Aspirin) 81 Mg Tablet. 81 Mg PO DAILY Tylenol (Acetaminophen) 325 Mg Tablet 650 Mg PO PRN Q24HRS PRN I have reviewed the current psychotropics carefully including drug interactions. Risk benefit ratio favors no change other than as noted in my dictated progress note. Diagnosis: Problems: (1) Anxiety disorder (2) Major depressive disorder, recurrent episode (3) Mild cognitive disorder CELESTINE RAY MD Jul 17, 2017 21:24
--- NOTE | 2017-07-18 03:36 | PN ---
DATE: 07/16/2017 This is a late entry of 07/16/2017 covers elements not covered in my initial note of 07/16/2017. SUBJECTIVE: I met with the patient in the evening. The patient slept 8-1/2 hours, remains somewhat withdrawn, spends much time in her room. Dr. Bai did examine the incision on her right hip. Nothing else was recommended for now. Still somewhat withdrawn, but coming out a little bit more than before. REVIEW OF SYSTEMS: Ambulation impaired. No CV, , pulmonary, eye, ENT system symptoms on review. MENTAL STATUS EXAM: Oriented to herself and situation. Speech moderate latency, often responses monosyllabic. Abstraction fair, computation impaired, language function intact. Mood and affect somewhat withdrawn, less so than before. IMPRESSION: Major depressive disorder with psychotic features; anxiety disorder, unspecified. PLAN: Increase Cymbalta to 50 mg a day, Klonopin is currently 0.75 mg at 1400 and at bedtime and starting on 07/20/2017, we will reduce the bedtime dosage down to 0.5 mg. Continue with the 0.5 mg daily in the morning. Continue rest unchanged per initial note. MAN Karthikeyan RAY MD DR: ROSA/mikey JOB#: [id number] / [id number]
--- NOTE | 2017-07-18 03:58 | PN ---
DATE: 07/15/2017 PSYCHIATRIC PROGRESS NOTE This is a late entry of 07/15/2017, covers elements not covered in my initial note of 07/15/2017. SUBJECTIVE: I met with the patient in the evening. The patient has been up and about a little bit more, was in the day room until lunch. She stayed up until after lunch. She is frequently staying up because she wants the pain medications, slept 7-1/4 hours previous evening. Appears more patience, likely less depressed. REVIEW OF SYSTEMS: Ambulation impaired. No CV, , pulmonary, eye, ENT system symptoms on review. MENTAL STATUS EXAM: Oriented to herself and situation. Speech has some latency, coherent. Abstraction fair, computation impaired, language function intact, attention span short. Mood and affect still somewhat withdrawn, but showing improvement. LABORATORY DATA: Reviewed. IMPRESSION: Unchanged from initial note. PLAN: Reduce the morning Klonopin from 0.75 mg to 0.5 mg. Continue Rest unchanged. Continue to taper the Klonopin. MAN Karthikeyan RAY MD DR: ROSA/mikey JOB#: [id number] / [id number]
--- NOTE | 2017-07-18 19:36 | DS ---
DATE OF DISCHARGE: 07/17/2017 DISCHARGE SUMMARY AND PSYCHIATRIC PROGRESS NOTE This is a late entry of date of service 07/17/2017 covers elements not covered in my initial note of 07/17/2017. REASON FOR ADMISSION: Please refer to the admission history for details. Briefly, the patient is a 67-year-old female referred to us from [facility] by Dr. Marie Cortez, her primary care physician on account of worsening symptoms of depression, refusing to get out of bed or do any therapy as part of her rehabilitation. She had a decreased appetite, increased withdrawal, refusing to eat and weight loss. She had failed outpatient psychiatric interventions resulting in this referral. SIGNIFICANT FINDINGS AND CLINICAL COURSE: Following admission, the patient was seen daily individually by myself from a psychiatric standpoint, medical followup per Dr. Wilkinson/Dr Bai. The patient did have UTI and was started on doxycycline. She is extremely depressed, withdrawn. She was on 1 mg Klonopin 3 times a day, which was gradually reduced down to 0.5 mg in the morning, 0.75 mg at 1400 with a plan to reduce the bedtime dosage from 0.75 mg to 0.5 mg on 07/20/2017 and further gradual taper off the Klonopin thereafter back at the longterm till it is discontinued. Additionally, she was started on Cymbalta as an antidepressant at 30 mg a day, increasing to 60 mg a day and Abilify 5 mg a day to augment the Cymbalta. Trazodone was used p.r.n. She remained on Keppra 500 b.i.d. for her seizure disorder. Gradually mood appeared to improve. She was still withdrawn in her room, but less so than before. No suicidal or homicidal ideation prior to discharge and appetite was improved. CONDITION AT DISCHARGE: Improved prior to discharge on 07/17/2017. REVIEW OF SYSTEMS: Ambulation impaired, in wheelchair. No CV, , pulmonary, eye system symptoms on review. MENTAL STATUS EXAM: Reasonably oriented. Speech coherent, has some latency. Abstraction fair, computation impaired, language function intact. Mood and affect showing improvement, still withdrawn, but improved. LABORATORY DATA: Labs reviewed. No suicidal or homicidal ideation prior to discharge. FINAL DIAGNOSES: Major depressive disorder, recurrent, severe, in partial remission; anxiety disorder, unspecified; impulse control disorder, unspecified. Rest unchanged from admission. DISCHARGE MEDICATIONS: Please refer to the MRAD with a gradual taper and discontinuation ultimately of the Klonopin to be done at the longterm. Outpatient psychiatric and medical followup at the longterm. Time for discharge day management is greater than 30 minutes. MAN Karthikeyan RAY MD DR: ROSA/mikey JOB#: [id number] / [id number]
[2017-07-20] MEDS ORDERED: clonazePAM 0.5 MG TABLET PO SCH (09:00)
== END 2017-07-17 13:40 | disposition home or self-care (01) | DRG 885 ==
LOC: ER 19:57 → GEROPSY 23:55
PROVIDERS: ADMIT Psychiatry & Neurology Psychiatry; ATTEND Psychiatry & Neurology Psychiatry
DX: F33.3 Major depressive disorder, recurrent, severe with psychotic symptoms (principal); E43 Unspecified severe protein-calorie malnutrition; F03.90 Unspecified dementia, unspecified severity, without behavioral disturbance, psychotic disturbance, mood disturbance, and anxiety; I50.9 Heart failure, unspecified; I13.0 Hypertensive heart and chronic kidney disease with heart failure and stage 1 through stage 4 chronic kidney disease, or unspecified chronic kidney disease; N39.0 Urinary tract infection, site not specified; E78.5 Hyperlipidemia, unspecified; F41.0 Panic disorder [episodic paroxysmal anxiety]; F17.200 Nicotine dependence, unspecified, uncomplicated; F09 Unspecified mental disorder due to known physiological condition; F60.9 Personality disorder, unspecified; G40.909 Epilepsy, unspecified, not intractable, without status epilepticus; I25.10 Atherosclerotic heart disease of native coronary artery without angina pectoris; F63.9 Impulse disorder, unspecified; J44.9 Chronic obstructive pulmonary disease, unspecified; N18.3 Chronic kidney disease, stage 3 (moderate); Z79.899 Other long term (current) drug therapy; Z88.1 Allergy status to other antibiotic agents; Z88.5 Allergy status to narcotic agent; Z88.0 Allergy status to penicillin; Z88.2 Allergy status to sulfonamides; Z88.8 Allergy status to other drugs, medicaments and biological substances; Z79.82 Long term (current) use of aspirin; Z68.20 Body mass index [BMI] 20.0-20.9, adult
CPT/HCPCS: 36415; 70450; 71045; 74177; 80048; 80053; 80061; 80307; 81001; 82306; 82553; 82607; 83036; 83540; 83550; 83735; 83880; 84436; 84443; 84480; 84484; 85025; 85045; 85610; 85651; 85730; 86140; 86593; 87086; 87186; 93005; 94640; 99406; J1650; J7620; J7626; 97110; 97116; 97530; 97535; 99285-25; G0479